=== PATIENT | female | born 1965 | race Caucasian/White ===

== ENCOUNTER 2016-09-20 21:28 | Emergency (ER) | payer BC ==
--- NOTE | 2016-09-20 22:19 | ED ---
General Adult HPI - General Chief complaint: Head Injury Stated complaint: Head Injury Time Seen by Provider: 09/20/16 21:50 Source: patient, family, RN notes reviewed Mode of arrival: wheelchair Limitations: no limitations - History of Present Illness Initial comments: 50-year-old female presents to the emergency department with a chief complaint of head injury. Patient without in the garden today and then she came in and has been states she was acting differently. He states when she came in she told him he fell but she was coming with the dog and she was carrying baskets we think much of it. Patient's and states she started kind of funny she started to say things just didn't seem real and she didn't seem to remember the event. He was concerned due to her behavior so they thought that they should be evaluated. Patient denies any recent fever, chills, shortness of breath, chest pain, back pain, abdominal pain, nausea vomiting, numbness or tingling, dysuria or hematuria, constipation or diarrhea, visual changes, or any other current symptoms. - Related Data Home Medications Medication Instructions Recorded Confirmed Fexofenadine HCl 180 mg PO DAILY 09/20/16 09/20/16 Fluticasone Nasal [place] [Flonase 1 spray EA NOSTRIL DAILY 09/20/16 09/20/16 Nasal [place]] Fluticasone Propionate [Flovent 2 puff INHALATION RT-DAILY 09/20/16 09/20/16 Hfa 110mcg] Allergies Allergy/AdvReac Type Severity Reaction Status Date / Time amoxicillin AdvReac Rash/Hives Verified 09/20/16 22:22 cefaclor [From Ceclor] AdvReac Rash/Hives Verified 09/20/16 22:22 Review of Systems ROS Statement: Those systems with pertinent positive or pertinent negative responses have been documented in the HPI. ROS Other: All systems not noted in ROS Statement are negative. Past Medical History Past Medical History: Asthma History of Any Multi-Drug Resistant Organisms: None Reported Past Surgical History: Orthopedic Surgery, Tonsillectomy Additional Past Surgical History / Comment(s): Right ankle Past Psychological History: No Psychological Hx Reported Smoking Status: Never smoker Past Alcohol Use History: Daily Past Drug Use History: None Reported General Exam Limitations: no limitations General appearance: alert Head exam: Present: atraumatic, normocephalic, normal inspection Eye exam: Present: normal appearance, PERRL, EOMI. Absent: scleral icterus, conjunctival injection, periorbital swelling ENT exam: Present: normal exam, mucous membranes moist Neck exam: Present: normal inspection. Absent: tenderness, meningismus, lymphadenopathy Respiratory exam: Present: normal lung sounds bilaterally. Absent: respiratory distress, wheezes, rales, rhonchi, stridor Cardiovascular Exam: Present: regular rate, normal rhythm, normal heart sounds. Absent: systolic murmur, diastolic murmur, rubs, gallop, clicks Extremities exam: Present: normal inspection, full ROM, normal capillary refill. Absent: tenderness, pedal edema, joint swelling, calf tenderness Neurological exam: Present: alert, oriented X3, CN II-XII intact, normal gait, reflexes normal. Absent: motor sensory deficit Psychiatric exam: Present: normal affect, normal mood Skin exam: Present: warm, dry, intact, normal color. Absent: rash Course Vital Signs 09/20/16 09/20/16 09/20/16 21:35 22:13 23:25 Temperature 97.3 F L 98.0 F Pulse Rate 91 78 Respiratory 18 16 Rate Blood Pressure 181/118 163/102 151/102 O2 Sat by Pulse 99 97 Oximetry Medical Decision Making - Medical Decision Making 50-year-old female presents emergency Department chief complaint of fall and head injury. Patient this time is neurologically intact however she does have some confusion. Patient went for computed tomography scan. At this time patient's computed tomography scan was reviewed and negative. At this time patient's confusion has improved. We discussed that we like to transfer her to the [facility] due to the fact we are concerned about the patient having a concussion with her confusion and head injury we like her to be watched overnight due to her symptoms. The patient states that she does not want to stay here she would like to go home. Family states that they will not be transferred. The like to go home he states that she is doing better in the local home. We did discuss that she could start to have a brain bleed we discussed this could lead to we did discuss other etiologies. The history is vague because she does not really remember what happened there is suspicion that she was likely to bilateral posterior causing an injury. Discussed it could be from her heart it could be seizure many other causes. This and he stated they would like to go home. At this time they will decide to make sure CAT scan was negative. They believe that she most likely just has a concussion. At this time the patient will be leaving AGAINST MEDICAL ADVICE. - Radiology Data Radiology results: report reviewed, image reviewed Disposition Clinical Impression: Fall Disposition: Left Against Medical Advice Instructions: Concussion (ED), Head Injury (ED) Referrals: Luan Mota MD [Primary Care Provider] - 1-2 days
[2016-09-20 23:29] VITALS: BP 151/102; PULSE 78; RESP 16; TEMP 98
--- NOTE | 2016-09-20 23:34 | CT ---
EXAM: CT Head Without Intravenous Contrast CLINICAL HISTORY: Reason: Pain TECHNIQUE: Axial computed tomography images of the head/brain without intravenous contrast. CTDI is 60.30 mGy and DLP is 1067.50 mGy-cm. This CT exam was performed using one or more of the following dose reduction techniques: automated exposure control, adjustment of the mA and/or kV according to patient size, and/or use of iterative reconstruction technique. COMPARISON: No relevant prior studies available. FINDINGS: Brain: Unremarkable. No hemorrhage. No significant white matter disease. No edema. Ventricles: Age appropriate atrophy. No ventriculomegaly or midline shift. Bones/joints: Unremarkable. No acute fracture. Soft tissues: Unremarkable. Sinuses: Unremarkable as visualized. No acute sinusitis. Mastoid air cells: Unremarkable as visualized. No mastoid effusion. IMPRESSION: No acute disease. No findings to explain pain. EXAM: CT Cervical Spine Without Intravenous Contrast CLINICAL HISTORY: Reason: Pain TECHNIQUE: Axial computed tomography images of the cervical spine without intravenous contrast. CTDI is 14.10 mGy and DLP is 295.70 mGy-cm. This CT exam was performed using one or more of the following dose reduction techniques: automated exposure control, adjustment of the mA and/or kV according to patient size, and/or use of iterative reconstruction technique. COMPARISON: No relevant prior studies available. FINDINGS: Vertebrae: Multilevel spine degenerative changes mostly mild to moderate at C5-6. No acute fracture. Discs/spinal canal/neural foramina: No acute findings. No spinal canal stenosis. Soft tissues: Unremarkable. Lung apices: Unremarkable as visualized. IMPRESSION: No acute or healing fracture or malalignment.
== END 2016-09-21 | disposition left against medical advice (07) ==
LOC: EC 21:28
DX: S09.90XA Unspecified injury of head, initial encounter (principal); R41.0 Disorientation, unspecified; J45.909 Unspecified asthma, uncomplicated; Z88.0 Allergy status to penicillin; Z88.1 Allergy status to other antibiotic agents; Z79.51 Long term (current) use of inhaled steroids; Z79.899 Other long term (current) drug therapy; Z53.29 Procedure and treatment not carried out because of patient's decision for other reasons; W19.XXXA Unspecified fall, initial encounter; Y93.89 Activity, other specified; Y92.096 Garden or yard of other non-institutional residence as the place of occurrence of the external cause
CPT/HCPCS: 70450; 72125; 99283

== ENCOUNTER → 2017-02-16 | Outpatient (CLI) | payer BC ==
--- NOTE | 2017-02-18 12:43 | MM ---
Reason for exam: screening (asymptomatic). Last mammogram was performed 1 year ago. History: Patient is nulliparous. Took hormonal contraceptives for 15 years. Physical Findings: A clinical breast exam by your physician is recommended on an annual basis and results should be correlated with mammographic findings. MG Screening Mammo w CAD Bilateral CC and MLO view(s) were taken. Prior study comparison: February 02, 2016, bilateral MG screening mammo w CAD. January 31, 2015, bilateral MG screening mammo w CAD. The breast tissue is extremely dense which could obscure a lesion on mammography. There are typically benign calcifications in both breasts. There is chronic nodularity in the left breast. No significant changes when compared with prior studies. ASSESSMENT: Benign, BI-RAD 2 RECOMMENDATION: Routine screening mammogram of both breasts in 1 year.
== END | disposition home or self-care (01) ==
LOC: RADMAMWWP 11:52
PROVIDERS: ATTEND Internal Medicine
DX: Z12.31 Encounter for screening mammogram for malignant neoplasm of breast (principal)
CPT/HCPCS: 77067

== ENCOUNTER 2018-01-17 08:16 | Day surgery (SDC) | payer BC ==
[2018-01-15 09:21] VITALS: BMI 29.9
[~2018-01-17 08:16] MED LIST: LACTATED RINGERS 1,000 ML IV SCH
[2018-01-17 08:41] VITALS: RESP 16; TEMP 97.6
[2018-01-17] MEDS ORDERED: LIDOCAINE 1% 20 ML VIAL (10MG/ML) FOR IV START INTRADERMA ONE (08:48)
[2018-01-17] MEDS ORDERED: PROPOFOL 10 MG/ML 20 ML VIAL IV ONE (09:02)
--- NOTE | 2018-01-17 09:09 | P.GSHP ---
History of Present Illness H&P Date: 01/17/18 Chief Complaint: Colonoscopy, screening This a 52-year-old female who presents today for screening colonoscopy. Patient denies a significant GI complaints. Past Medical History Past Medical History: Asthma History of Any Multi-Drug Resistant Organisms: None Reported Past Surgical History: Orthopedic Surgery, Tonsillectomy Additional Past Surgical History / Comment(s): Right ankle SX Past Anesthesia/Blood Transfusion Reactions: No Reported Reaction Smoking Status: Never smoker - Past Family History Mother Family Medical History: No Reported History Medications and Allergies Home Medications Medication Instructions Recorded Confirmed Type Fexofenadine HCl 180 mg PO DAILY 09/20/16 01/17/18 History Fluticasone Nasal [place] [Flonase 1 spray EA NOSTRIL DAILY 09/20/16 01/17/18 History Nasal [place]] Fluticasone Propionate [Flovent 2 puff INHALATION RT-DAILY 09/20/16 01/17/18 History Hfa 110mcg] Allergies Allergy/AdvReac Type Severity Reaction Status Date / Time amoxicillin AdvReac Rash/Hives Verified 01/15/18 09:18 cefaclor [From Ceclor] AdvReac Rash/Hives Verified 01/15/18 09:18 Surgical - Exam Vital Signs Temp Pulse Resp BP Pulse Ox 97.6 F 66 16 165/106 100 01/17/18 08:30 01/17/18 08:30 01/17/18 08:30 01/17/18 08:30 01/17/18 08:30 - General well developed, well nourished, no distress - Eyes PERRL - ENT normal pinna - Neck no masses - Respiratory normal expansion - Cardiovascular Rhythm: regular - Abdomen Abdomen: soft, non tender Assessment and Plan Assessment: We will perform screening colonoscopy
[2018-01-17 09:41] VITALS: BP 140/95; PULSE 62
--- NOTE | 2018-01-17 09:41 | P.OP ---
Date of Procedure: 01/17/18 Preoperative Diagnosis: Screening colonoscopy Postoperative Diagnosis: Diverticulosis Procedure(s) Performed: Colonoscopy Anesthesia: MAC Surgeon: Constantin Saleh Pathology: none sent Condition: stable Disposition: PACU Description of Procedure: The patient's placed on the endoscopy table in the lateral position. She received IV sedation. Digital rectal exam was performed which revealed no abnormalities. The possible colonoscope was then placed patient anus and passed throughout the entire colon. The ileocecal valve was visually is. The cecum, ascending and transverse colon appeared normal. In the descending and sigmoid colon there is mild diverticular changes. The scope was then brought back the rectum and this appeared normal. Scope was withdrawn for patient.
== END 2018-01-17 10:15 | disposition home or self-care (01) ==
LOC: ORWHC2ENDO 08:16
PROVIDERS: ATTEND Surgery
DX: Z12.11 Encounter for screening for malignant neoplasm of colon (principal); K57.30 Diverticulosis of large intestine without perforation or abscess without bleeding; J45.909 Unspecified asthma, uncomplicated; Z79.899 Other long term (current) drug therapy; Z88.1 Allergy status to other antibiotic agents; Z88.0 Allergy status to penicillin
CPT/HCPCS: 81025; J2704; G0121; 45378

== ENCOUNTER 2018-01-22 12:36 | Observation (INO) | payer BC ==
[2018-01-22] MEDS ORDERED: NITROGLYCERIN OINT 1 INCH/GM PACKET TOPICAL STA (12:52)
[2018-01-22] MEDS ORDERED: ASPIRIN 81 MG PO STA (12:52)
--- NOTE | 2018-01-22 12:57 | ED ---
General Adult HPI - General Stated complaint: chest pain Time Seen by Provider: 01/22/18 12:40 Source: patient, EMS, RN notes reviewed Mode of arrival: EMS Limitations: no limitations - History of Present Illness Initial comments: Patient is a pleasant 52-year-old female presenting to the emergency department chest discomfort. Onset was an hour ago while at work. Patient has been under increased stress recently. Patient had tightness in her chest with radiation to the left jaw. Discomfort has now resolved. No associated dyspnea, nausea, or diaphoresis. No history of similar symptoms previously. - Related Data Home Medications Medication Instructions Recorded Confirmed Fexofenadine HCl 180 mg PO DAILY 09/20/16 01/22/18 Fluticasone Propionate [Flovent 2 puff INHALATION RT-DAILY 01/22/18 01/22/18 Hfa 44 mcg] Allergies Allergy/AdvReac Type Severity Reaction Status Date / Time amoxicillin AdvReac Rash/Hives Verified 01/22/18 13:23 cefaclor [From Ceclor] AdvReac Rash/Hives Verified 01/22/18 13:23 Review of Systems ROS Statement: Those systems with pertinent positive or pertinent negative responses have been documented in the HPI. ROS Other: All systems not noted in ROS Statement are negative. Constitutional: Denies: fever Eyes: Denies: eye pain ENT: Denies: ear pain Respiratory: Denies: cough Cardiovascular: Reports: as per HPI, chest pain Endocrine: Denies: fatigue Gastrointestinal: Denies: abdominal pain Genitourinary: Denies: dysuria Musculoskeletal: Denies: back pain Skin: Denies: rash Neurological: Denies: weakness Past Medical History Past Medical History: Asthma History of Any Multi-Drug Resistant Organisms: None Reported Past Surgical History: Orthopedic Surgery, Tonsillectomy Additional Past Surgical History / Comment(s): Right ankle SX Past Anesthesia/Blood Transfusion Reactions: No Reported Reaction Smoking Status: Never smoker - Past Family History Mother Family Medical History: No Reported History General Exam Limitations: no limitations General appearance: alert, in no apparent distress Head exam: Present: atraumatic Eye exam: Present: normal appearance, PERRL ENT exam: Present: normal oropharynx Neck exam: Present: normal inspection Respiratory exam: Present: normal lung sounds bilaterally. Absent: chest wall tenderness Cardiovascular Exam: Present: regular rate, normal rhythm Expanded Peripheral pulses: 2+: Radial (R), Radial (L), Dorsalis Pedis (R), Dorsalis Pedis (L) GI/Abdominal exam: Present: soft. Absent: tenderness Extremities exam: Present: normal inspection. Absent: pedal edema, calf tenderness Neurological exam: Present: alert Psychiatric exam: Present: normal affect, normal mood Skin exam: Present: normal color Course Vital Signs 01/22/18 12:40 Temperature 97.9 F Pulse Rate 69 Respiratory 18 Rate Blood Pressure 158/10 O2 Sat by Pulse 99 Oximetry EKG Findings - EKG Comments: EKG Findings:: Normal sinus rhythm 73. MN 142. QRS 96. QT 426. QTc 469. Left axis. Normal QRS. No acute ST change. Medical Decision Making - Medical Decision Making Patient reevaluated and resting comfortably in bed. No chest discomfort. Patient updated on results and plan. Case was crusted detail with Dr. Mota, who will admit his patient. - Lab Data Result diagrams: 01/22/18 13:10 01/22/18 13:10 Lab Results 01/22/18 01/22/18 01/22/18 Range/Units 13:10 13:10 13:10 WBC 6.0 (3.8-10.6) k/uL RBC 5.05 (3.80-5.40) m/uL Hgb 15.7 (11.4-16.0) gm/dL Hct 46.9 H (34.0-46.0) % MCV 92.9 D (80.0-100.0) fL MCH 31.0 (25.0-35.0) pg MCHC 33.4 (31.0-37.0) g/dL RDW 12.7 (11.5-15.5) % Plt Count 254 (150-450) k/uL Neutrophils % 52 % Lymphocytes % 33 % Monocytes % 8 % Eosinophils % 2 % Basophils % 1 % Neutrophils # 3.1 (1.3-7.7) k/uL Lymphocytes # 2.0 (1.0-4.8) k/uL Monocytes # 0.5 (0-1.0) k/uL Eosinophils # 0.1 (0-0.7) k/uL Basophils # 0.0 (0-0.2) k/uL PT (9.0-12.0) sec INR (<1.2) APTT (22.0-30.0) sec Sodium 138 (137-145) mmol/L Potassium 4.1 (3.5-5.1) mmol/L Chloride 104 (98-107) mmol/L Carbon Dioxide 27 (22-30) mmol/L Anion Gap 7 mmol/L BUN 14 (7-17) mg/dL Creatinine 0.81 (0.52-1.04) mg/dL Est GFR (CKD-EPI)AfAm >90 (>60 ml/min/1.73 sqM) Est GFR (CKD-EPI)NonAf 84 (>60 ml/min/1.73 sqM) Glucose 100 H (74-99) mg/dL Calcium 9.6 (8.4-10.2) mg/dL Magnesium 1.8 (1.6-2.3) mg/dL Total Bilirubin 0.6 (0.2-1.3) mg/dL AST 27 (14-36) U/L ALT 28 (9-52) U/L Alkaline Phosphatase 85 (38-126) U/L Total Creatine Kinase 73 (30-135) U/L CK-MB (CK-2) 1.1 (0.0-2.4) ng/mL CK-MB (CK-2) Rel Index 1.5 Troponin I <0.012 (0.000-0.034) ng/mL Total Protein 7.5 (6.3-8.2) g/dL Albumin 4.2 (3.5-5.0) g/dL 01/22/18 Range/Units 13:10 WBC (3.8-10.6) k/uL RBC (3.80-5.40) m/uL Hgb (11.4-16.0) gm/dL Hct (34.0-46.0) % MCV (80.0-100.0) fL MCH (25.0-35.0) pg MCHC (31.0-37.0) g/dL RDW (11.5-15.5) % Plt Count (150-450) k/uL Neutrophils % % Lymphocytes % % Monocytes % % Eosinophils % % Basophils % % Neutrophils # (1.3-7.7) k/uL Lymphocytes # (1.0-4.8) k/uL Monocytes # (0-1.0) k/uL Eosinophils # (0-0.7) k/uL Basophils # (0-0.2) k/uL PT 10.0 (9.0-12.0) sec INR 0.9 (<1.2) APTT 24.4 (22.0-30.0) sec Sodium (137-145) mmol/L Potassium (3.5-5.1) mmol/L Chloride (98-107) mmol/L Carbon Dioxide (22-30) mmol/L Anion Gap mmol/L BUN (7-17) mg/dL Creatinine (0.52-1.04) mg/dL Est GFR (CKD-EPI)AfAm (>60 ml/min/1.73 sqM) Est GFR (CKD-EPI)NonAf (>60 ml/min/1.73 sqM) Glucose (74-99) mg/dL Calcium (8.4-10.2) mg/dL Magnesium (1.6-2.3) mg/dL Total Bilirubin (0.2-1.3) mg/dL AST (14-36) U/L ALT (9-52) U/L Alkaline Phosphatase (38-126) U/L Total Creatine Kinase (30-135) U/L CK-MB (CK-2) (0.0-2.4) ng/mL CK-MB (CK-2) Rel Index Troponin I (0.000-0.034) ng/mL Total Protein (6.3-8.2) g/dL Albumin (3.5-5.0) g/dL - Radiology Data Radiology results: image reviewed (Chest x-ray shows no acute process) Disposition Clinical Impression: Chest pain Disposition: ADMITTED IP TO THIS [facility] Is patient prescribed a controlled substance at d/c from ED?: No Referrals: Luan Mota MD [Primary Care Provider] - 1-2 days Decision Time: 15:11
[2018-01-22 13:44] LABS: Basophils % (A) 1 %; Eosinophils # (A) 0.1 k/uL (0-0.7); Eosinophils % (A) 2 %; HCT 46.9 % (34.0-46.0); HGB 15.7 gm/dL (11.4-16.0); Lymphocytes % (A) 33 %; MCHC 33.4 g/dL (31.0-37.0); Mean Platelet Volume 7.5; Monocytes # (A) 0.5 k/uL (0-1.0); Monocytes % (A) 8 %; Neutrophils # (A) 3.1 k/uL (1.3-7.7); Neutrophils % (A) 52 %; Platelet Count 254 k/uL (150-450); RBC 5.05 m/uL (3.80-5.40); RDW 12.7 % (11.5-15.5)
[2018-01-22 13:45] LABS: INR 0.9 (<1.2); Partial Thromboplastin Time 24.4 sec (22.0-30.0)
[2018-01-22 13:46] LABS: MCV 92.9 fL (80.0-100.0)
[2018-01-22 13:47] LABS: ALT 28 U/L (9-52); AST 27 U/L (14-36); Albumin 4.2 g/dL (3.5-5.0); Alkaline Phosphatase 85 U/L (38-126); Anion Gap 7 mmol/L; Blood Urea Nitrogen 14 mg/dL (7-17); Calcium 9.6 mg/dL (8.4-10.2); Carbon Dioxide 27 mmol/L (22-30); Chloride 104 mmol/L (98-107); Glucose 100 mg/dL (74-99); Magnesium 1.8 mg/dL (1.6-2.3); Potassium 4.1 mmol/L (3.5-5.1); Sodium 138 mmol/L (137-145); Total Bilirubin 0.6 mg/dL (0.2-1.3); Total Protein 7.5 g/dL (6.3-8.2)
--- NOTE | 2018-01-22 14:00 | XR ---
EXAMINATION TYPE: XR chest 2V DATE OF EXAM: 01/22/2018 COMPARISON: None INDICATION: Chest pain, asthma TECHNIQUE: Frontal and lateral views of the chest are obtained. FINDINGS: The heart size is normal. The pulmonary vasculature is normal. The lungs are clear. IMPRESSION: 1. No acute pulmonary process.
[2018-01-22 14:12] LABS: Creatine Kinase 73 U/L (30-135)
[2018-01-22 14:25] LABS: Creatine Kinase MB 1.1 ng/mL (0.0-2.4); Troponin I <0.012 ng/mL (0.000-0.034)
[2018-01-22] MEDS ORDERED: NITROGLYCERIN SL TABS 0.4 MG TAB SUBLINGUAL PRN (15:11)
--- NOTE | 2018-01-22 15:39 | P.HPIM ---
History of Present Illness H&P Date: 01/22/18 Chief Complaint: chest pain This is a 52-year-old female patient who presented to the emergency room with complaints of chest pain. Patient states she was at work when she started to experience chest tightness in her chest that radiated to her left jaw patient's discomfort lasted approximately 20 minutes and then improved. Patient denies any nausea vomiting or diaphoresis with chest pain episode. Patient does admit to being under increased stress with her parents. Patient does have a past medical history for asthma orthopedic surgery and drinks approximately 2-3 times a day. Patient denies any nicotine dependence. Patient denies any significant family cardiac history. X-ray completed showing no acute pulmonary process. EKG completed showing normal sinus rhythm. Normal EKG. Initial troponin negative. Cardiology services have been consulted. This time patient denies any chest pain or shortness breath. Patient denies nausea vomiting or diarrhea. Patient denies any urinary burning or frequency. Review of Systems please refer to HPI otherwise unremarkable Past Medical History Past Medical History: Asthma History of Any Multi-Drug Resistant Organisms: None Reported Past Surgical History: Orthopedic Surgery, Tonsillectomy Additional Past Surgical History / Comment(s): Right ankle SX Past Anesthesia/Blood Transfusion Reactions: No Reported Reaction Smoking Status: Never smoker - Past Family History Mother Family Medical History: No Reported History Medications and Allergies Home Medications Medication Instructions Recorded Confirmed Type Fexofenadine HCl 180 mg PO DAILY 09/20/16 01/22/18 History Fluticasone Propionate [Flovent 2 puff INHALATION RT-DAILY 01/22/18 01/22/18 History Hfa 44 mcg] Allergies Allergy/AdvReac Type Severity Reaction Status Date / Time amoxicillin AdvReac Rash/Hives Verified 01/22/18 13:23 cefaclor [From Ceclor] AdvReac Rash/Hives Verified 01/22/18 13:23 Physical Exam Vitals: Vital Signs Temp Pulse Resp BP Pulse Ox 01/22/18 12:40 97.9 F 69 18 158/10 99 Intake and Output 01/22/18 01/22/18 01/22/18 06:59 14:59 22:59 Other: Weight 81.647 kg Head normocephalic Neck supple Lungs clear to auscultation bilaterally no wheezing or crackles Heart regular rate and rhythm S1-S2, no rub or gallop Abdomen is soft nontender nondistended positive bowel sounds no hepatosplenomegaly Extremities no edema Neuro alert and orientated to 3 Results CBC & Chem 7: 01/22/18 13:10 01/22/18 13:10 Labs: Abnormal Lab Results - Last 24 Hours (Table) 01/22/18 01/22/18 Range/Units 13:10 13:10 Hct 46.9 H (34.0-46.0) % Glucose 100 H (74-99) mg/dL Assessment and Plan Assessment: 1. Chest pain. Chest x-ray completed showing no acute pulmonary process. EKG completed showing normal sinus rhythm. Normal EKG. Initial troponin negative. Cardiac panel has been ordered. Cardiology services consulted 2. History of asthma. No exacerbation at this time 3. History of tonsillectomy 4. History of right ankle surgery AM CBC and CMP ordered awaiting cardiology input Time with Patient: Greater than 30 (Greater than 60% of the total time spent in counseling and coordination of care. I performed an examination of the patient and discussed their management with the Nurse Practitioner. I have reviewed the Nurse Practitioner's notes and agree with the documented findings and plan of care)
[2018-01-22] MEDS: NITROGLYCERIN OINT 1 INCH/GM PACKET TOPICAL SCH ×2 (17:59→22:41)
[2018-01-22 20:40] LABS: Creatine Kinase 60 U/L (30-135)
[2018-01-22 20:54] LABS: Creatine Kinase MB 0.9 ng/mL (0.0-2.4); Troponin I <0.012 ng/mL (0.000-0.034)
[2018-01-23 02:22] LABS: Creatine Kinase 61 U/L (30-135)
[2018-01-23 02:35] LABS: Creatine Kinase MB 0.8 ng/mL (0.0-2.4); Troponin I <0.012 ng/mL (0.000-0.034)
[2018-01-23] MEDS: NITROGLYCERIN OINT 1 INCH/GM PACKET TOPICAL SCH (03:32)
[2018-01-23 06:32] LABS: Basophils % (A) 1 %; Eosinophils # (A) 0.2 k/uL (0-0.7); Eosinophils % (A) 3 %; HCT 44.8 % (34.0-46.0); HGB 14.8 gm/dL (11.4-16.0); Lymphocytes % (A) 33 %; MCH 31.2 pg (25.0-35.0); MCHC 33.1 g/dL (31.0-37.0); Mean Platelet Volume 7.7; Monocytes # (A) 0.5 k/uL (0-1.0); Monocytes % (A) 8 %; Neutrophils # (A) 3.3 k/uL (1.3-7.7); Neutrophils % (A) 54 %; Platelet Count 233 k/uL (150-450); RBC 4.76 m/uL (3.80-5.40); RDW 12.5 % (11.5-15.5); WBC 6.1 k/uL (3.8-10.6)
[2018-01-23 06:36] LABS: ALT 34 U/L (9-52); AST 23 U/L (14-36); Albumin 3.8 g/dL (3.5-5.0); Alkaline Phosphatase 70 U/L (38-126); Anion Gap 7 mmol/L; Blood Urea Nitrogen 13 mg/dL (7-17); Calcium 9.3 mg/dL (8.4-10.2); Carbon Dioxide 25 mmol/L (22-30); Chloride 107 mmol/L (98-107); Cholesterol 216 mg/dL (<200); Glucose 107 mg/dL (74-99); HDL Cholesterol 66 mg/dL (40-60); LDL Cholesterol,Calculated 131 mg/dL (0-99); Potassium 4.6 mmol/L (3.5-5.1); Sodium 139 mmol/L (137-145); Total Bilirubin 0.6 mg/dL (0.2-1.3); Total Protein 6.7 g/dL (6.3-8.2); Triglycerides 96 mg/dL (<150)
--- NOTE | 2018-01-23 07:36 | CONS ---
CONSULTATION Mrs. Leyva is a 52-year-old female with no cardiac history who presented with symptoms of chest discomfort radiating to the jaw. The discomfort started while she was at her desk working radiating up to the jaw. It was not associated with any other symptoms and lasted for about 20 minutes, came into the emergency room and subsequently admitted. At the time of my evaluation, she is pain free. She is relatively active, walks at work during her lunch break and has no associated dyspnea or chest discomfort. She denies any dizziness, palpitation, or syncope. No PND, orthopnea, or peripheral edema. She has no prior documented history of obstructive coronary artery disease. Her coronary risk factors are negative for smoking. She is nondiabetic. She has remote history of hypertension, but not at this time. Her lipid profile is not available. MEDICATIONS: Her medications include Flovent and fexofenadine. REVIEW OF SYSTEMS: RESPIRATORY SYSTEM: She has history of asthma, but has been stable. No significant dyspnea on exertion. GI SYSTEM: No recent GI bleed. No peptic ulcer disease. SYSTEM: No dysuria or hematuria. NERVOUS SYSTEM: No stroke or seizure. PHYSICAL EXAMINATION: She is a 52-year-old female, alert, oriented, in no apparent distress. Blood pressure 119/70 with the heart rate in the 60s. HEAD: Normocephalic. EYES: Sclerae anicteric. NECK: Good carotid upstroke. No bruit. No jugular venous distention. LUNGS: Clear to auscultation. HEART: Regular rate and rhythm. S1, S2. No S3. No S4. No murmur or rub. ABDOMEN: Soft, nontender. Positive bowel sounds. No organomegaly. EXTREMITIES: No edema. Intact distal pulses. LAB DATA: Lab data revealed troponin less than 0.012 for 3 samples. BUN creatinine 13 and 0.78. Hemoglobin of 14.8. Cholesterol 216, LDL of 131 with an HDL of 66. EKG revealed a sinus mechanism, borderline left axis deviation, poor R progression. Chest x-ray shows no infiltrate. IMPRESSION: 1. Chest discomfort has atypical features for ischemic heart disease probably noncardiac in etiology. 2. History of bronchial asthma, stable. 3. Hyperlipidemia. RECOMMENDATION: From the cardiac standpoint, her symptoms do not suggest to be ischemic in origin. I would proceed with stress echocardiogram and depending on those findings, further recommendation will be made. Thank you for this consult. We will follow with you. MMODL / IJN: [id number] /
[2018-01-23] MEDS: FLUTICASONE 110 MCG INHALER INHALATION SCH ×2 (07:54→20:25)
[2018-01-23] MEDS ORDERED: FLUTICASONE 44 MCG INHALER INHALATION SCH (08:00)
--- NOTE | 2018-01-23 09:19 | ECHOF ---
Referral Reason:cp MEASUREMENTS -------- HEIGHT: 165.1 cm WEIGHT: 81.6 kg BP: 128/90 RVIDd: 2.9 cm (< 3.3) IVSd: 1.1 cm (0.6 - 1.1) LVIDd: 3.8 cm (3.9 - 5.3) LVPWd: 1.0 cm (0.6 - 1.1) IVSs: 1.6 cm LVIDs: 2.9 cm LVPWs: 1.2 cm Ao Diam: 2.9 cm (2.0 - 3.7) AV Cusp: 1.9 cm (1.5 - 2.6) MV EXCURSION: 19.132 mm (> 18.000) MV EF SLOPE: 85 mm/s (70 - 150) EPSS: 0.6 cm MV E Nash: 0.63 m/s MV DecT: 320 ms MV A Nash: 0.86 m/s MV E/A Ratio: 0.73 RAP: 5.00 mmHg RVSP: 19.78 mmHg FINDINGS -------- Sinus rhythm. This was a technically good study. LV size, wall thickness and systolic function are normal, with an EF greater than 55%. The left farzana tricular size is normal. The right ventricle is normal in size. The left atrial size is normal. The right atrial size is normal. There is mild aortic valve sclerosis. There is no evidence of aortic regurgitation. The mitral valve is normal. Mild mitral regurgitation is present. Mild tricuspid regurgitation present. Right ventricular systolic pressure is normal at < 35 mmHg. The right ventricular systolic pressure, as measured by Doppler, is 19.78mmHg. Trace/mild (physiologic) pulmonic regurgitation. The aortic root size is normal. Ascending Aortic is dilated and measures 4.0cm. There is no pericardial effusion. CONCLUSIONS -------- 1. Sinus rhythm. 2. This was a technically good study. 3. LV size, wall thickness and systolic function are normal, with an EF greater than 55%. 4. The left ventricular size is normal. 5. The left atrial size is normal. 6. There is mild aortic valve sclerosis. 7. Mild mitral regurgitation is present. 8. Mild tricuspid regurgitation present. 9. Right ventricular systolic pressure is normal at < 35 mmHg. 10. Trace/mild (physiologic) pulmonic regurgitation. 11. The aortic root size is normal. 12. Ascending Aortic is dilated and measures 4.0cm. 13. There is no pericardial effusion. MECHANIC FIELD SERVICE: Aria Naranjo RDCS
[2018-01-23] MEDS: ASPIRIN 325 MG TAB PO SCH (11:52)
[2018-01-23] MEDS: LORATADINE 10 MG TAB PO SCH (11:52)
[2018-01-23] MEDS ORDERED: ATORVASTATIN 80 MG TAB PO STA (12:24)
[2018-01-23] MEDS ORDERED: ALPRAZolam 0.5 MG TAB PO PRN (12:24)
[2018-01-23] MEDS ORDERED: ASPIRIN 325 MG TAB PO STA (12:24)
[2018-01-23] MEDS ORDERED: ALPRAZolam 0.25 MG TAB PO PRN (12:24)
[2018-01-23] MEDS ORDERED: NITROGLYCERIN SL TABS 0.4 MG TAB SUBLINGUAL PRN (12:24)
[2018-01-23] MEDS ORDERED: SODIUM CHLORIDE 0.9% 1,000 ML in EMPTY BAG 1 BAG IV ONE (12:24)
--- NOTE | 2018-01-23 13:55 | P.PN ---
Subjective Progress Note Date: 01/23/18 This is a 52-year-old female patient who presented to the emergency room with complaints of chest pain. Patient states she was at work when she started to experience chest tightness in her chest that radiated to her left jaw patient's discomfort lasted approximately 20 minutes and then improved. Patient denies any nausea vomiting or diaphoresis with chest pain episode. Patient does admit to being under increased stress with her parents. Patient does have a past medical history for asthma orthopedic surgery and drinks approximately 2-3 times a day. Patient denies any nicotine dependence. Patient denies any significant family cardiac history. X-ray completed showing no acute pulmonary process. EKG completed showing normal sinus rhythm. Normal EKG. Initial troponin negative. Cardiology services have been consulted. This time patient denies any chest pain or shortness breath. Patient denies nausea vomiting or diarrhea. Patient denies any urinary burning or frequency. On 01/23/2018 patient had stress test completed. Patient is requiring a cardiac cath tomorrow per cardiology. At this time patient denies any chest pain or shortness breath. Patient denies nausea vomiting or diarrhea. Patient denies any urinary burning or frequency. Objective - Vital Signs Vital signs: Vital Signs Temp 97.5 F L 01/23/18 11:49 Pulse 88 01/23/18 11:49 Resp 18 01/23/18 11:49 BP 152/102 01/23/18 11:49 Pulse Ox 97 01/23/18 11:49 Intake & Output 01/22/18 01/23/18 01/23/18 18:59 06:59 18:59 Intake Total 236 240 Balance 236 240 Weight 81.7 kg Intake: Oral 236 240 Other: Voiding Method Toilet Toilet # Voids 1 - Exam Head normocephalic Neck supple Lungs clear to auscultation bilaterally no wheezing or crackles Heart regular rate and rhythm S1-S2, no rub or gallop Abdomen is soft nontender nondistended positive bowel sounds no hepatosplenomegaly Extremities no edema Neuro alert and orientated to 3 - Labs CBC & Chem 7: 01/23/18 05:45 01/23/18 05:45 Labs: Abnormal Lab Results - Last 24 Hours (Table) 01/23/18 Range/Units 05:45 Glucose 107 H (74-99) mg/dL Cholesterol 216 H (<200) mg/dL LDL Cholesterol, Calc 131 H (0-99) mg/dL HDL Cholesterol 66 H (40-60) mg/dL Assessment and Plan Assessment: 1. Chest pain. Chest x-ray completed showing no acute pulmonary process. EKG completed showing normal sinus rhythm. Normal EKG. troponins negative. 2-D echo completed showing EF greater than 55%. Patient did have stress test completed. Per cardiology services patient will undergo cardiac cath tomorrow for further evaluation. 2. History of asthma. No exacerbation at this time 3. History of tonsillectomy 4. History of right ankle surgery I performed an examination of the patient and discussed their management with the Nurse Practitioner. I have reviewed the Nurse Practitioner's notes and agree with the documented findings and plan of care
[2018-01-23] MEDS: amLODIPine 5 MG TAB PO SCH (22:30)
[2018-01-24] MEDS: ASPIRIN 325 MG TAB PO SCH (06:17)
--- NOTE | 2018-01-24 07:25 | ECHOS ---
STRESS ECHOCARDIOGRAM INDICATIONS: Chest pain. BASELINE HEART RATE: 69 BASELINE BLOOD PRESSURE: 125/91 MAXIMUM HEART RATE: 158 MAXIMUM BLOOD PRESSURE: 189/92 85% MPHR: 143 100% MPHR: 168 METS: 10.1 MAXIMUM STAGE REACHED: 3 TOTAL EXERCISE TIME: 8:45 CLINICAL INFORMATION: Baseline rhythm is sinus mechanism, rate is 69, normal axis and intervals, poor R-wave progression, nonspecific ST wave changes. baseline blood pressure 125/91 minute smoking patient status post protocol for 8 minutes 45 seconds reaching peak rate of 158 beats per minute which is equal to 94% maximum predicted heart rate. Peak blood pressure 189/92 mmHg. Test was done 60 there no chest pain electrocardiograph monitoring revealed a no evidence of diagnostic ischemic ST deviation. FINDINGS: Baseline echocardiogram revealed normal function at peak exercise, there was mild hyper questionable hypokinesis on the anterolateral wall, although not as the images were not were suboptimal. CONCLUSION: 1. Average exercise tolerance with normal cardiac response to exercise 2. Probably abnormal stress echocardiogram with a anterolateral wall hypokinesis at peak exercise there was suggestive of stress induced ischemia. Probably on the left circumflex or diagonal branch territory. MMODL / IJN: [id number] / MTDD
[2018-01-24 07:26] LABS: Basophils % (A) 1 %; Eosinophils # (A) 0.2 k/uL (0-0.7); Eosinophils % (A) 3 %; HCT 47.7 % (34.0-46.0); HGB 15.4 gm/dL (11.4-16.0); Lymphocytes % (A) 34 %; MCH 30.2 pg (25.0-35.0); MCHC 32.2 g/dL (31.0-37.0); Mean Platelet Volume 7.8; Monocytes # (A) 0.5 k/uL (0-1.0); Monocytes % (A) 8 %; Neutrophils # (A) 3.1 k/uL (1.3-7.7); Neutrophils % (A) 52 %; Platelet Count 272 k/uL (150-450); RBC 5.08 m/uL (3.80-5.40); RDW 12.7 % (11.5-15.5); WBC 5.9 k/uL (3.8-10.6)
[2018-01-24 07:28] LABS: Potassium 4.4 mmol/L (3.5-5.1)
[2018-01-24 07:29] LABS: ALT 22 U/L (9-52); AST 23 U/L (14-36); Albumin 4.1 g/dL (3.5-5.0); Alkaline Phosphatase 73 U/L (38-126); Anion Gap 7 mmol/L; Blood Urea Nitrogen 14 mg/dL (7-17); Calcium 9.5 mg/dL (8.4-10.2); Carbon Dioxide 25 mmol/L (22-30); Chloride 107 mmol/L (98-107); Glucose 100 mg/dL (74-99); Sodium 139 mmol/L (137-145); Total Bilirubin 0.8 mg/dL (0.2-1.3); Total Protein 7.1 g/dL (6.3-8.2)
[2018-01-24] MEDS: FLUTICASONE 110 MCG INHALER INHALATION SCH ×2 (07:35→19:55)
[2018-01-24] MEDS ORDERED: SODIUM CHLORIDE 0.9% 1,000 ML IV ONE (09:14)
[2018-01-24] MEDS ORDERED: LIDOCAINE 2% INJ 20 MG/ML SQ ONE (09:46)
[2018-01-24] MEDS ORDERED: fentaNYL (PF) 50 MCG/ML 2 ML AMP IVP ONE (09:46)
[2018-01-24] MEDS ORDERED: MIDAZOLAM 2 MG/2 ML VIAL IVP ONE (09:46)
[2018-01-24] MEDS ORDERED: VERAPAMIL SYRINGE (5 MG/10 ML) INTRAARTER ONE (09:47)
[2018-01-24] MEDS ORDERED: HEPARIN SODIUM 1,000 UN/ML (10ML VL) IV ONE (10:01)
[2018-01-24] MEDS ORDERED: IOPAMIDOL-370 125ML BTL INJ ONE (10:07)
[2018-01-24] MEDS ORDERED: RX INFO: IV CONTRAST WAS GIVEN 1 EACH MISC MISCELLANE PRN (10:29)
[2018-01-24] MEDS ORDERED: SODIUM CHLORIDE 0.9% 1,000 ML IV SCH (10:30)
[2018-01-24] MEDS: LORATADINE 10 MG TAB PO SCH (11:21)
[2018-01-24] MEDS: amLODIPine 5 MG TAB PO SCH (11:21)
[2018-01-24] MEDS: METOPROLOL TARTRATE 25 MG TAB PO SCH ×2 (11:24→20:15)
--- NOTE | 2018-01-24 11:28 | CC ---
CARDIAC CATHETERIZATION REPORT Mrs. Leyva is a 52-year-old female with no prior documented coronary artery disease who presented with symptoms of chest discomfort with no enzymatic changes. She underwent stress echocardiogram that revealed lateral wall ischemia. In view of that, recommendation regarding cardiac catheterization. The procedures, risks and complication were discussed with the patient who is in agreement. 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 Using Xylocaine anesthesia and Seldinger technique, a 6-[place] Islander sheath was introduced in the right radial artery. Selective right and left coronary angiography were performed using 5- [place] Islander 3.5 bend right and left Juan Alberto catheter, multiple views of the coronary artery including hemiaxial views obtained. Following that, a 5-[place] tight pigtail catheter was introduced in the left ventricle and a 30 degree CASTLE view of the left ventricle was obtained. Following that, catheter and sheaths were removed. Hemostasis was obtained with deployment of a TR band. There was no immediate complication. Patient is returned to her room in a stable condition. Of note, the patient received 5000 units of intravenous heparin as well as intra - arterial verapamil. FINDINGS: FLUOROSCOPY: There was severe calcification involving the LAD and the diagonal branch territory. LEFT MAIN: This is a short size vessel, bifurcating into left circumflex, left anterior descending artery. Left main coronary artery has no evidence of high- grade stenosis. LEFT ANTERIOR DESCENDING ARTERY: This is a large-sized vessel, reaching toward the apex with a wraparound apex segment, giving rise to a large diagonal branch, proximally the ostium of the diagonal branch is a heavily calcified 99% stenosis. The proximal LAD after takeoff of the diagonal branch has a 70% lesion. The rest of the vessel has no high-grade stenosis. LEFT CIRCUMFLEX: This is a nondominant vessel, large in caliber giving rise to 3 obtuse marginal branch. The left circumflex as well as branches have no evidence of obstructive coronary artery disease. RIGHT CORONARY ARTERY: This is a large dominant vessel, bifurcating into PDA and posterolateral segment branches. The posterolateral segment and branches of the right coronary artery and mid segment has 20% to 30% plaque. It is calcified and has no evidence of high-grade stenosis. LEFT VENTRICULOGRAM: Left ventriculogram is performed in 30 degree CASTLE view and revealed normal ventricular size and systolic function. HEMODYNAMICS: There was no gradient across the aortic valve. The left ventricle end-diastolic pressure is 8-12 mmHg. CONCLUSION: 1. Heavily calcified proximal left anterior descending artery and diagonal branch. 2. Critical stenosis involving the takeoff of the diagonal branch as well as the proximal left anterior descending artery. 3. Mild disease in the right coronary artery. 4. Normal left ventricular size and systolic function. RECOMMENDATION: At this time, I offered the patient both option of high risk complex angioplasty and stenting of the LAD, diagonal branch bifurcation versus coronary artery bypass grafting. The rationale behind both approach were discussed with the patient. Will obtain the surgical consultation and depending on her decision, further recommendation will be made. Duration of procedure 24 minutes. MMODL / IJN: [id number] / ESTHELA
--- NOTE | 2018-01-24 14:56 | P.DS ---
Providers Date of admission: 01/22/18 15:12 Expected date of discharge: 01/24/18 Attending physician: Luan Mota Consults: 01/22/18 15:11 Consult Physician Urgent Consulting Provider: Fernandez Moonye Consult Reason/Comments: cp Do you want consulting provider notified?: Yes 01/24/18 10:32 Consult Physician Routine Consulting Provider: Jose Beavers Consult Reason/Comments: cabg Do you want consulting provider notified?: Already Contacted Primary care physician: [facility] Hospital Course: Discharge diagnosis 1. Chest pain. Chest x-ray completed showing no acute pulmonary process. EKG completed showing normal sinus rhythm. Normal EKG. Initial troponin negative. Patient underwent cardiac catheterization with Dr. Lazcano. atient underwent cardiac catheterization and was found to have heavily calcified proximal left anterior descending artery and diagonal branch. Critical stenosis involving the takeoff of the diagonal branch as well as the proximal left anterior descending artery and diagonal branch. Critical stenosis involving the takeoff of the diagonal branch as well as proximal left anterior descending artery. Mild disease in the right coronary artery. Normal left ventricle size and systolic function.. Options of high risk complex angioplasty and stenting of the LAD, diagonal branch bifurcation versus coronary artery bypass grafting were presented per cardiology. Cardiothoracic surgery has been consulted awaiting input and plan 2. History of asthma. No exacerbation at this time 3. History of tonsillectomy 4. History of right ankle surgery Hospital course This is a 52-year-old female patient who presented to the emergency room with complaints of chest pain. Patient states she was at work when she started to experience chest tightness in her chest that radiated to her left jaw patient's discomfort lasted approximately 20 minutes and then improved. Patient denies any nausea vomiting or diaphoresis with chest pain episode. Patient does admit to being under increased stress with her parents. Patient does have a past medical history for asthma orthopedic surgery and drinks approximately 2-3 times a day. Patient denies any nicotine dependence. Patient denies any significant family cardiac history. X-ray completed showing no acute pulmonary process. EKG completed showing normal sinus rhythm. Normal EKG. Initial troponin negative. Cardiology services have been consulted. This time patient denies any chest pain or shortness breath. Patient denies nausea vomiting or diarrhea. Patient denies any urinary burning or frequency. On 01/24/2018 patient underwent cardiac catheterization and was found to have heavily calcified proximal left anterior descending artery and diagonal branch. Critical stenosis involving the takeoff of the diagonal branch as well as the proximal left anterior descending artery and diagonal branch. Critical stenosis involving the takeoff of the diagonal branch as well as proximal left anterior descending artery. Mild disease in the right coronary artery. Normal left ventricle size and systolic function. Awaiting cardiothoracic input prior to discharge to discuss options of high risk complex angioplasty and stenting of the LAD diagonal branch bifurcation versus coronary artery bypass grafting. This time patient is resting comfortably in bed. Patient denies chest pain or shortness of breath. Patient denies nausea vomiting or diarrhea. Patient denies any urinary burning or frequency. Patient to be to be seen and evaluated by cardiothoracic surgeon prior to discharge to discuss plan of care Patient Condition at Discharge: Stable Plan - Discharge Summary Discharge Rx Participant: Yes New Discharge Prescriptions: New amLODIPine [Norvasc] 5 mg PO DAILY 30 Days #30 tab Aspirin 81 mg PO DAILY #30 chew Atorvastatin [Lipitor] 40 mg PO DAILY 30 Days #30 tab Metoprolol Tartrate [Lopressor] 25 mg PO BID 30 Days #60 tab Continue Fexofenadine HCl 180 mg PO DAILY Fluticasone Propionate [Flovent Hfa 44 mcg] 2 puff INHALATION RT-DAILY Discharge Medication List Fexofenadine HCl 180 mg PO DAILY 09/20/16 [History] Fluticasone Propionate [Flovent Hfa 44 mcg] 2 puff INHALATION RT-DAILY 01/22/18 [History] Aspirin 81 mg PO DAILY #30 chew 01/24/18 [Rx] Atorvastatin [Lipitor] 40 mg PO DAILY 30 Days #30 tab 01/24/18 [Rx] Metoprolol Tartrate [Lopressor] 25 mg PO BID 30 Days #60 tab 01/24/18 [Rx] amLODIPine [Norvasc] 5 mg PO DAILY 30 Days #30 tab 01/24/18 [Rx] Follow up Appointment(s)/Referral(s): Gaetano Elizabeth MD [STAFF PHYSICIAN] - 1 Week (Office will call to schedule an appt) Luan Moat MD [Primary Care Provider] - 1-2 days
--- NOTE | 2018-01-24 16:57 | P.GSCN ---
History of Present Illness Consult date: 01/24/18 Reason for Consult: Coronary artery disease, surgical recommendations Requesting physician: Gaetano Elizabeth History of present illness: This is a 52-year-old active female patient who follows with Dr. Mota on an outpatient basis. She has a previous medical history of remote hypertension, asthma, hyperlipidemia, daily alcohol use of 2-3 drinks per day. She presented to [facility] emergency room 2 days ago with complaints of chest tightness with radiation to her left jaw while at work. She denied any shortness of breath, nausea, diaphoresis, and states she never had these symptoms prior. EKG was completed which demonstrated normal sinus rhythm. Troponins were drawn and were negative 3. She was admitted to observation status, cardiology was consulted, and stress echocardiogram was completed demonstrating possible anterolateral wall ischemia. She was recommended to undergo heart catheterization which was completed today and which demonstrated ostial diagonal stenosis 99%, proximal LAD stenosis after the diagonal of 70%, mid RCA stenosis 20-30%. LV gram completed demonstrated normal LV function. Dr. Beavers from cardiothoracic surgery was consulted regarding recommendations for surgical revascularization versus high risk stenting. Review of Systems Review of systems was completed and was negative except as noted. - Cardiovascular Reports as per HPI, Reports chest pain Past Medical History Past Medical History: Asthma, Hyperlipidemia, Hypertension, Osteoarthritis (OA) Additional Past Medical History / Comment(s): diverticvulosis, eczema, migraines , shingles x2 last time was 5-7 years ago. in past was on bp meds but dr took her off it. History of Any Multi-Drug Resistant Organisms: None Reported Past Surgical History: Hernia Repair, Orthopedic Surgery, Tonsillectomy Additional Past Surgical History / Comment(s): Right ankle SX-hardware, colonoscopy, "hernia repair as infant" Past Anesthesia/Blood Transfusion Reactions: No Reported Reaction Past Psychological History: No Psychological Hx Reported Smoking Status: Never smoker Past Alcohol Use History: Daily Past Drug Use History: None Reported - Past Family History Mother Family Medical History: CVA/TIA Additional Family Medical History / Comment(s): tia Father Additional Family Medical History / Comment(s): back sx Medications and Allergies Home Medications Medication Instructions Recorded Confirmed Type Fexofenadine HCl 180 mg PO DAILY 09/20/16 01/22/18 History Fluticasone Propionate [Flovent 2 puff INHALATION RT-DAILY 01/22/18 01/22/18 History Hfa 44 mcg] Aspirin 81 mg PO DAILY #30 chew 01/24/18 Rx Atorvastatin [Lipitor] 40 mg PO DAILY 30 Days #30 tab 01/24/18 Rx Metoprolol Tartrate [Lopressor] 25 mg PO BID 30 Days #60 tab 01/24/18 Rx amLODIPine [Norvasc] 5 mg PO DAILY 30 Days #30 tab 01/24/18 Rx Allergies Allergy/AdvReac Type Severity Reaction Status Date / Time amoxicillin AdvReac Rash/Hives Verified 01/22/18 13:23 cefaclor [From Ceclor] AdvReac Rash/Hives Verified 01/22/18 13:23 Surgical - Exam Vital Signs Temp Pulse Resp BP Pulse Ox 97.9 F 69 18 158/10 99 01/22/18 12:40 01/22/18 12:40 01/22/18 12:40 01/22/18 12:40 01/22/18 12:40 - General well developed, well nourished, no distress, no pain - Eyes PERRL, normal ocular movement - ENT no hearing loss - Neck no masses, no bruits, trachea midline - Respiratory Lungs sounds clear bilaterally. Respirations even, nonlabored. Currently on room air with oxygen saturation 96%. No chest wall deformities. - Cardiovascular S1, S2 present. Regular rate and rhythm, sinus rhythm on telemetry. Palpable peripheral pulses bilaterally. No edema present. No calf pain or tenderness noted. No varicosities noted. Negative Nomi's test to left radial artery. - Abdomen Abdomen: soft, non tender, bowel sounds - Genitourinary Deferred - Rectum Deferred - Integumentary Right radial artery heart catheterization site with T-band present, no drainage. no rash, no growths - Neurologic normal coordination, normal sensation - Musculoskeletal normal gait, normal posture - Psychiatric oriented to time, oriented to person, oriented to place, speech is normal, memory intact Results - Labs 01/24/18 06:35 01/24/18 06:35 Abnormal Lab Results - Last 24 Hours (Table) 01/24/18 01/24/18 Range/Units 06:35 06:35 Hct 47.7 H (34.0-46.0) % Glucose 100 H (74-99) mg/dL Diabetes panel 01/24/18 Range/Units 06:35 Sodium 139 (137-145) mmol/L Potassium 4.4 (3.5-5.1) mmol/L Chloride 107 (98-107) mmol/L Carbon Dioxide 25 (22-30) mmol/L BUN 14 (7-17) mg/dL Creatinine 0.81 (0.52-1.04) mg/dL Glucose 100 H (74-99) mg/dL Calcium 9.5 (8.4-10.2) mg/dL AST 23 (14-36) U/L ALT 22 (9-52) U/L Alkaline Phosphatase 73 (38-126) U/L Total Protein 7.1 (6.3-8.2) g/dL Albumin 4.1 (3.5-5.0) g/dL Calcium panel 01/24/18 Range/Units 06:35 Calcium 9.5 (8.4-10.2) mg/dL Albumin 4.1 (3.5-5.0) g/dL Pituitary panel 01/24/18 Range/Units 06:35 Sodium 139 (137-145) mmol/L Potassium 4.4 (3.5-5.1) mmol/L Chloride 107 (98-107) mmol/L Carbon Dioxide 25 (22-30) mmol/L BUN 14 (7-17) mg/dL Creatinine 0.81 (0.52-1.04) mg/dL Glucose 100 H (74-99) mg/dL Calcium 9.5 (8.4-10.2) mg/dL Adrenal panel 01/24/18 Range/Units 06:35 Sodium 139 (137-145) mmol/L Potassium 4.4 (3.5-5.1) mmol/L Chloride 107 (98-107) mmol/L Carbon Dioxide 25 (22-30) mmol/L BUN 14 (7-17) mg/dL Creatinine 0.81 (0.52-1.04) mg/dL Glucose 100 H (74-99) mg/dL Calcium 9.5 (8.4-10.2) mg/dL Total Bilirubin 0.8 (0.2-1.3) mg/dL AST 23 (14-36) U/L ALT 22 (9-52) U/L Alkaline Phosphatase 73 (38-126) U/L Total Protein 7.1 (6.3-8.2) g/dL Albumin 4.1 (3.5-5.0) g/dL - Imaging Additional studies: Heart catheterization films reviewed Assessment and Plan (1) Coronary artery disease Current Visit: Yes Status: Chronic Code(s): I25.10 - ATHSCL HEART DISEASE OF [place] CORONARY ARTERY W/O ANG PCTRS SNOMED Code(s): 59789745 (2) Hyperlipidemia Current Visit: Yes Status: Chronic Code(s): E78.5 - HYPERLIPIDEMIA, UNSPECIFIED SNOMED Code(s): 11485466 (3) Asthma Current Visit: Yes Status: Chronic Code(s): J45.909 - UNSPECIFIED ASTHMA, UNCOMPLICATED SNOMED Code(s): 904947449 (4) History of hypertension Current Visit: Yes Status: Chronic Code(s): Z86.79 - PERSONAL HISTORY OF OTHER DISEASES OF THE CIRCULATORY SYSTEM SNOMED Code(s): 617080200 (5) Chest pain Current Visit: Yes Status: Acute Code(s): R07.9 - CHEST PAIN, UNSPECIFIED SNOMED Code(s): 08259954 Plan: The patient was seen and examined with Dr. Beavers at the bedside in the observation unit. Chart/diagnostics were reviewed. Heart catheterization films were reviewed. The usual perioperative course of coronary artery bypass graft surgery was explained in detail to the patient and her family, risks and benefits were discussed, and all questions were answered. We recommend aspirin , statin, beta elias therapy. We offered the patient open heart surgery versus high risk stenting, our recommendation is for surgery. Patient is agreeable to surgery. Will obtain preoperative testing then patient may be discharged in the morning to return for coronary artery bypass grafting. This was discussed with Dr. Elizabeth. Thank you Dr. Elizabeth for this consult. We look forward to working with you the care of your patient. Time with Patient: Greater than 30
[2018-01-24 19:14] LABS: Appearance,Urine Clear (Clear); Bilirubin,Urine Negative (Negative); Blood,Urine Negative (Negative); Color,Urine Colorless; Glucose,Urine (UA) Negative (Negative); Ketones,Urine Negative (Negative); Leukocyte Esterase,Urine Negative (Negative); Nitrite,Urine Negative (Negative); Protein,Urine Negative (Negative); Specific Gravity,Urine 1.008 (1.001-1.035); Urobilinogen,Urine <2.0 mg/dL (<2.0)
--- NOTE | 2018-01-24 21:06 | US ---
EXAMINATION TYPE: US carotid duplex BILAT DATE OF EXAM: 01/24/2018 COMPARISON: NONE CLINICAL HISTORY: preop cabg. Pre coronary artery surgery evaluation. EXAM MEASUREMENTS: RIGHT: Peak Systolic Velocity (PSV) cm/sec ----- Right CCA: 75.4 ----- Right ICA: 64.2 ----- Right ECA: 53.7 ICA/CCA ratio: 0.9 RIGHT: End Diastole cm/sec ----- Right CCA: 24.8 ----- Right ICA: 31.9 ----- Right ECA: 11.9 LEFT: Peak Systolic Velocity (PSV) cm/sec ----- Left CCA: 72.9 ----- Left ICA: 69.5 ----- Left ECA: 61.4 ICA/CCA ratio: 1.0 LEFT: End Diastole cm/sec ----- Left CCA: 28.2 ----- Left ICA: 15.6 ----- Left ECA: 14.4 VERTEBRALS (direction of flow): Right Vertebral: Antegrade Left Vertebral: Antegrade Rhythm: Normal Very mild intimal wall thickening is noted at bilateral carotid bifurcation , and PSV is wnl bilatera lly. IMPRESSION: There is antegrade flow in the vertebral arteries. The images and measurements suggest l ess than 25% stenosis in both internal carotid arteries. Criteria for Assigning % of Stenosis / Diameter reduction (Estimation based on the indirect measurements of the internal carotid artery velocities (ICA PSV). 1. Normal (no stenosis)=ICA PSV < 125 cm/s: ratio < 2.0: ICA EDV<40 cm/s. 2. Less than 50% stenosis=ICA PSV < 125 cm/s: ratio < 2.0: ICA EDV<40 cm/s. 3. 50 to 69% stenosis=ICA PSV of 125 to 230 cm/s: ration 2.0 ? 4.0: ICA EDV 40-100 cm/s. 4. Greater than 70% stenosis to near occlusion= ICA PSV > 230 cm/s: ratio > 4.0: ICA EDV > 100 cm/s. 5. Near occlusion= ICA PSV velocities may be low or undetectable: variable ratio and ICA EDV. 6. Total occlusion=unable to detect flow.
[2018-01-24] MEDS: MUPIROCIN 2% OINT 22 GM TUBE NASAL SCH (22:08)
[2018-01-25 03:47] LABS: Hemoglobin A1C 5.8 % (4.0-6.0)
[2018-01-25 07:11] LABS: Basophils % (A) 1 %; Eosinophils # (A) 0.2 k/uL (0-0.7); Eosinophils % (A) 2 %; HCT 48.9 % (34.0-46.0); Lymphocytes # (A) 1.7 k/uL (1.0-4.8); Lymphocytes % (A) 27 %; MCH 30.9 pg (25.0-35.0); MCHC 32.7 g/dL (31.0-37.0); MCV 94.5 fL (80.0-100.0); Mean Platelet Volume 7.3; Monocytes # (A) 0.5 k/uL (0-1.0); Monocytes % (A) 7 %; Neutrophils # (A) 3.8 k/uL (1.3-7.7); Neutrophils % (A) 60 %; Platelet Count 249 k/uL (150-450); RBC 5.18 m/uL (3.80-5.40); RDW 12.7 % (11.5-15.5); WBC 6.3 k/uL (3.8-10.6)
[2018-01-25 07:19] LABS: INR 0.9 (<1.2); Partial Thromboplastin Time 24.9 sec (22.0-30.0); Prothrombin Time 10.1 sec (9.0-12.0)
[2018-01-25 07:22] LABS: ALT 25 U/L (9-52); AST 24 U/L (14-36); Albumin 4.2 g/dL (3.5-5.0); Alkaline Phosphatase 79 U/L (38-126); Anion Gap 8 mmol/L; Blood Urea Nitrogen 13 mg/dL (7-17); Calcium 9.7 mg/dL (8.4-10.2); Carbon Dioxide 27 mmol/L (22-30); Chloride 107 mmol/L (98-107); Glucose 98 mg/dL (74-99); Potassium 4.5 mmol/L (3.5-5.1); Sodium 142 mmol/L (137-145); Total Bilirubin 0.7 mg/dL (0.2-1.3); Total Protein 7.4 g/dL (6.3-8.2)
[2018-01-25 08:07] VITALS: BP 127/88; PULSE 70; RESP 16; TEMP 97.9
[2018-01-25] MEDS: MUPIROCIN 2% OINT 22 GM TUBE NASAL SCH (08:09)
[2018-01-25] MEDS: METOPROLOL TARTRATE 25 MG TAB PO SCH (08:09)
[2018-01-25] MEDS: amLODIPine 5 MG TAB PO SCH (08:09)
[2018-01-25] MEDS: LORATADINE 10 MG TAB PO SCH (08:10)
--- NOTE | 2018-01-25 08:20 | PN ---
PROGRESS NOTE Mrs. Leyva is a 52-year-old female with no prior documented history of coronary disease who presented with symptoms of chest discomfort, underwent a stress test that showed evidence of inducible ischemia, underwent cardiac catheterization that revealed severely calcified right diagonal branch and a calcified LAD with significant stenosis in the proximal segment. The patient was offered both options of coronary angioplasty and complex stenting versus coronary bypass grafting. She was seen by Dr. Beavers yesterday. The patient has elected to proceed with coronary artery bypass grafting with ARMSTRONG to the LAD and to the diagonal branch. She is doing well this morning. She denies any chest pain. Her breathing has been stable. She denies any dizziness or palpitation. She continues to be on aspirin once a day, amlodipine 5 mg daily, Lipitor 4 mg daily, metoprolol tartrate 25 mg twice a day. PHYSICAL EXAMINATION: Blood pressure 115/70 with a heart rate in the 60s. LUNGS: Clear. HEART: Regular rate and rhythm, S1, S2. No S3. No rub. ABDOMEN: Soft nontender. EXTREMITIES: No edema. Right radial pulse intact. Carotid duplex scan revealed no evidence of high-grade stenosis. LAB DATA: BUN and creatinine of 13 and 0.75. Hemoglobin of 16. IMPRESSION: 1. Symptoms of unstable angina with significant obstructive disease involving heavily calcified ostial diagonal branch and LAD proximally. 2. Hypertension. 3. Hyperlipidemia. RECOMMENDATION: Patient will be discharged home today and will be readmitted to undergo surgery next week. The options were discussed with the patient in detail and she has full understanding and agreement. MMODL / DIOMEDESN: [id number] /
[2018-01-25] MEDS ORDERED: ATORVASTATIN 40 MG TAB PO SCH (09:00)
[2018-01-25] MEDS ORDERED: ASPIRIN 81 MG PO SCH (09:00)
[2018-01-25] MEDS: FLUTICASONE 110 MCG INHALER INHALATION SCH ×2 (09:38→09:40)
--- NOTE | 2018-01-25 10:40 | P.PN ---
Subjective Progress Note Date: 01/25/18 This is a 52-year-old female patient who presented to the emergency room with complaints of chest pain. Patient states she was at work when she started to experience chest tightness in her chest that radiated to her left jaw patient's discomfort lasted approximately 20 minutes and then improved. Patient denies any nausea vomiting or diaphoresis with chest pain episode. Patient does admit to being under increased stress with her parents. Patient does have a past medical history for asthma orthopedic surgery and drinks approximately 2-3 times a day. Patient denies any nicotine dependence. Patient denies any significant family cardiac history. X-ray completed showing no acute pulmonary process. EKG completed showing normal sinus rhythm. Normal EKG. Initial troponin negative. Cardiology services have been consulted. This time patient denies any chest pain or shortness breath. Patient denies nausea vomiting or diarrhea. Patient denies any urinary burning or frequency. On 01/25/2018 patient was seen and examined she was evaluated by cardiovascular surgery and plan is to discharge patient to home proceed with venous and arterial mapping as outpatient, and readmission on for coronary artery bypass graft surgery. Patient is clinically stable at this time without any chest pain or shortness of breath, and understand condition and treatment plan. Objective - Vital Signs Vital signs: Vital Signs Temp 97.9 F 01/25/18 08:00 Pulse 70 01/25/18 08:00 Resp 16 01/25/18 08:00 BP 127/88 01/25/18 08:00 Pulse Ox 98 01/25/18 08:00 Intake & Output 01/24/18 01/25/18 01/25/18 18:59 06:59 18:59 Intake Total 936 Balance 936 Weight 81.7 kg Intake: IV 100 Oral 836 Other: Voiding Method Toilet Toilet Toilet # Voids 1 - Labs CBC & Chem 7: 01/25/18 06:31 01/25/18 06:31 Labs: Abnormal Lab Results - Last 24 Hours (Table) 01/25/18 01/25/18 Range/Units 06:31 06:31 Hct 48.9 H (34.0-46.0) % Crossmatch See Detail Microbiology - Last 24 Hours (Table) 01/24/18 18:06 Nasal Screen MRSA/MSSA - Preliminary Nasal Swab 01/24/18 18:02 Urine Culture - Preliminary Urine,Voided Assessment and Plan Plan: patient underwent cardiac catheterization and was found to have heavily calcified proximal left anterior descending artery and diagonal branch. Critical stenosis involving the takeoff of the diagonal branch as well as the proximal left anterior descending artery and diagonal branch. Critical stenosis involving the takeoff of the diagonal branch as well as proximal left anterior descending artery. Mild disease in the right coronary artery. Normal left ventricle size and systolic function. Awaiting cardiothoracic input prior to discharge to discuss options of high risk complex angioplasty and stenting of the LAD diagonal branch bifurcation versus coronary artery bypass grafting. This time patient is resting comfortably in bed. Patient denies chest pain or shortness of breath. Patient denies nausea vomiting or diarrhea. Patient denies any urinary burning or frequency. Patient was seen by cardiothoracic surgery and plan is for discharge today and readmission on for coronary artery bypass graft surgery.
--- NOTE | 2018-01-25 13:25 | P.PN ---
Subjective Progress Note Date: 01/25/18 Principal diagnosis: Coronary artery disease. Previous medical history of remote hypertension, asthma, hyperlipidemia, daily alcohol use of 2-3 drinks per day. Patient sitting up in bed in no acute distress. Denied any pain or shortness of breath. Anxious to go home. Preoperative testing completed yesterday. Objective - Vital Signs Vital signs: Vital Signs Temp 97.9 F 01/25/18 08:00 Pulse 70 01/25/18 08:00 Resp 16 01/25/18 08:00 BP 127/88 01/25/18 08:00 Pulse Ox 98 01/25/18 08:00 Intake & Output 01/24/18 01/25/18 01/25/18 18:59 06:59 18:59 Intake Total 936 Balance 936 Weight 81.7 kg Intake: IV 100 Oral 836 Other: Voiding Method Toilet Toilet Toilet # Voids 1 - Constitutional General appearance: Present: cooperative, no acute distress - Respiratory Details: Lungs sounds clear bilaterally. Respirations even, nonlabored. Was on room air with oxygen saturation 99%. - Cardiovascular Details: S1, S2 present. Regular rate and rhythm, sinus rhythm on telemetry. Palpable peripheral pulses bilaterally. No edema present. No calf pain or tenderness noted. - Gastrointestinal Gastrointestinal Comment(s): Abdomen soft, nontender, nondistended. Active bowel sounds 4 quadrants. Tolerating diet. - Genitourinary Genitourinary Comment(s): Voiding clear, yellow urine. - Integumentary Integumentary Comment(s): Skin is warm and dry with evidence of good perfusion. - Neurologic Neurologic: Present: CNII-XII intact - Musculoskeletal Musculoskeletal: Present: gait normal, strength equal bilaterally - Psychiatric Psychiatric: Present: A&O x's 3, appropriate affect, intact judgment & insight - Allied health notes Allied health notes reviewed: nursing - Labs CBC & Chem 7: 01/25/18 06:31 01/25/18 06:31 Labs: Abnormal Lab Results - Last 24 Hours (Table) 01/25/18 01/25/18 Range/Units 06:31 06:31 Hct 48.9 H (34.0-46.0) % Crossmatch See Detail Microbiology - Last 24 Hours (Table) 01/24/18 18:06 Nasal Screen MRSA/MSSA - Preliminary Nasal Swab 01/24/18 18:02 Urine Culture - Preliminary Urine,Voided - Imaging and Cardiology Chest x-ray: report reviewed, image reviewed Assessment and Plan (1) Coronary artery disease Status: Chronic Code(s): I25.10 - ATHSCL HEART DISEASE OF [place] CORONARY ARTERY W/O ANG PCTRS SNOMED Code(s): 76854371 (2) Hyperlipidemia Status: Chronic Code(s): E78.5 - HYPERLIPIDEMIA, UNSPECIFIED SNOMED Code(s) : 99340907 (3) Asthma Status: Chronic Code(s): J45.909 - UNSPECIFIED ASTHMA, UNCOMPLICATED SNOMED Code(s): 730518482 (4) History of hypertension Status: Chronic Code(s): Z86.79 - PERSONAL HISTORY OF OTHER DISEASES OF THE CIRCULATORY SYSTEM SNOMED Code(s): 982138689 (5) Chest pain Status: Acute Code(s): R07.9 - CHEST PAIN, UNSPECIFIED SNOMED Code(s): 12915617 Plan: 1. Continue aspirin, statin, beta elias therapy. 2. Encourage incentive spirometry 10 times every hour while awake. 3. Preoperative teaching continues. 4. At this time plan is for off pump coronary artery bypass graft surgery on January [address] Beavers. This was discussed with the patient and Dr. Elizabeth and all are in agreement. 5. Patient may be discharged home from our standpoint to return to the hospital on January 30 for surgery. Time with Patient: Greater than 30
[2018-01-25 18:03] LABS: Hepatitis A Antibody IgM Non-Reactive (Non-Reactive); Hepatitis B Core IgM Non-Reactive (Non-Reactive)
--- NOTE | 2018-01-29 09:19 | P.VSCSTY ---
Greater Saphenous Vein Mapping This is bilateral lower extremity greater saphenous vein mapping. Date of service 01/24/2018 Vein quality and ultrasound appearance there is some intimal thickening seen in both greater saphenous veins. Vein size groin right 4.8 x 4.2 groin left 5.8 x 5.1 High thigh right 3.1 x 3.1 high thigh left 3.1 x 3.0 Mid thigh right 2.3 x 2.5 mid thigh left 3.1 x 2.9 Above-knee right 3.0 x 2.0 above-knee left 2.8 x 2.8 Below knee right 2.1 x 1.5 below-knee left 2.4 x 2.0 Mid calf right to small to visualize mid calf left 2.5 x 2.4 Ankle right 2 small to visualize ankle left 2.0 x 1.7 Impression there is wall thickening in both greater saphenous veins. The vein on the right below the knee is small and probably not usable. Clinical correlation strongly recommended to assess usability of this vein..
--- NOTE | 2018-01-29 09:23 | P.ARTDOP ---
Arterial Doppler Bilateral radial artery studies: Date of study: 03/27/2017 Reason for study: Preop CABG. This is a limited study as a catheterization was performed on the right radial today. The patient also had coldness and blanching in fingers of both hands. Doppler assessment and physiologic plethysmography readings were not done. Right radial measures between 2.7 x 2.8 and 3.8 x 3.8 mm Left radial measures between 2.2 x 1.8 and 2.1 x 2.0 mm Both radial arteries are the size that could be used as conduit. However, no physiologic measurement to assess adequate collateralization was performed. Would consider repeating the study with plethysmography and radial artery compression to assess adequate collateralization for radial artery harvest.
== END 2018-01-25 11:06 | disposition home or self-care (01) ==
LOC: EC 12:36 → 1SOBS 15:12
PROVIDERS: ADMIT Internal Medicine; ATTEND Internal Medicine
DX: I25.10 Atherosclerotic heart disease of native coronary artery without angina pectoris (principal); I25.84 Coronary atherosclerosis due to calcified coronary lesion; J45.909 Unspecified asthma, uncomplicated; E78.5 Hyperlipidemia, unspecified; M19.90 Unspecified osteoarthritis, unspecified site; Z86.79 Personal history of other diseases of the circulatory system; Z88.1 Allergy status to other antibiotic agents; Z88.0 Allergy status to penicillin; Z82.3 Family history of stroke; Z79.51 Long term (current) use of inhaled steroids; Z79.899 Other long term (current) drug therapy; Z79.82 Long term (current) use of aspirin
CPT/HCPCS: 99285; 36415; 94640 ×3; 94760; 94150; 93005; 93306; 93351; 93458; 80061; 80053 ×4; 80074; 84443; 82550 ×2; 82553 ×2; 83735 ×2; 84484 ×2; 85025 ×4; 85610 ×2; 85730 ×2; 81003; 87070; 87086; 83036; 71046; 93930; 93970; 93880; G0378 ×4; C1894 ×2; C1769; J2001; J2250; J3010; J1644; Q9967; 86850; 86900; 86901; 86920

== ENCOUNTER 2018-01-30 06:52 | Inpatient (IN) | payer BC ==
[~2018-01-30 06:52] MED LIST changes: +ALBUMIN HUMAN 25% 50 ML IV ONE; +ASPIRIN 325 MG TAB PO ONE; +ATORVASTATIN 10 MG TAB PO ONE; +CALCIUM CHLORIDE 100 MG/ML 10 ML SYRINGE IV ONE; +CARDIOPLEGIC SOLN (K+ 16 MEQ/L 1,000 ML with SODIUM BICARB (1 MEQ/ML) 20 ML, LIDOCAINE ... PERFUSION ONE; +CHLORHEXIDINE GLUCONATE 15 ML CUP MUCOUS MEM ONE; +CLEVIDIPINE BUTYRATE 25 MG in EMPTY BAG 1 BAG IV ONE; +DILTIAZEM 50 MG in SODIUM CHLORIDE 0.9% 40 ML IV ONE; +HEPARIN SODIUM 1,000 UN/ML (10ML VL) IV ONE; +HEPARIN SODIUM,PORCINE 5,000 UNIT in SODIUM CHLORIDE 0.9% 500 ML 500 ML IV ONE; +INSULIN REGULAR 100 UNIT in SODIUM CHLORIDE 0.9% 100 ML IV ONE; +LACTATED RINGERS 1,000 ML IV ONE; +MAGNESIUM SULFATE MG 500 MG/ML IV ONE; +MANNITOL 25% 12.5 GM/50 ML VIAL IV ONE; +METOPROLOL TARTRATE 12.5 MG TAB PO ONE; +MIDAZOLAM (PF) 2 MG/2 ML VIAL IV PRN; +NITROGLYCERIN-D5W PMX 25 MG/250 ML BTL IV ONE; +NITROGLYCERIN-D5W PMX 50 MG in DEXTROSE/WATER 1 250ML.BAG IV ONE; +NOREPINEPHRINE 4 MG in SODIUM CHLORIDE 0.9% 250 ML IV ONE; +PAPAVERINE 360 MG in SODIUM CHLORIDE 0.9% 90 ML IV ONE; +PHENYLEPHRINE 40 MG in SODIUM CHLORIDE 0.9% 250 ML IV ONE; +PHENYLEPHRINE-0.9% NACL SYG 1 MG/10 ML SYRINGE IV ONE; +PROPOFOL 1,000 MG/100 ML VIAL IV ONE; +PROTAMINE SULFATE 10 MG/ML 25 ML VIAL IV ONE; +PROTAMINE SULFATE 250 MG in EMPTY BAG 1 BAG IV ONE; +SODIUM BICARB 8.4% 50 ML SYR (1 MEQ/ML) IV ONE; +SODIUM CHLORIDE 0.9% 1,000 ML IV ONE; +TRANEXAMIC ACID 2,000 MG in SODIUM CHLORIDE 0.9% 180 ML IV ONE; +ceFAZolin 1,000 MG in SODIUM CHLORIDE 0.9% IRRIGATIO 1,000 ML IRRIGATION ONE; +ceFAZolin 2,000 MG in SODIUM CHLORIDE 0.9% 30 ML IVPB ONE; +ceFAZolin IN SWFI 2 GM/20 ML SYRINGE IVP ONE; +fentaNYL (PF) 50 MCG/ML 2 ML AMP IVP PRN
[2018-01-30] MEDS ORDERED: PROPOFOL 10 MG/ML 20 ML VIAL IV ONE (09:21)
[2018-01-30] MEDS ORDERED: fentaNYL (PF) 50 MCG/ML 2 ML AMP ONE (09:21)
[2018-01-30] MEDS ORDERED: MAGNESIUM SULFATE 4 MEQ/ML 10ML VIAL ONE (09:21)
[2018-01-30] MEDS ORDERED: VECURONIUM 10 MG VIAL IV ONE (09:21)
[2018-01-30] MEDS ORDERED: PROTAMINE SULFATE 10 MG/ML 5 ML VIAL IV ONE (09:21)
[2018-01-30] MEDS ORDERED: MIDAZOLAM 2 MG/2 ML VIAL ONE (09:21)
[2018-01-30] MEDS ORDERED: POTASSIUM CHLORIDE 2 MEQ/ML 20 ML VIAL ONE (09:21)
[2018-01-30] MEDS ORDERED: LACTATED RINGERS 1,000 ML BAG IV ONE (09:21)
[2018-01-30] MEDS ORDERED: HEPARIN SODIUM,PORCINE 10,000 UNIT/ML 1 ML VIAL ONE (09:21)
[2018-01-30] MEDS ORDERED: ceFAZolin 1,000 MG VIAL ONE (09:21)
[2018-01-30] MEDS ORDERED: SODIUM BICARB 8.4% 50 ML SYR (1 MEQ/ML) ONE (09:21)
[2018-01-30 10:05] LABS: ABG HCO3 24 mmol/L (21-25); ABG PCO2 34 mmHg (35-45); ABG PH 7.45 (7.35-7.45); ABG Potassium Whole Blood 3.8 mmol/L (3.4-4.5); ABG Sodium Whole Blood 139 mmol/L (135-146); ABG TCO2 25 mmol/L (19-24)
[2018-01-30 11:14] LABS: ABG Base Excess -0.1 mmol/L; ABG HCO3 24 mmol/L (21-25); ABG Oxygen Saturation 99.8 % (94-97); ABG PCO2 35 mmHg (35-45); ABG PH 7.44 (7.35-7.45); ABG PO2 268 mmHg (83-108); ABG Potassium Whole Blood 4.5 mmol/L (3.4-4.5); ABG Sodium Whole Blood 137 mmol/L (135-146); ABG TCO2 25 mmol/L (19-24)
[2018-01-30 11:58] LABS: ABG HCO3 23 mmol/L (21-25); ABG Oxygen Saturation 99.8 % (94-97); ABG PCO2 35 mmHg (35-45); ABG PH 7.42 (7.35-7.45); ABG PO2 304 mmHg (83-108); ABG Potassium Whole Blood 4.3 mmol/L (3.4-4.5); ABG Sodium Whole Blood 138 mmol/L (135-146); ABG TCO2 24 mmol/L (19-24)
[2018-01-30] MEDS ORDERED: POTASSIUM CHLORIDE 20 MEQ in WATER FOR INJECTION 1 100ML.BAG IVPB STA (12:13)
[2018-01-30] MEDS ORDERED: ALBUMIN HUMAN 5% 250 ML in EMPTY BAG 1 BAG IVPB STA (12:14)
[2018-01-30 12:21] LABS: ABG Base Excess -2.3 mmol/L; ABG HCO3 22 mmol/L (21-25); ABG Oxygen Saturation 99.8 % (94-97); ABG PCO2 37 mmHg (35-45); ABG PH 7.39 (7.35-7.45); ABG PO2 246 mmHg (83-108); ABG Potassium Whole Blood 4.1 mmol/L (3.4-4.5); ABG Sodium Whole Blood 139 mmol/L (135-146); ABG TCO2 24 mmol/L (19-24)
[2018-01-30 12:26] LABS: ABG PO2 >420 mmHg (83-108)
[2018-01-30] MEDS ORDERED: ALBUMIN HUMAN 5% 500 ML IVPB ONE ×3 (12:30)
[2018-01-30] MEDS ORDERED: DEXTROSE 5% IN WATER 100 ML with AMIODARONE 150 MG IV PRN (12:58)
[2018-01-30] MEDS ORDERED: Potassium Replacement Protocol 1 EACH MISC MISCELLANE PRN (12:58)
[2018-01-30] MEDS ORDERED: CALCIUM CHLORIDE 1,000 MG in SODIUM CHLORIDE 0.9% 100 ML IV PRN (12:58)
[2018-01-30] MEDS ORDERED: AMIODARONE 450 MG in DEXTROSE 5% IN WATER 250 ML IV PRN ×2 (12:58)
[2018-01-30] MEDS ORDERED: PROPOFOL 1,000 MG in EMPTY BAG 1 BAG IV SCH (12:58)
[2018-01-30] MEDS ORDERED: IPRATROPIUM-ALBUTEROL 3 ML NEB INHALATION PRN (12:58)
[2018-01-30] MEDS ORDERED: ALBUMIN HUMAN 5% 250 ML in EMPTY BAG 1 BAG IVPB PRN (12:58)
[2018-01-30] MEDS ORDERED: Magnesium Replacement Protocol 1 EACH MISC MISCELLANE PRN (12:58)
[2018-01-30] MEDS ORDERED: NITROGLYCERIN-D5W PMX 50 MG in DEXTROSE/WATER 1 250ML.BAG IV SCH (12:58)
[2018-01-30] MEDS ORDERED: ONDANSETRON 4 MG/2 ML VIAL IVP PRN (12:58)
[2018-01-30] MEDS ORDERED: METOCLOPRAMIDE 5 MG/ML 2 ML VIAL IVP PRN (12:58)
[2018-01-30] MEDS ORDERED: BENZOCAINE/MENTHOL LOZENG 1 EACH LOZENGE MUCOUS MEM PRN (12:58)
[2018-01-30] MEDS ORDERED: Phosphorus Replacement Protoco 1 EACH MISC MISCELLANE PRN (12:58)
[2018-01-30] MEDS ORDERED: INSULIN REGULAR 100 UNIT in SODIUM CHLORIDE 0.9% 100 ML IV SCH (13:00)
--- NOTE | 2018-01-30 13:08 | P.OP ---
Date of Procedure: 01/30/18 Preoperative Diagnosis: Symptomatic coronary artery disease Postoperative Diagnosis: Same Procedure(s) Performed: Off-pump CABG 2 with left internal mammary artery graft to LAD and jump Y left internal mammary artery graft to first diagonal Anesthesia: JEFF Surgeon: Jose Beavers Finance Advisor #1: Dante Douglas Finance Advisor #2: Luigi Gr Estimated Blood Loss (ml): 500 IV fluids (ml): 2,000 Urine output (ml): 800 Pathology: none sent Condition: stable Disposition: ICU Indications for Procedure: 52-year-old female presents with anginal symptomatology stress test was positive for anterolateral ischemia Showed tight blockage first diagonal and left anterior descending coronary arteries coronary bypass grafting was requested Operative Findings: MCKAYLA demonstrated normal ventricular function with normal valvular function. There was a good left internal mammary artery however was somewhat small distally. For this reason it was decided to use more proximal portion for the LAD and use the distal portion as a jump graft to the first diagonal branch. The LAD was a good vessel with a 2 mm lumen [id number] side wall plaque. This appeared intramyocardially for much of the mid anterior wall and then resurfaced near the apex. It was grafted fairly proximally just as it dove into the myocardium. The diagonal was a 1.5 mm good vessel. Description of Procedure: The patient was brought to the operating room, placed supine on the operating table, anesthetized and intubated. [place] catheter had been placed via the right internal jugular approach. Simpson and nasogastric tube were placed. MCKAYLA probe was placed. The anterior torso or lower extremities were sterilely prepped and draped in standard fashion. Midline sternotomy was performed. Left hemisternum was retracted upwards and the left internal mammary artery harvested on a vascularized pedicle, left intact on its origin clavian and divided distally. Left pleural space was drained with 32-[place] chest tube. Midline pericardiotomy was performed in standard sternal retractor was placed. The heart was exposed pericardial sutures. LAD and diagonal were noted with findings as noted above. The ARMSTRONG was prepared and cut to appropriate length to reach the LAD after dissecting out the LAD and identifying the area for the anastomosis. Patient was systemically heparinized a CTs were maintained greater than 250 during grafting. The distal portion of the ARMSTRONG was prepared and anastomosed to the side of the left internal mammary artery about 2 cm proximal to the end of the ARMSTRONG. Flow was good in both limbs of the resulting Y graft. The LAD was opened and blood flow control with a 2 mm flow through. The end of the [place] ARMSTRONG was anastomosed in end-to-side fashion with running 8 -0 Prolene suture. On completion anastomosis flow through was removed effectively probing the proximal distal portion of the anastomosis. Suture was tied with good result and hemostasis. Inflow was opened to the anastomosis and it was noted to fill well and lay well. The ABHINAV pedicle was tacked surrounding epicardium with 6-0 silk sutures. Next the right branch graft was prepared distally and preparations were made for the anastomosis to the diagonal. The diagonal was stabilized and opened it was a 5 mm vessel. Blood flow was controlled with a 1.5 mm flow through the anastomosis constructed with running 8 -0 Prolene suture. On completion the anastomosis the flow through was removed effectively probing the proximal portion anastomosis. Suture was tied with good result and hemostasis and the inflow open. Graft was noted to lay well, lengths were good in the myrick of the diagonal filled well. Was now reversed with protamine and good hemostasis maintained throughout. The stent was drained with 36-[place] chest tube. Mediastinum was irrigated with antibiotic solution the sternum closed with 8 sternal wires. Fascia was closed with 0 Ethibond. Subcutaneous and subcuticular layers were closed with layers of Vicryl suture. Dry sterile dressings were applied the patient was transferred to ICU in stable condition.
[2018-01-30] MEDS: LACTATED RINGERS 1,000 ML IV SCH (13:15)
[2018-01-30 13:33] LABS: Basophils % (A) 0 %; Eosinophils # (A) 0.1 k/uL (0-0.7); Eosinophils % (A) 2 %; HCT 31.7 % (34.0-46.0); Lymphocytes # (A) 1.3 k/uL (1.0-4.8); Lymphocytes % (A) 21 %; MCH 30.7 pg (25.0-35.0); MCHC 33.6 g/dL (31.0-37.0); MCV 91.3 fL (80.0-100.0); Mean Platelet Volume 7.8; Monocytes # (A) 0.3 k/uL (0-1.0); Monocytes % (A) 4 %; Neutrophils # (A) 4.6 k/uL (1.3-7.7); Neutrophils % (A) 72 %; Platelet Count 158 k/uL (150-450); RBC 3.47 m/uL (3.80-5.40); RDW 12.3 % (11.5-15.5); WBC 6.4 k/uL (3.8-10.6)
[2018-01-30 13:39] LABS: HGB 10.7 gm/dL (11.4-16.0); Ionized Calcium 4.6 mg/dL (4.5-5.3)
[2018-01-30 13:41] LABS: INR 1.2 (<1.2); Partial Thromboplastin Time 32.4 sec (22.0-30.0); Prothrombin Time 12.6 sec (9.0-12.0)
[2018-01-30 13:47] LABS: ABG Base Excess -0.3 mmol/L; ABG HCO3 24 mmol/L (21-25); ABG PCO2 37 mmHg (35-45); ABG PH 7.42 (7.35-7.45); ABG PO2 369 mmHg (83-108); ABG TCO2 25 mmol/L (19-24)
[2018-01-30 13:49] LABS: Glucose,Whole Blood 87 mg/dL (75-99)
[2018-01-30 13:55] LABS: ALT 26 U/L (9-52); AST 15 U/L (14-36); Albumin 3.1 g/dL (3.5-5.0); Alkaline Phosphatase 40 U/L (38-126); Anion Gap 6 mmol/L; Blood Urea Nitrogen 12 mg/dL (7-17); Carbon Dioxide 22 mmol/L (22-30); Chloride 110 mmol/L (98-107); Glucose 93 mg/dL (74-99); Potassium 4.3 mmol/L (3.5-5.1); Sodium 138 mmol/L (137-145); Total Bilirubin 0.5 mg/dL (0.2-1.3); Total Protein 5.1 g/dL (6.3-8.2)
--- NOTE | 2018-01-30 14:09 | P.CONS ---
History of Present Illness - Reason for Consult Consult date: 01/30/18 Medical management Requesting physician: Jose Beavers - Chief Complaint Status post CABG 2 vessels - History of Present Illness This is a 52-year-old female with a known past medical history of symptomatic coronary disease, hypertension, asthma, hyperlipidemia, osteoarthritis and daily alcohol use of 2-3 drinks per day. Patient was hospitalized January 24 for chest pain and at that time she was found to have a positive stress test underwent heart catheterization which demonstrated ostial diagonal stenosis of 99%, proximal LAD stenosis after the diagonal of 70% and mid RCA stenosis of 20- 30%. she was evaluated by the cardiothoracic surgeon and decided to proceed with coronary artery bypass grafting. Patient is postop day #0 status post off- pump CABG 2. Patient currently in the ICU intubated and sedated. She is starting to wake up. She has 2 chest tubes. No evidence of distress. Vitals are stable. We have been consulted for medical management. Review of Systems Unable to obtain. Patient currently intubated and sedated Past Medical History Past Medical History: Asthma, Hyperlipidemia, Hypertension, Osteoarthritis (OA) , Skin Disorder Additional Past Medical History / Comment(s): diverticulosis, eczema, migraines , shingles x2 last time was 5-7 years ago. in past was on bp meds but took her off it several years ago History of Any Multi-Drug Resistant Organisms: None Reported Past Surgical History: Heart Catheterization, Hernia Repair, Orthopedic Surgery , Tonsillectomy Additional Past Surgical History / Comment(s): ORIF Right ankle, colonoscopy, "hernia repair as infant" Past Anesthesia/Blood Transfusion Reactions: No Reported Reaction Smoking Status: Never smoker - Past Family History Mother Family Medical History: CVA/TIA Additional Family Medical History / Comment(s): tia Father Additional Family Medical History / Comment(s): back sx Medications and Allergies Home Medications Medication Instructions Recorded Confirmed Type Fexofenadine HCl 180 mg PO DAILY 09/20/16 01/30/18 History Fluticasone Propionate [Flovent 2 puff INHALATION RT-DAILY 01/22/18 01/28/18 History Hfa 44 mcg] Aspirin 81 mg PO DAILY #30 chew 01/24/18 01/28/18 Rx Atorvastatin [Lipitor] 40 mg PO DAILY 30 Days #30 tab 12/14/18 12/20/18 Rx Metoprolol Tartrate [Lopressor] 25 mg PO BID 30 Days #60 tab 01/24/18 01/28/18 Rx amLODIPine [Norvasc] 5 mg PO DAILY 30 Days #30 tab 01/24/18 01/28/18 Rx Mupirocin 2% Oint [Bactroban 2% 1 applic NASAL BID 01/28/18 01/30/18 History Oint] Allergies Allergy/AdvReac Type Severity Reaction Status Date / Time amoxicillin AdvReac Rash/Hives Verified 01/29/18 08:58 cefaclor [From Ceclor] AdvReac Rash/Hives Verified 01/29/18 08:58 Physical Exam Vitals: Vital Signs Temp Pulse Resp BP BP Pulse Ox 01/30/18 07:33 97.9 F 70 16 130/88 135/93 100 Intake and Output 01/29/18 01/30/18 01/30/18 22:59 06:59 14:59 Intake Total 2 Output Total 700 Balance -698 Intake: IV 2 ACETAMINOPHEN IV (For NPO 0 ) 1,000 mg In Empty Bag 1 bag @ 400 mls/hr IVPB Q6HR [facility] Rx#:[id number] CO/CI 0 LR 0 Nitroglycerin-D5w Pmx 50 0 mg In Dextrose/Water 1 250ml.bag @ 5 MCG/MIN 1.5 mls/hr IV .Q24H [facility] Rx#: [id number] Pressure Bag 0 Output: Urine 300 Estimated Blood Loss 400 Other: Weight 78.5 kg Head normocephalic Neck supple Lungs clear to auscultation bilaterally no wheezing or crackles. [address] Heart regular rate and rhythm S1-S2, no rub or gallop Abdomen is soft nontender nondistended positive bowel sounds no hepatosplenomegaly Extremities no edema left leg Yahir wrap Neuro alert and orientated to 3 Results CBC & Chem 7: 01/30/18 13:17 Labs: Abnormal Lab Results - Last 24 Hours (Table) 01/30/18 01/30/18 01/30/18 Range/Units 10:03 11:13 11:57 RBC (3.80-5.40) m/uL Hgb (11.4-16.0) gm/dL Hct (34.0-46.0) % PT (9.0-12.0) sec INR (<1.2) APTT (22.0-30.0) sec ABG pCO2 34 L (35-45) mmHg ABG pO2 >420 H 268 H 304 H (83-108) mmHg ABG Total CO2 25 H 25 H (19-24) mmol/L ABG O2 Saturation 100.0 H 99.8 H 99.8 H (94-97) % ABG Ionized Calcium 4.4 L (4.5-5.3) mg/dL ABG Glucose 112 H 107 H (75-99) mg/dL Hemoglobin (11.4-16.0) gm/dL Arterial Blood Glucose 112 H 107 H (75-99) mg/dL 01/30/18 01/30/18 01/30/18 Range/Units 12:19 13:17 13:17 RBC 3.47 L (3.80-5.40) m/uL Hgb 10.7 L D (11.4-16.0) gm/dL Hct 31.7 L (34.0-46.0) % PT 12.6 H (9.0-12.0) sec INR 1.2 H (<1.2) APTT 32.4 H (22.0-30.0) sec ABG pCO2 (35-45) mmHg ABG pO2 246 H (83-108) mmHg ABG Total CO2 (19-24) mmol/L ABG O2 Saturation 99.8 H (94-97) % ABG Ionized Calcium 4.3 L (4.5-5.3) mg/dL ABG Glucose 103 H (75-99) mg/dL Hemoglobin 11.2 L (11.4-16.0) gm/dL Arterial Blood Glucose 103 H (75-99) mg/dL 01/30/18 Range/Units 13:44 RBC (3.80-5.40) m/uL Hgb (11.4-16.0) gm/dL Hct (34.0-46.0) % PT (9.0-12.0) sec INR (<1.2) APTT (22.0-30.0) sec ABG pCO2 (35-45) mmHg ABG pO2 369 H (83-108) mmHg ABG Total CO2 25 H (19-24) mmol/L ABG O2 Saturation 100.0 H (94-97) % ABG Ionized Calcium (4.5-5.3) mg/dL ABG Glucose (75-99) mg/dL Hemoglobin (11.4-16.0) gm/dL Arterial Blood Glucose (75-99) mg/dL Assessment and Plan Assessment: 1. Symptomatic coronary artery disease status post off-pump CABG 2 2. Essential hypertension 3. History of asthma 4. History of hyperlipidemia continue statin GI prophylaxis protonic and DVT prophylaxis subcu heparin Thank you for this consultation. We will continue to follow along during patient's hospitalization Time with Patient: Greater than 30 (Greater than 50% of the total time spent in counseling and coordination of care.I performed an examination of the patient and discussed their management with the physician Appraiser Auditor. I have reviewed the Physician Appraiser Auditor's notes and agree with the documented findings and plan of care)
--- NOTE | 2018-01-30 14:15 | XR ---
EXAMINATION TYPE: XR chest 1V portable DATE OF EXAM: 01/30/2018 HISTORY: Post Op CABG COMPARISON: 01/22/2018 TECHNIQUE: Single view of the chest is submitted. FINDINGS: Endotracheal tube, NG tube, SG catheter, mediastinal drains and chest tubes are appropriately placed. Post operative changes of CABG. Tiny biapical pneumothoraces. Scattered Pleural-parenchymal opacities may reflect atelectasis. The heart is not enlarged. IMPRESSION: 1. Post operative changes of CABG. Small biapical pneumothoraces.
[2018-01-30] MEDS: CLEVIDIPINE BUTYRATE 25 MG in EMPTY BAG 1 BAG IV SCH ×2 (14:20→23:08)
[2018-01-30 14:26] LABS: Glucose,Whole Blood 80 mg/dL (75-99)
[2018-01-30] MEDS: ceFAZolin IN SWFI 2 GM/20 ML SYRINGE IVP SCH ×2 (15:07→23:09)
[2018-01-30 15:28] LABS: Glucose,Whole Blood 135 mg/dL (75-99)
[2018-01-30] MEDS ORDERED: fentaNYL (PF) 50 MCG/ML 2 ML AMP IVP ONE (15:45)
[2018-01-30 16:13] LABS: ABG Base Excess -1.1 mmol/L; ABG HCO3 25 mmol/L (21-25); ABG Oxygen Saturation 97.6 % (94-97); ABG PCO2 46 mmHg (35-45); ABG PH 7.34 (7.35-7.45); ABG PO2 94 mmHg (83-108); ABG TCO2 26 mmol/L (19-24)
[2018-01-30 16:32] LABS: Glucose,Whole Blood 175 mg/dL (75-99)
[2018-01-30 16:41] LABS: Glucose,Whole Blood 156 mg/dL (75-99)
[2018-01-30] MEDS: IPRATROPIUM-ALBUTEROL 3 ML NEB INHALATION SCH ×4 (17:01→20:44)
[2018-01-30 17:12] LABS: Glucose,Whole Blood 161 mg/dL (75-99)
[2018-01-30] MEDS: ACETAMINOPHEN IV (For NPO) 1,000 MG in EMPTY BAG 1 BAG IVPB SCH ×2 (17:13→23:24)
[2018-01-30] MEDS: KETOROLAC 30 MG/ML 1 ML VIAL IVP SCH ×2 (17:14→23:08)
--- NOTE | 2018-01-30 17:16 | CONS ---
CONSULTATION DATE OF SERVICE: 01/30/2018 This is a pulmonary critical care consultation dated 01/30/2018. This is a 52-year-old female who sees Dr. Mota as a primary. She has a previous history of hypertension, chronic bronchial asthma, hyperlipidemia, daily alcohol use of 2-3 drinks per day. The patient apparently presented to the emergency room with chest pain and tightness. She had pain that radiated to the left jaw. She denied any shortness of breath, nausea, diaphoresis. Never had these symptoms before. EKG showed normal sinus rhythm. Troponins were drawn, were negative x3. She was admitted for observation and Cardiology was consulted. She had a stress echocardiogram that showed possible anterolateral wall ischemia. She had a heart catheterization, which demonstrated ostial diagonal stenosis of 99%, proximal LAD stenosis of 70% and mid RCA stenosis of 20-30 percent. The patient underwent a 2 vessel bypass today by Dr. Elizabeth. Postop day #0. I am asked to see the patient for a routine postop ventilator management/ICU management. PAST MEDICAL HISTORY: Noted as above. She has a history of hypertension, asthma, hyperlipidemia, and daily alcohol use. She also apparently has a history of osteoarthritis. Other history includes diverticulosis, eczema, migraine cephalgia and shingles. SURGICAL HISTORY: Includes hernia repair, some orthopedic procedures including right ankle surgery, tonsillectomy, and colonoscopy. SOCIAL HISTORY: Negative for tobacco use. Alcohol use as noted as above. No illicit drug use. FAMILY HISTORY: Positive for CVA. HOME MEDICATIONS: Include fexofenadine, which is Kay, Flovent inhaler, aspirin, atorvastatin, metoprolol, amlodipine. ALLERGIES: INCLUDE AMOXICILLIN AND CEFACLOR. REVIEW OF SYSTEMS: Could not be obtained. The patient is just out of surgery. He is currently sedated. Current vital signs are reviewed. They include temperature 97.9, heart rate 70, respiratory 16, blood pressure 130/88, room air saturation 100%, and saturations of 100% on the ventilator. In fact her gases are rather good. Appears no acute distress. Currently sedated. There is an orally placed endotracheal tube and NG tube. HEENT: Examination is grossly unremarkable. NECK: Supple. Cardiovascular examination was regular rhythm and rate. Heart rate about 85 beats per minute. No murmur. S1, S2 normal. LUNGS: A few scattered rhonchi. No wheezes. Breath sounds equal. Abdomen is soft. Extremities are intact. No cyanosis, clubbing, or edema. Skin without rash. Neurologic examination could not be properly assessed. LAB DATA: Reviewed. White count 6.4, hemoglobin 10.7, hematocrit 31.7, platelet count 158,000. PT 12.6, INR 1.2, PTT 32.4. Initial gases show PO2 369, pCO2 37, Ph 7.42. FiO2 was dropped all the way down to 40%. The rest of the vent settings are appropriate. She is currently on SIMV with 5 of PEEP and 5 of pressor support. Sodium and potassium normal. Chloride 110, CO2 22, anion gap is normal. BUN and creatinine were normal. The rest of the labs look okay. The patient's chest x-rays reviewed. The chest x-ray looks good. Endotracheal tube is in good position. PA catheter is in good position. Lung lacey are clear. The rest of the lines and tubes are fine. ASSESSMENT: 1. Postoperative day #0, status post 2 vessel bypass grafting. 2. Recently discovered CAD. 3. History of hypertension. 4. History of hyperlipidemia. 5. History of asthma. 6. History of chronic alcohol use. 7. Lifelong nonsmoker. PLAN: We will continue to follow. Hopeful a early extubation on this patient. The patient's chest x-ray looks excellent. First set gases show excellent oxygenation. Once the patient is more awake, we will go ahead and get a full set of weaning parameters and determine if the patient is a good candidate for spontaneous breathing trial. If so, and if they past a cuff leak test, the patient will be extubated. We will continue to follow. Once extubated, we will recommend deep breathing coughing and clearing secretions and hourly use of the incentive spirometer. MMODL / IJN: [id number] /
[2018-01-30 18:11] LABS: Glucose,Whole Blood 137 mg/dL (75-99)
[2018-01-30 19:01] LABS: Glucose,Whole Blood 117 mg/dL (75-99)
[2018-01-30 20:09] LABS: Glucose,Whole Blood 101 mg/dL (75-99)
[2018-01-30] MEDS ORDERED: MUPIROCIN 2% OINT 22 GM TUBE NASAL ONE (20:45)
[2018-01-30 20:52] LABS: HCT 38.4 % (34.0-46.0); HGB 12.3 gm/dL (11.4-16.0); MCH 29.6 pg (25.0-35.0); MCHC 32.2 g/dL (31.0-37.0); MCV 91.9 fL (80.0-100.0); Mean Platelet Volume 7.7; Platelet Count 206 k/uL (150-450); RBC 4.18 m/uL (3.80-5.40); RDW 12.2 % (11.5-15.5); WBC 10.9 k/uL (3.8-10.6)
[2018-01-30] MEDS: HEPARIN SODIUM,PORCINE 5,000 UNIT/ML 1 ML VIAL SQ SCH (21:00)
[2018-01-30] MEDS ORDERED: MUPIROCIN 2% OINT 22 GM TUBE NASAL SCH (21:00)
[2018-01-30 21:15] LABS: Glucose,Whole Blood 118 mg/dL (75-99)
[2018-01-30 22:07] LABS: Glucose,Whole Blood 144 mg/dL (75-99)
[2018-01-30 23:37] LABS: Glucose,Whole Blood 144 mg/dL (75-99)
[2018-01-31 00:22] LABS: Glucose,Whole Blood 118 mg/dL (75-99)
[2018-01-31 00:22] LABS: Glucose,Whole Blood 116 mg/dL (75-99)
[2018-01-31 01:03] LABS: Glucose,Whole Blood 120 mg/dL (75-99)
[2018-01-31 01:14] LABS: Glucose,Whole Blood 132 mg/dL (75-99)
[2018-01-31 02:43] LABS: Glucose,Whole Blood 118 mg/dL (75-99)
[2018-01-31 03:09] LABS: Glucose,Whole Blood 132 mg/dL (75-99)
[2018-01-31 04:19] LABS: Glucose,Whole Blood 109 mg/dL (75-99)
[2018-01-31] MEDS: KETOROLAC 30 MG/ML 1 ML VIAL IVP SCH ×3 (05:06→19:29)
[2018-01-31] MEDS: HEPARIN SODIUM,PORCINE 5,000 UNIT/ML 1 ML VIAL SQ SCH ×3 (05:07→20:58)
[2018-01-31] MEDS: ACETAMINOPHEN IV (For NPO) 1,000 MG in EMPTY BAG 1 BAG IVPB SCH ×3 (05:24→19:35)
[2018-01-31 06:14] LABS: Glucose,Whole Blood 125 mg/dL (75-99)
[2018-01-31 06:14] LABS: Glucose,Whole Blood 95 mg/dL (75-99)
[2018-01-31 06:14] LABS: Glucose,Whole Blood 92 mg/dL (75-99)
[2018-01-31 06:49] LABS: Basophils % (A) 0 %; Eosinophils # (A) 0.1 k/uL (0-0.7); Eosinophils % (A) 1 %; HCT 37.9 % (34.0-46.0); HGB 12.6 gm/dL (11.4-16.0); Lymphocytes # (A) 1.6 k/uL (1.0-4.8); Lymphocytes % (A) 16 %; MCH 30.3 pg (25.0-35.0); MCHC 33.3 g/dL (31.0-37.0); MCV 91.1 fL (80.0-100.0); Mean Platelet Volume 7.9; Monocytes # (A) 0.6 k/uL (0-1.0); Monocytes % (A) 7 %; Neutrophils # (A) 7.4 k/uL (1.3-7.7); Neutrophils % (A) 76 %; Platelet Count 209 k/uL (150-450); RBC 4.16 m/uL (3.80-5.40); RDW 12.3 % (11.5-15.5); WBC 9.7 k/uL (3.8-10.6)
[2018-01-31 06:50] LABS: ALT 26 U/L (9-52); AST 40 U/L (14-36); Albumin 3.8 g/dL (3.5-5.0); Alkaline Phosphatase 67 U/L (38-126); Anion Gap 9 mmol/L; Blood Urea Nitrogen 7 mg/dL (7-17); Carbon Dioxide 27 mmol/L (22-30); Chloride 101 mmol/L (98-107); Glucose 95 mg/dL (74-99); Magnesium 1.9 mg/dL (1.6-2.3); Potassium 3.9 mmol/L (3.5-5.1); Sodium 137 mmol/L (137-145); Total Protein 6.3 g/dL (6.3-8.2)
[2018-01-31 06:52] LABS: Partial Thromboplastin Time 26.1 sec (22.0-30.0); Prothrombin Time 10.9 sec (9.0-12.0)
[2018-01-31] MEDS ORDERED: MAGNESIUM SULFATE-D5W PMX 1 GM in DEXTROSE/WATER 1 100ML.BAG IVPB ONE (07:08)
[2018-01-31] MEDS ORDERED: POTASSIUM CHLORIDE ER 20 MEQ TAB.ER PO STA (07:08)
[2018-01-31] MEDS: IPRATROPIUM-ALBUTEROL 3 ML NEB INHALATION SCH ×4 (07:24→21:17)
--- NOTE | 2018-01-31 08:05 | XR ---
EXAMINATION TYPE: XR chest 1V portable DATE OF EXAM: 01/31/2018 COMPARISON: 01/30/2018 HISTORY: Status post cardiac surgery. Follow-up exam. TECHNIQUE: Single frontal view of the chest is obtained. FINDINGS: Left-sided thoracostomy tube is in similar position with no residual pneumothorax. [place] catheter and mediastinal drain are unchanged as well as post CABG changes of the chest. Endotrache al and enteric tubes have been removed. Minimal left lower lung subsegmental atelectasis is present. Cardia mediastinal silhouette is stable. Osseous structures are grossly intact. IMPRESSION: Interval extubation and removal of the enteric tube with minimal residual left basilar a telectasis. Other lines and tubes are stable.
[2018-01-31 08:06] LABS: Glucose,Whole Blood 206 mg/dL (75-99)
[2018-01-31] MEDS: ASPIRIN 325 MG TAB PO SCH (08:23)
[2018-01-31] MEDS: LACTATED RINGERS 1,000 ML IV SCH (08:23)
[2018-01-31] MEDS: ATORVASTATIN 40 MG TAB PO SCH (08:23)
[2018-01-31] MEDS: CLOPIDOGREL 75 MG TAB PO SCH (08:23)
[2018-01-31] MEDS: ceFAZolin IN SWFI 2 GM/20 ML SYRINGE IVP SCH (08:27)
--- NOTE | 2018-01-31 08:41 | CONS ---
CONSULTATION Mrs. Ophelia Leyva was recently admitted to the hospital with what seems to be classic symptoms of angina without any enzymatic elevation. She underwent a stress echo which revealed lateral wall ischemia and subsequent cardiac cath by Dr. Elizabeth revealed that she had heavily calcified LAD and diagonal, both of which are critical stenosis and the diagonal branch had a tight stenosis at the takeoff and LAD was also highly diseased. She was given both options and wished to proceed with aortocoronary bypass surgery. Surgery was performed by Dr. Jose Beavers yesterday with a single ARMSTRONG to LAD and he had a jump graft to the diagonal. Postprocedure, she is doing very well. She has been extubated. She is off all pressors looks good. She was resting comfortably through the night and she is now sitting up in a chair. Complains of some incisional pain. PAST MEDICAL HISTORY: Past medical history is remarkable for hypertension and also bronchial asthma, both of which were fairly stable. PHYSICAL EXAMINATION: On examination, blood pressure is 112/70, pulse rate is 80 per minute sinus. There is S1, S2 heard normally. Lungs reveal fair air entry. Abdomen is soft. The rest of physical examination is fair. Patient is neurologically intact. IMPRESSION: 1. Status post aortocoronary bypass surgery with ARMSTRONG to LAD and jump graft to the diagonal. 2. Bronchial asthma. 3. Hypertension. RECOMMENDATION: I am recommending that we continue current medications, incentive spirometry, pulmonary toilet. Patient is progressing well. We will continue to follow. MMODL / IJN: [id number] /
[2018-01-31] MEDS ORDERED: METOPROLOL TARTRATE 12.5 MG TAB PO SCH (09:00)
[2018-01-31] MEDS ORDERED: PANTOPRAZOLE 40 MG/10 ML VIAL IVP SCH (09:00)
[2018-01-31 10:23] LABS: Glucose,Whole Blood 124 mg/dL (75-99)
[2018-01-31] MEDS ORDERED: METOPROLOL TARTRATE 12.5 MG TAB PO STA (10:38)
--- NOTE | 2018-01-31 11:02 | P.PN ---
Subjective Progress Note Date: 01/31/18 Principal diagnosis: Coronary artery disease status post coronary artery bypass grafting This a very pleasant 52-year-old female patient who follows with Dr. Svetlana garcia as her primary care physician. She has a history of hypertension, chronic bronchial asthma, hyperlipidemia, daily alcohol use of 2-3 drinks per day. She presented here to the emergency room on 01/30/2018 with complaints of chest tightness radiation radiating into her left jaw. She had subsequently undergone cardiac catheterization which revealed ostial diagonal stenosis of 99% , proximal LAD stenosis of 70%, mid RCA stenosis of 20-30%. She had subsequently undergone 2 vessel coronary artery bypass grafting yesterday. She is seen today in follow-up in the intensive care unit. She is currently sitting up in a chair at the bedside. She is awake and alert in no acute distress. Her pain is fairly well controlled. She is working well with the incentive spirometer. Chest x-ray shows atelectasis of the left lung base. Left pleural/mediastinal chest tube in place. She is maintaining good O2 saturations in the 90s on 3 L/m per nasal cannula. She has an IV of lactated Ringer's at 50 MLS per hour and currently on a insulin drip at 1 unit per hour. Cardiac output 6.2. Cardiac index is 3.5. PA pressure of 14/7 with a mean of 9 and right IJ [place] catheter in place. Heart hugger in place. White count 9.7. Hemoglobin 12.6. Platelets 209,000. Creatinine 0.57. Objective - Vital Signs Vital signs: Vital Signs Temp 98.6 F 01/31/18 04:00 Pulse 80 01/31/18 10:00 Resp 11 L 01/31/18 10:00 BP 116/81 01/31/18 10:00 Pulse Ox 98 01/31/18 10:00 Intake & Output 01/30/18 01/31/18 01/31/18 18:59 06:59 18:59 Intake Total 489.540 989.186 402.004 Output Total 2600 2330 495 Balance -2110.460 -1340.814 -92.996 Weight 78.5 kg 84.9 kg Intake: IV 484.5 891.0 344 ACETAMINOPHEN IV (For NPO 100 100 ) 1,000 mg In Empty Bag 1 bag @ 400 mls/hr IVPB Q6HR ARSENIO Rx#:[id number] CO/CI 80 80 20 LR 250 600 200 Magnesium Sulfate-D5w Pmx 100 1 gm In Dextrose/Water 1 100ml.bag @ 100 mls/hr IVPB ONCE ONE Rx#: [id number] Nitroglycerin-D5w Pmx 50 7.5 3.0 mg In Dextrose/Water 1 250ml.bag @ 5 MCG/MIN 1.5 mls/hr IV .Q24H A[facility]ENIO Rx#: [id number] Pressure Bag 45 108 24 Intake, IV Titration 5.040 98.186 58.004 Amount Clevidipine Butyrate 25 17.6 19.4 mg In Empty Bag 1 bag @ 1 MG/HR 2 mls/hr IV .Q24H A[facility]ENIO Rx#:[id number] Insulin Regular 100 unit 5.040 4.103 10.104 In Sodium Chloride 0.9% 100 ml @ Per Protocol IV .Q0M [facility]IO Rx#:[id number] Nitroglycerin-D5w Pmx 50 28.5 mg In Dextrose/Water 1 250ml.bag @ 5 MCG/MIN 1.5 mls/hr IV .Q24H [facility]IO Rx#: [id number] Propofol 1,000 mg In 76.483 Empty Bag 1 bag @ Titrate IV .Q0M A[facility]ENIO Rx#: [id number] Output: Chest Tube Drainage 230 230 70 Left Pleural/Mediastinal 230 230 70 Urine 1970 2100 425 Estimated Blood Loss 400 Other: Voiding Method Indwelling Catheter Indwelling Catheter ABP, PAP, CO, CI - Last Documented Arterial Blood Pressure 114/77 Pulmonary Artery Pressure 14/7 Cardiac Output 6.2 Cardiac Index 3.5 - Constitutional General appearance: Present: average body habitus, no acute distress - EENT Eyes: Present: EOMI, PERRLA ENT: Present: hearing grossly normal Ears: bilateral: normal - Neck Details: Right IJ in place Neck: Present: normal ROM Carotids: bilateral: upstroke normal Thyroid: bilateral: normal size - Respiratory Details: Chest tube in place Respiratory: bilateral: rales, rhonchi - Cardiovascular Rhythm: regular Heart sounds: normal: S1, S2 - Gastrointestinal General gastrointestinal: Present: decreased bowel sounds - Integumentary Integumentary: Present: normal turgor - Neurologic Neurologic: Present: CNII-XII intact - Musculoskeletal Musculoskeletal: Present: generalized weakness - Psychiatric Psychiatric: Present: A&O x's 3, appropriate affect, intact judgment & insight - Labs CBC & Chem 7: 01/31/18 05:30 01/31/18 05:30 Labs: Abnormal Lab Results - Last 24 Hours (Table) 01/25/18 01/30/18 01/30/18 Range/Units 06:31 10:03 11:13 WBC (3.8-10.6) k/uL RBC (3.80-5.40) m/uL Hgb (11.4-16.0) gm/dL Hct (34.0-46.0) % PT (9.0-12.0) sec INR (<1.2) APTT (22.0-30.0) sec ABG pH (7.35-7.45) ABG pCO2 34 L (35-45) mmHg ABG pO2 >420 H 268 H (83-108) mmHg ABG Total CO2 25 H 25 H (19-24) mmol/L ABG O2 Saturation 100.0 H 99.8 H (94-97) % ABG Ionized Calcium (4.5-5.3) mg/dL ABG Glucose 112 H (75-99) mg/dL Hemoglobin (11.4-16.0) gm/dL Chloride (98-107) mmol/L POC Glucose (mg/dL) (75-99) mg/dL Calcium (8.4-10.2) mg/dL AST (14-36) U/L Total Protein (6.3-8.2) g/dL Albumin (3.5-5.0) g/dL Arterial Blood Glucose 112 H (75-99) mg/dL Crossmatch See Detail 01/30/18 01/30/18 01/30/18 Range/Units 11:57 12:19 13:17 WBC (3.8-10.6) k/uL RBC 3.47 L (3.80-5.40) m/uL Hgb 10.7 L D (11.4-16.0) gm/dL Hct 31.7 L (34.0-46.0) % PT (9.0-12.0) sec INR (<1.2) APTT (22.0-30.0) sec ABG pH (7.35-7.45) ABG pCO2 (35-45) mmHg ABG pO2 304 H 246 H (83-108) mmHg ABG Total CO2 (19-24) mmol/L ABG O2 Saturation 99.8 H 99.8 H (94-97) % ABG Ionized Calcium 4.4 L 4.3 L (4.5-5.3) mg/dL ABG Glucose 107 H 103 H (75-99) mg/dL Hemoglobin 11.2 L (11.4-16.0) gm/dL Chloride (98-107) mmol/L POC Glucose (mg/dL) (75-99) mg/dL Calcium (8.4-10.2) mg/dL AST (14-36) U/L Total Protein (6.3-8.2) g/dL Albumin (3.5-5.0) g/dL Arterial Blood Glucose 107 H 103 H (75-99) mg/dL Crossmatch 01/30/18 01/30/18 01/30/18 Range/Units 13:17 13:17 13:44 WBC (3.8-10.6) k/uL RBC (3.80-5.40) m/uL Hgb (11.4-16.0) gm/dL Hct (34.0-46.0) % PT 12.6 H (9.0-12.0) sec INR 1.2 H (<1.2) APTT 32.4 H (22.0-30.0) sec ABG pH (7.35-7.45) ABG pCO2 (35-45) mmHg ABG pO2 369 H (83-108) mmHg ABG Total CO2 25 H (19-24) mmol/L ABG O2 Saturation 100.0 H (94-97) % ABG Ionized Calcium (4.5-5.3) mg/dL ABG Glucose (75-99) mg/dL Hemoglobin (11.4-16.0) gm/dL Chloride 110 H (98-107) mmol/L POC Glucose (mg/dL) (75-99) mg/dL Calcium 8.0 L (8.4-10.2) mg/dL AST (14-36) U/L Total Protein 5.1 L (6.3-8.2) g/dL Albumin 3.1 L (3.5-5.0) g/dL Arterial Blood Glucose (75-99) mg/dL Crossmatch 01/30/18 01/30/18 01/30/18 Range/Units 15:16 16:10 16:11 WBC (3.8-10.6) k/uL RBC (3.80-5.40) m/uL Hgb (11.4-16.0) gm/dL Hct (34.0-46.0) % PT (9.0-12.0) sec INR (<1.2) APTT (22.0-30.0) sec ABG pH 7.34 L (7.35-7.45) ABG pCO2 46 H (35-45) mmHg ABG pO2 (83-108) mmHg ABG Total CO2 26 H (19-24) mmol/L ABG O2 Saturation 97.6 H (94-97) % ABG Ionized Calcium (4.5-5.3) mg/dL ABG Glucose (75-99) mg/dL Hemoglobin (11.4-16.0) gm/dL Chloride (98-107) mmol/L POC Glucose (mg/dL) 135 H 175 H (75-99) mg/dL Calcium (8.4-10.2) mg/dL AST (14-36) U/L Total Protein (6.3-8.2) g/dL Albumin (3.5-5.0) g/dL Arterial Blood Glucose (75-99) mg/dL Crossmatch 01/30/18 01/30/18 01/30/18 Range/Units 16:40 17:09 18:08 WBC (3.8-10.6) k/uL RBC (3.80-5.40) m/uL Hgb (11.4-16.0) gm/dL Hct (34.0-46.0) % PT (9.0-12.0) sec INR (<1.2) APTT (22.0-30.0) sec ABG pH (7.35-7.45) ABG pCO2 (35-45) mmHg ABG pO2 (83-108) mmHg ABG Total CO2 (19-24) mmol/L ABG O2 Saturation (94-97) % ABG Ionized Calcium (4.5-5.3) mg/dL ABG Glucose (75-99) mg/dL Hemoglobin (11.4-16.0) gm/dL Chloride (98-107) mmol/L POC Glucose (mg/dL) 156 H 161 H 137 H (75-99) mg/dL Calcium (8.4-10.2) mg/dL AST (14-36) U/L Total Protein (6.3-8.2) g/dL Albumin (3.5-5.0) g/dL Arterial Blood Glucose (75-99) mg/dL Crossmatch 01/30/18 01/30/18 01/30/18 Range/Units 18:59 20:06 20:29 WBC 10.9 H (3.8-10.6) k/uL RBC (3.80-5.40) m/uL Hgb (11.4-16.0) gm/dL Hct (34.0-46.0) % PT (9.0-12.0) sec INR (<1.2) APTT (22.0-30.0) sec ABG pH (7.35-7.45) ABG pCO2 (35-45) mmHg ABG pO2 (83-108) mmHg ABG Total CO2 (19-24) mmol/L ABG O2 Saturation (94-97) % ABG Ionized Calcium (4.5-5.3) mg/dL ABG Glucose (75-99) mg/dL Hemoglobin (11.4-16.0) gm/dL Chloride (98-107) mmol/L POC Glucose (mg/dL) 117 H 101 H (75-99) mg/dL Calcium (8.4-10.2) mg/dL AST (14-36) U/L Total Protein (6.3-8.2) g/dL Albumin (3.5-5.0) g/dL Arterial Blood Glucose (75-99) mg/dL Crossmatch 01/30/18 01/30/18 01/30/18 Range/Units 21:02 22:06 23:12 WBC (3.8-10.6) k/uL RBC (3.80-5.40) m/uL Hgb (11.4-16.0) gm/dL Hct (34.0-46.0) % PT (9.0-12.0) sec INR (<1.2) APTT (22.0-30.0) sec ABG pH (7.35-7.45) ABG pCO2 (35-45) mmHg ABG pO2 (83-108) mmHg ABG Total CO2 (19-24) mmol/L ABG O2 Saturation (94-97) % ABG Ionized Calcium (4.5-5.3) mg/dL ABG Glucose (75-99) mg/dL Hemoglobin (11.4-16.0) gm/dL Chloride (98-107) mmol/L POC Glucose (mg/dL) 118 H 144 H 144 H (75-99) mg/dL Calcium (8.4-10.2) mg/dL AST (14-36) U/L Total Protein (6.3-8.2) g/dL Albumin (3.5-5.0) g/dL Arterial Blood Glucose (75-99) mg/dL Crossmatch 01/31/18 01/31/18 01/31/18 Range/Units 00:14 00:20 01:01 WBC (3.8-10.6) k/uL RBC (3.80-5.40) m/uL Hgb (11.4-16.0) gm/dL Hct (34.0-46.0) % PT (9.0-12.0) sec INR (<1.2) APTT (22.0-30.0) sec ABG pH (7.35-7.45) ABG pCO2 (35-45) mmHg ABG pO2 (83-108) mmHg ABG Total CO2 (19-24) mmol/L ABG O2 Saturation (94-97) % ABG Ionized Calcium (4.5-5.3) mg/dL ABG Glucose (75-99) mg/dL Hemoglobin (11.4-16.0) gm/dL Chloride (98-107) mmol/L POC Glucose (mg/dL) 116 H 118 H 120 H (75-99) mg/dL Calcium (8.4-10.2) mg/dL AST (14-36) U/L Total Protein (6.3-8.2) g/dL Albumin (3.5-5.0) g/dL Arterial Blood Glucose (75-99) mg/dL Crossmatch 01/31/18 01/31/18 01/31/18 Range/Units 01:11 02:18 03:06 WBC (3.8-10.6) k/uL RBC (3.80-5.40) m/uL Hgb (11.4-16.0) gm/dL Hct (34.0-46.0) % PT (9.0-12.0) sec INR (<1.2) APTT (22.0-30.0) sec ABG pH (7.35-7.45) ABG pCO2 (35-45) mmHg ABG pO2 (83-108) mmHg ABG Total CO2 (19-24) mmol/L ABG O2 Saturation (94-97) % ABG Ionized Calcium (4.5-5.3) mg/dL ABG Glucose (75-99) mg/dL Hemoglobin (11.4-16.0) gm/dL Chloride (98-107) mmol/L POC Glucose (mg/dL) 132 H 118 H 132 H (75-99) mg/dL Calcium (8.4-10.2) mg/dL AST (14-36) U/L Total Protein (6.3-8.2) g/dL Albumin (3.5-5.0) g/dL Arterial Blood Glucose (75-99) mg/dL Crossmatch 01/31/18 01/31/18 01/31/18 Range/Units 04:16 05:30 06:11 WBC (3.8-10.6) k/uL RBC (3.80-5.40) m/uL Hgb (11.4-16.0) gm/dL Hct (34.0-46.0) % PT (9.0-12.0) sec INR (<1.2) APTT (22.0-30.0) sec ABG pH (7.35-7.45) ABG pCO2 (35-45) mmHg ABG pO2 (83-108) mmHg ABG Total CO2 (19-24) mmol/L ABG O2 Saturation (94-97) % ABG Ionized Calcium (4.5-5.3) mg/dL ABG Glucose (75-99) mg/dL Hemoglobin (11.4-16.0) gm/dL Chloride (98-107) mmol/L POC Glucose (mg/dL) 109 H 125 H (75-99) mg/dL Calcium (8.4-10.2) mg/dL AST 40 H (14-36) U/L Total Protein (6.3-8.2) g/dL Albumin (3.5-5.0) g/dL Arterial Blood Glucose (75-99) mg/dL Crossmatch 01/31/18 01/31/18 Range/Units 08:02 09:46 WBC (3.8-10.6) k/uL RBC (3.80-5.40) m/uL Hgb (11.4-16.0) gm/dL Hct (34.0-46.0) % PT (9.0-12.0) sec INR (<1.2) APTT (22.0-30.0) sec ABG pH (7.35-7.45) ABG pCO2 (35-45) mmHg ABG pO2 (83-108) mmHg ABG Total CO2 (19-24) mmol/L ABG O2 Saturation (94-97) % ABG Ionized Calcium (4.5-5.3) mg/dL ABG Glucose (75-99) mg/dL Hemoglobin (11.4-16.0) gm/dL Chloride (98-107) mmol/L POC Glucose (mg/dL) 206 H 124 H (75-99) mg/dL Calcium (8.4-10.2) mg/dL AST (14-36) U/L Total Protein (6.3-8.2) g/dL Albumin (3.5-5.0) g/dL Arterial Blood Glucose (75-99) mg/dL Crossmatch Assessment and Plan Assessment: Impression: #1 Coronary artery disease status post coronary artery bypass grafting 2. Postoperative day #1. #2 History of hypertension. #3 Hyperlipidemia. #4 History of asthma. #5 Daily alcohol use. Plan: The patient was seen and evaluated by Dr. Gonzaels. Chest x-ray and labs were reviewed. She is again encouraged regarding the increased use the incentive spirometer and cough and deep breathing exercises. Continue updraft treatments. Increase her activity as tolerated. Heparin for DVT prophylaxis. We will continue to follow and make further recommendations based on her clinical status. I, the cosigning physician, performed a history & physical examination of the patient. Lungs sounds with crackles in the bilateral posterior bases. Maintaining good O2 saturations in the 90s on 3 L/m per nasal cannula. I discussed the assessment and plan of care with my nurse practitioner, Litzy Canas. I attest to the above note as dictated by her. Time with Patient: Greater than 30
--- NOTE | 2018-01-31 11:56 | P.PN ---
Subjective Progress Note Date: 01/31/18 This is a 52-year-old female with a known past medical history of symptomatic coronary disease, hypertension, asthma, hyperlipidemia, osteoarthritis and daily alcohol use of 2-3 drinks per day. Patient was hospitalized January 24 for chest pain and at that time she was found to have a positive stress test underwent heart catheterization which demonstrated ostial diagonal stenosis of 99%, proximal LAD stenosis after the diagonal of 70% and mid RCA stenosis of 20- 30%. she was evaluated by the cardiothoracic surgeon and decided to proceed with coronary artery bypass grafting. Patient is postop day #0 status post off- pump CABG 2. Patient currently in the ICU intubated and sedated. She is starting to wake up. She has 2 chest tubes. No evidence of distress. Vitals are stable. We have been consulted for medical management. 01/31/2018 patient was extubated yesterday evening. She may have chest tube removed today. She's been up and sitting at bedside chair. They're working on pain management. Pain is better controlled at this time. Patient also had some nausea now resolved with Zofran. Patient is belching. She is not passing gas this time bowel movement yet. Denies any shortness of breath Objective - Vital Signs Vital signs: Vital Signs Temp 98.6 F 01/31/18 04:00 Pulse 98 01/31/18 11:24 Resp 16 01/31/18 11:11 BP 116/81 01/31/18 10:00 Pulse Ox 98 01/31/18 10:00 Intake & Output 01/30/18 01/31/18 01/31/18 18:59 06:59 18:59 Intake Total 489.540 989.186 402.004 Output Total 2600 2330 495 Balance -2110.460 -1340.814 -92.996 Weight 78.5 kg 84.9 kg Intake: IV 484.5 891.0 344 ACETAMINOPHEN IV (For NPO 100 100 ) 1,000 mg In Empty Bag 1 bag @ 400 mls/hr IVPB Q6HR [facility] Rx#:[id number] CO/CI 80 80 20 LR 250 600 200 Magnesium Sulfate-D5w Pmx 100 1 gm In Dextrose/Water 1 100ml.bag @ 100 mls/hr IVPB ONCE ONE Rx#: [id number] Nitroglycerin-D5w Pmx 50 7.5 3.0 mg In Dextrose/Water 1 250ml.bag @ 5 MCG/MIN 1.5 mls/hr IV .Q24H [facility] Rx#: [id number] Pressure Bag 45 108 24 Intake, IV Titration 5.040 98.186 58.004 Amount Clevidipine Butyrate 25 17.6 19.4 mg In Empty Bag 1 bag @ 1 MG/HR 2 mls/hr IV .Q24H [facility] Rx#:[id number] Insulin Regular 100 unit 5.040 4.103 10.104 In Sodium Chloride 0.9% 100 ml @ Per Protocol IV .Q0M [facility] Rx#:[id number] Nitroglycerin-D5w Pmx 50 28.5 mg In Dextrose/Water 1 250ml.bag @ 5 MCG/MIN 1.5 mls/hr IV .Q24H [facility] Rx#: [id number] Propofol 1,000 mg In 76.483 Empty Bag 1 bag @ Titrate IV .Q0M [facility] Rx#: [id number] Output: Chest Tube Drainage 230 230 70 Left Pleural/Mediastinal 230 230 70 Urine 1970 2100 425 Estimated Blood Loss 400 Other: Voiding Method Indwelling Catheter Indwelling Catheter ABP, PAP, CO, CI - Last Documented Arterial Blood Pressure 114/77 Pulmonary Artery Pressure 14/7 Cardiac Output 6.2 Cardiac Index 3.5 - Exam Head normocephalic Neck supple Lungs clear to auscultation bilaterally no wheezing or crackles Heart regular rate and rhythm S1-S2, no rub or gallop Abdomen is soft nontender nondistended positive bowel sounds no hepatosplenomegaly Extremities no edema Neuro alert and orientated to 3 - Labs CBC & Chem 7: 01/31/18 05:30 01/31/18 05:30 Labs: Abnormal Lab Results - Last 24 Hours (Table) 01/25/18 01/30/18 01/30/18 Range/Units 06:31 10:03 11:13 WBC (3.8-10.6) k/uL RBC (3.80-5.40) m/uL Hgb (11.4-16.0) gm/dL Hct (34.0-46.0) % PT (9.0-12.0) sec INR (<1.2) APTT (22.0-30.0) sec ABG pH (7.35-7.45) ABG pCO2 34 L (35-45) mmHg ABG pO2 >420 H 268 H (83-108) mmHg ABG Total CO2 25 H 25 H (19-24) mmol/L ABG O2 Saturation 100.0 H 99.8 H (94-97) % ABG Ionized Calcium (4.5-5.3) mg/dL ABG Glucose 112 H (75-99) mg/dL Hemoglobin (11.4-16.0) gm/dL Chloride (98-107) mmol/L POC Glucose (mg/dL) (75-99) mg/dL Calcium (8.4-10.2) mg/dL AST (14-36) U/L Total Protein (6.3-8.2) g/dL Albumin (3.5-5.0) g/dL Arterial Blood Glucose 112 H (75-99) mg/dL Crossmatch See Detail 01/30/18 01/30/18 01/30/18 Range/Units 11:57 12:19 13:17 WBC (3.8-10.6) k/uL RBC 3.47 L (3.80-5.40) m/uL Hgb 10.7 L D (11.4-16.0) gm/dL Hct 31.7 L (34.0-46.0) % PT (9.0-12.0) sec INR (<1.2) APTT (22.0-30.0) sec ABG pH (7.35-7.45) ABG pCO2 (35-45) mmHg ABG pO2 304 H 246 H (83-108) mmHg ABG Total CO2 (19-24) mmol/L ABG O2 Saturation 99.8 H 99.8 H (94-97) % ABG Ionized Calcium 4.4 L 4.3 L (4.5-5.3) mg/dL ABG Glucose 107 H 103 H (75-99) mg/dL Hemoglobin 11.2 L (11.4-16.0) gm/dL Chloride (98-107) mmol/L POC Glucose (mg/dL) (75-99) mg/dL Calcium (8.4-10.2) mg/dL AST (14-36) U/L Total Protein (6.3-8.2) g/dL Albumin (3.5-5.0) g/dL Arterial Blood Glucose 107 H 103 H (75-99) mg/dL Crossmatch 01/30/18 01/30/18 01/30/18 Range/Units 13:17 13:17 13:44 WBC (3.8-10.6) k/uL RBC (3.80-5.40) m/uL Hgb (11.4-16.0) gm/dL Hct (34.0-46.0) % PT 12.6 H (9.0-12.0) sec INR 1.2 H (<1.2) APTT 32.4 H (22.0-30.0) sec ABG pH (7.35-7.45) ABG pCO2 (35-45) mmHg ABG pO2 369 H (83-108) mmHg ABG Total CO2 25 H (19-24) mmol/L ABG O2 Saturation 100.0 H (94-97) % ABG Ionized Calcium (4.5-5.3) mg/dL ABG Glucose (75-99) mg/dL Hemoglobin (11.4-16.0) gm/dL Chloride 110 H (98-107) mmol/L POC Glucose (mg/dL) (75-99) mg/dL Calcium 8.0 L (8.4-10.2) mg/dL AST (14-36) U/L Total Protein 5.1 L (6.3-8.2) g/dL Albumin 3.1 L (3.5-5.0) g/dL Arterial Blood Glucose (75-99) mg/dL Crossmatch 01/30/18 01/30/18 01/30/18 Range/Units 15:16 16:10 16:11 WBC (3.8-10.6) k/uL RBC (3.80-5.40) m/uL Hgb (11.4-16.0) gm/dL Hct (34.0-46.0) % PT (9.0-12.0) sec INR (<1.2) APTT (22.0-30.0) sec ABG pH 7.34 L (7.35-7.45) ABG pCO2 46 H (35-45) mmHg ABG pO2 (83-108) mmHg ABG Total CO2 26 H (19-24) mmol/L ABG O2 Saturation 97.6 H (94-97) % ABG Ionized Calcium (4.5-5.3) mg/dL ABG Glucose (75-99) mg/dL Hemoglobin (11.4-16.0) gm/dL Chloride (98-107) mmol/L POC Glucose (mg/dL) 135 H 175 H (75-99) mg/dL Calcium (8.4-10.2) mg/dL AST (14-36) U/L Total Protein (6.3-8.2) g/dL Albumin (3.5-5.0) g/dL Arterial Blood Glucose (75-99) mg/dL Crossmatch 01/30/18 01/30/18 01/30/18 Range/Units 16:40 17:09 18:08 WBC (3.8-10.6) k/uL RBC (3.80-5.40) m/uL Hgb (11.4-16.0) gm/dL Hct (34.0-46.0) % PT (9.0-12.0) sec INR (<1.2) APTT (22.0-30.0) sec ABG pH (7.35-7.45) ABG pCO2 (35-45) mmHg ABG pO2 (83-108) mmHg ABG Total CO2 (19-24) mmol/L ABG O2 Saturation (94-97) % ABG Ionized Calcium (4.5-5.3) mg/dL ABG Glucose (75-99) mg/dL Hemoglobin (11.4-16.0) gm/dL Chloride (98-107) mmol/L POC Glucose (mg/dL) 156 H 161 H 137 H (75-99) mg/dL Calcium (8.4-10.2) mg/dL AST (14-36) U/L Total Protein (6.3-8.2) g/dL Albumin (3.5-5.0) g/dL Arterial Blood Glucose (75-99) mg/dL Crossmatch 01/30/18 01/30/18 01/30/18 Range/Units 18:59 20:06 20:29 WBC 10.9 H (3.8-10.6) k/uL RBC (3.80-5.40) m/uL Hgb (11.4-16.0) gm/dL Hct (34.0-46.0) % PT (9.0-12.0) sec INR (<1.2) APTT (22.0-30.0) sec ABG pH (7.35-7.45) ABG pCO2 (35-45) mmHg ABG pO2 (83-108) mmHg ABG Total CO2 (19-24) mmol/L ABG O2 Saturation (94-97) % ABG Ionized Calcium (4.5-5.3) mg/dL ABG Glucose (75-99) mg/dL Hemoglobin (11.4-16.0) gm/dL Chloride (98-107) mmol/L POC Glucose (mg/dL) 117 H 101 H (75-99) mg/dL Calcium (8.4-10.2) mg/dL AST (14-36) U/L Total Protein (6.3-8.2) g/dL Albumin (3.5-5.0) g/dL Arterial Blood Glucose (75-99) mg/dL Crossmatch 01/30/18 01/30/18 01/30/18 Range/Units 21:02 22:06 23:12 WBC (3.8-10.6) k/uL RBC (3.80-5.40) m/uL Hgb (11.4-16.0) gm/dL Hct (34.0-46.0) % PT (9.0-12.0) sec INR (<1.2) APTT (22.0-30.0) sec ABG pH (7.35-7.45) ABG pCO2 (35-45) mmHg ABG pO2 (83-108) mmHg ABG Total CO2 (19-24) mmol/L ABG O2 Saturation (94-97) % ABG Ionized Calcium (4.5-5.3) mg/dL ABG Glucose (75-99) mg/dL Hemoglobin (11.4-16.0) gm/dL Chloride (98-107) mmol/L POC Glucose (mg/dL) 118 H 144 H 144 H (75-99) mg/dL Calcium (8.4-10.2) mg/dL AST (14-36) U/L Total Protein (6.3-8.2) g/dL Albumin (3.5-5.0) g/dL Arterial Blood Glucose (75-99) mg/dL Crossmatch 01/31/18 01/31/18 01/31/18 Range/Units 00:14 00:20 01:01 WBC (3.8-10.6) k/uL RBC (3.80-5.40) m/uL Hgb (11.4-16.0) gm/dL Hct (34.0-46.0) % PT (9.0-12.0) sec INR (<1.2) APTT (22.0-30.0) sec ABG pH (7.35-7.45) ABG pCO2 (35-45) mmHg ABG pO2 (83-108) mmHg ABG Total CO2 (19-24) mmol/L ABG O2 Saturation (94-97) % ABG Ionized Calcium (4.5-5.3) mg/dL ABG Glucose (75-99) mg/dL Hemoglobin (11.4-16.0) gm/dL Chloride (98-107) mmol/L POC Glucose (mg/dL) 116 H 118 H 120 H (75-99) mg/dL Calcium (8.4-10.2) mg/dL AST (14-36) U/L Total Protein (6.3-8.2) g/dL Albumin (3.5-5.0) g/dL Arterial Blood Glucose (75-99) mg/dL Crossmatch 01/31/18 01/31/18 01/31/18 Range/Units 01:11 02:18 03:06 WBC (3.8-10.6) k/uL RBC (3.80-5.40) m/uL Hgb (11.4-16.0) gm/dL Hct (34.0-46.0) % PT (9.0-12.0) sec INR (<1.2) APTT (22.0-30.0) sec ABG pH (7.35-7.45) ABG pCO2 (35-45) mmHg ABG pO2 (83-108) mmHg ABG Total CO2 (19-24) mmol/L ABG O2 Saturation (94-97) % ABG Ionized Calcium (4.5-5.3) mg/dL ABG Glucose (75-99) mg/dL Hemoglobin (11.4-16.0) gm/dL Chloride (98-107) mmol/L POC Glucose (mg/dL) 132 H 118 H 132 H (75-99) mg/dL Calcium (8.4-10.2) mg/dL AST (14-36) U/L Total Protein (6.3-8.2) g/dL Albumin (3.5-5.0) g/dL Arterial Blood Glucose (75-99) mg/dL Crossmatch 01/31/18 01/31/18 01/31/18 Range/Units 04:16 05:30 06:11 WBC (3.8-10.6) k/uL RBC (3.80-5.40) m/uL Hgb (11.4-16.0) gm/dL Hct (34.0-46.0) % PT (9.0-12.0) sec INR (<1.2) APTT (22.0-30.0) sec ABG pH (7.35-7.45) ABG pCO2 (35-45) mmHg ABG pO2 (83-108) mmHg ABG Total CO2 (19-24) mmol/L ABG O2 Saturation (94-97) % ABG Ionized Calcium (4.5-5.3) mg/dL ABG Glucose (75-99) mg/dL Hemoglobin (11.4-16.0) gm/dL Chloride (98-107) mmol/L POC Glucose (mg/dL) 109 H 125 H (75-99) mg/dL Calcium (8.4-10.2) mg/dL AST 40 H (14-36) U/L Total Protein (6.3-8.2) g/dL Albumin (3.5-5.0) g/dL Arterial Blood Glucose (75-99) mg/dL Crossmatch 01/31/18 01/31/18 Range/Units 08:02 09:46 WBC (3.8-10.6) k/uL RBC (3.80-5.40) m/uL Hgb (11.4-16.0) gm/dL Hct (34.0-46.0) % PT (9.0-12.0) sec INR (<1.2) APTT (22.0-30.0) sec ABG pH (7.35-7.45) ABG pCO2 (35-45) mmHg ABG pO2 (83-108) mmHg ABG Total CO2 (19-24) mmol/L ABG O2 Saturation (94-97) % ABG Ionized Calcium (4.5-5.3) mg/dL ABG Glucose (75-99) mg/dL Hemoglobin (11.4-16.0) gm/dL Chloride (98-107) mmol/L POC Glucose (mg/dL) 206 H 124 H (75-99) mg/dL Calcium (8.4-10.2) mg/dL AST (14-36) U/L Total Protein (6.3-8.2) g/dL Albumin (3.5-5.0) g/dL Arterial Blood Glucose (75-99) mg/dL Crossmatch Assessment and Plan Assessment: 1. Symptomatic coronary artery disease status CABG 2 vessels. Postop day #1 2. Essential hypertension 3. History of asthma 4. History of hyperlipidemia continue statin 5. Daily alcohol use of 2-3 drinks daily. GI prophylaxis protonix and DVT prophylaxis subcu heparin I performed an examination of the patient and discussed their management with the physician Integrated Specialist. I have reviewed the Physician Integrated Specialist's notes and agree with the documented findings and plan of care
[2018-01-31 12:17] LABS: Glucose,Whole Blood 112 mg/dL (75-99)
[2018-01-31] MEDS ORDERED: LORazepam 2 MG/ML INJ IV PRN ×3 (12:33)
--- NOTE | 2018-01-31 12:46 | P.PN ---
Subjective Progress Note Date: 01/31/18 Principal diagnosis: Symptomatic coronary artery disease. Previous medical history of remote hypertension, asthma, hyperlipidemia, daily alcohol use of 2-3 drinks per day. POD #1 off-pump coronary artery bypass graft 2, left internal mammary artery graft to the left anterior descending coronary artery and jump Y left internal mammary artery graft to the first diagonal branch. Intraoperative transesophageal echocardiogram performed by anesthesia. The patient is currently sitting up in a recliner in no acute distress. Does have significant pain issues, denies shortness of breath. She was successfully extubated yesterday at 16:25. She remains hemodynamically stable on no inotropes or pressors. Objective - Vital Signs Vital signs: Vital Signs Temp 98.6 F 01/31/18 04:00 Pulse 98 01/31/18 11:24 Resp 16 01/31/18 11:11 BP 116/81 01/31/18 10:00 Pulse Ox 98 01/31/18 10:00 Intake & Output 01/30/18 01/31/18 01/31/18 18:59 06:59 18:59 Intake Total 489.540 989.186 402.004 Output Total 2600 2330 495 Balance -2110.460 -1340.814 -92.996 Weight 78.5 kg 84.9 kg 84.9 kg Intake: IV 484.5 891.0 344 ACETAMINOPHEN IV (For NPO 100 100 ) 1,000 mg In Empty Bag 1 bag @ 400 mls/hr IVPB Q6HR [facility] Rx#:[id number] CO/CI 80 80 20 LR 250 600 200 Magnesium Sulfate-D5w Pmx 100 1 gm In Dextrose/Water 1 100ml.bag @ 100 mls/hr IVPB ONCE ONE Rx#: [id number] Nitroglycerin-D5w Pmx 50 7.5 3.0 mg In Dextrose/Water 1 250ml.bag @ 5 MCG/MIN 1.5 mls/hr IV .Q24H [facility] Rx#: [id number] Pressure Bag 45 108 24 Intake, IV Titration 5.040 98.186 58.004 Amount Clevidipine Butyrate 25 17.6 19.4 mg In Empty Bag 1 bag @ 1 MG/HR 2 mls/hr IV .Q24H [facility] Rx#:[id number] Insulin Regular 100 unit 5.040 4.103 10.104 In Sodium Chloride 0.9% 100 ml @ Per Protocol IV .Q0M [facility] Rx#:[id number] Nitroglycerin-D5w Pmx 50 28.5 mg In Dextrose/Water 1 250ml.bag @ 5 MCG/MIN 1.5 mls/hr IV .Q24H [facility] Rx#: [id number] Propofol 1,000 mg In 76.483 Empty Bag 1 bag @ Titrate IV .Q0M [facility] Rx#: [id number] Output: Chest Tube Drainage 230 230 70 Left Pleural/Mediastinal 230 230 70 Urine 1970 2100 425 Estimated Blood Loss 400 Other: Voiding Method Indwelling Catheter Indwelling Catheter ABP, PAP, CO, CI - Last Documented Arterial Blood Pressure 114/77 Pulmonary Artery Pressure 14/7 Cardiac Output 6.2 Cardiac Index 3.5 - Constitutional General appearance: Present: cooperative, no acute distress - Respiratory Details: Lungs sounds diminished bilaterally. Respirations even, nonlabored. Currently on 3 L nasal cannula with oxygen saturation 98%. Able to achieve 1000 mL on her incentive spirometry. Mediastinal/left pleural chest tube to continuous wall suction, 140 mL serosanguineous drainage overnight, 500 mL since surgery, no air leaks present. - Cardiovascular Details: S1, S2 present. Regular rate and rhythm, sinus rhythm on telemetry. Chest sternum stable. Palpable peripheral pulses bilaterally. No edema present. No calf pain or tenderness noted. Right internal jugular [place]/Cordis, right radial arterial line present. Last CO/CI 6.5/3.6 on no inotropes or pressors. Heart hugger in place with patient demonstrating appropriate use. Antiembolism stockings, SCDs present. - Gastrointestinal Gastrointestinal Comment(s): Abdomen soft, nontender, nondistended. Hypoactive bowel sounds present 4 quadrants. Tolerating clear liquids. Positive belching, negative flatus. - Genitourinary Genitourinary Comment(s): Simpson present draining clear, yellow urine. Output 100-250 mL per hour overnight. - Integumentary Integumentary Comment(s): Skin is warm and dry with evidence of good perfusion. Anterior chest incision well approximated and covered with dry intact dressing. - Neurologic Neurologic: Present: CNII-XII intact - Musculoskeletal Musculoskeletal: Present: gait normal, strength equal bilaterally - Psychiatric Psychiatric: Present: A&O x's 3, appropriate affect, intact judgment & insight - Allied health notes Allied health notes reviewed: nursing - Labs CBC & Chem 7: 01/31/18 05:30 01/31/18 05:30 Labs: Abnormal Lab Results - Last 24 Hours (Table) 01/25/18 01/30/18 01/30/18 Range/Units 06:31 13:17 13:17 WBC (3.8-10.6) k/uL RBC 3.47 L (3.80-5.40) m/uL Hgb 10.7 L D (11.4-16.0) gm/dL Hct 31.7 L (34.0-46.0) % PT (9.0-12.0) sec INR (<1.2) APTT (22.0-30.0) sec ABG pH (7.35-7.45) ABG pCO2 (35-45) mmHg ABG pO2 (83-108) mmHg ABG Total CO2 (19-24) mmol/L ABG O2 Saturation (94-97) % Chloride 110 H (98-107) mmol/L POC Glucose (mg/dL) (75-99) mg/dL Calcium 8.0 L (8.4-10.2) mg/dL AST (14-36) U/L Total Protein 5.1 L (6.3-8.2) g/dL Albumin 3.1 L (3.5-5.0) g/dL Crossmatch See Detail 01/30/18 01/30/18 01/30/18 Range/Units 13:17 13:44 15:16 WBC (3.8-10.6) k/uL RBC (3.80-5.40) m/uL Hgb (11.4-16.0) gm/dL Hct (34.0-46.0) % PT 12.6 H (9.0-12.0) sec INR 1.2 H (<1.2) APTT 32.4 H (22.0-30.0) sec ABG pH (7.35-7.45) ABG pCO2 (35-45) mmHg ABG pO2 369 H (83-108) mmHg ABG Total CO2 25 H (19-24) mmol/L ABG O2 Saturation 100.0 H (94-97) % Chloride (98-107) mmol/L POC Glucose (mg/dL) 135 H (75-99) mg/dL Calcium (8.4-10.2) mg/dL AST (14-36) U/L Total Protein (6.3-8.2) g/dL Albumin (3.5-5.0) g/dL Crossmatch 01/30/18 01/30/18 01/30/18 Range/Units 16:10 16:11 16:40 WBC (3.8-10.6) k/uL RBC (3.80-5.40) m/uL Hgb (11.4-16.0) gm/dL Hct (34.0-46.0) % PT (9.0-12.0) sec INR (<1.2) APTT (22.0-30.0) sec ABG pH 7.34 L (7.35-7.45) ABG pCO2 46 H (35-45) mmHg ABG pO2 (83-108) mmHg ABG Total CO2 26 H (19-24) mmol/L ABG O2 Saturation 97.6 H (94-97) % Chloride (98-107) mmol/L POC Glucose (mg/dL) 175 H 156 H (75-99) mg/dL Calcium (8.4-10.2) mg/dL AST (14-36) U/L Total Protein (6.3-8.2) g/dL Albumin (3.5-5.0) g/dL Crossmatch 01/30/18 01/30/18 01/30/18 Range/Units 17:09 18:08 18:59 WBC (3.8-10.6) k/uL RBC (3.80-5.40) m/uL Hgb (11.4-16.0) gm/dL Hct (34.0-46.0) % PT (9.0-12.0) sec INR (<1.2) APTT (22.0-30.0) sec ABG pH (7.35-7.45) ABG pCO2 (35-45) mmHg ABG pO2 (83-108) mmHg ABG Total CO2 (19-24) mmol/L ABG O2 Saturation (94-97) % Chloride (98-107) mmol/L POC Glucose (mg/dL) 161 H 137 H 117 H (75-99) mg/dL Calcium (8.4-10.2) mg/dL AST (14-36) U/L Total Protein (6.3-8.2) g/dL Albumin (3.5-5.0) g/dL Crossmatch 01/30/18 01/30/18 01/30/18 Range/Units 20:06 20:29 21:02 WBC 10.9 H (3.8-10.6) k/uL RBC (3.80-5.40) m/uL Hgb (11.4-16.0) gm/dL Hct (34.0-46.0) % PT (9.0-12.0) sec INR (<1.2) APTT (22.0-30.0) sec ABG pH (7.35-7.45) ABG pCO2 (35-45) mmHg ABG pO2 (83-108) mmHg ABG Total CO2 (19-24) mmol/L ABG O2 Saturation (94-97) % Chloride (98-107) mmol/L POC Glucose (mg/dL) 101 H 118 H (75-99) mg/dL Calcium (8.4-10.2) mg/dL AST (14-36) U/L Total Protein (6.3-8.2) g/dL Albumin (3.5-5.0) g/dL Crossmatch 01/30/18 01/30/18 01/31/18 Range/Units 22:06 23:12 00:14 WBC (3.8-10.6) k/uL RBC (3.80-5.40) m/uL Hgb (11.4-16.0) gm/dL Hct (34.0-46.0) % PT (9.0-12.0) sec INR (<1.2) APTT (22.0-30.0) sec ABG pH (7.35-7.45) ABG pCO2 (35-45) mmHg ABG pO2 (83-108) mmHg ABG Total CO2 (19-24) mmol/L ABG O2 Saturation (94-97) % Chloride (98-107) mmol/L POC Glucose (mg/dL) 144 H 144 H 116 H (75-99) mg/dL Calcium (8.4-10.2) mg/dL AST (14-36) U/L Total Protein (6.3-8.2) g/dL Albumin (3.5-5.0) g/dL Crossmatch 01/31/18 01/31/18 01/31/18 Range/Units 00:20 01:01 01:11 WBC (3.8-10.6) k/uL RBC (3.80-5.40) m/uL Hgb (11.4-16.0) gm/dL Hct (34.0-46.0) % PT (9.0-12.0) sec INR (<1.2) APTT (22.0-30.0) sec ABG pH (7.35-7.45) ABG pCO2 (35-45) mmHg ABG pO2 (83-108) mmHg ABG Total CO2 (19-24) mmol/L ABG O2 Saturation (94-97) % Chloride (98-107) mmol/L POC Glucose (mg/dL) 118 H 120 H 132 H (75-99) mg/dL Calcium (8.4-10.2) mg/dL AST (14-36) U/L Total Protein (6.3-8.2) g/dL Albumin (3.5-5.0) g/dL Crossmatch 01/31/18 01/31/18 01/31/18 Range/Units 02:18 03:06 04:16 WBC (3.8-10.6) k/uL RBC (3.80-5.40) m/uL Hgb (11.4-16.0) gm/dL Hct (34.0-46.0) % PT (9.0-12.0) sec INR (<1.2) APTT (22.0-30.0) sec ABG pH (7.35-7.45) ABG pCO2 (35-45) mmHg ABG pO2 (83-108) mmHg ABG Total CO2 (19-24) mmol/L ABG O2 Saturation (94-97) % Chloride (98-107) mmol/L POC Glucose (mg/dL) 118 H 132 H 109 H (75-99) mg/dL Calcium (8.4-10.2) mg/dL AST (14-36) U/L Total Protein (6.3-8.2) g/dL Albumin (3.5-5.0) g/dL Crossmatch 01/31/18 01/31/18 01/31/18 Range/Units 05:30 06:11 08:02 WBC (3.8-10.6) k/uL RBC (3.80-5.40) m/uL Hgb (11.4-16.0) gm/dL Hct (34.0-46.0) % PT (9.0-12.0) sec INR (<1.2) APTT (22.0-30.0) sec ABG pH (7.35-7.45) ABG pCO2 (35-45) mmHg ABG pO2 (83-108) mmHg ABG Total CO2 (19-24) mmol/L ABG O2 Saturation (94-97) % Chloride (98-107) mmol/L POC Glucose (mg/dL) 125 H 206 H (75-99) mg/dL Calcium (8.4-10.2) mg/dL AST 40 H (14-36) U/L Total Protein (6.3-8.2) g/dL Albumin (3.5-5.0) g/dL Crossmatch 01/31/18 01/31/18 Range/Units 09:46 12:15 WBC (3.8-10.6) k/uL RBC (3.80-5.40) m/uL Hgb (11.4-16.0) gm/dL Hct (34.0-46.0) % PT (9.0-12.0) sec INR (<1.2) APTT (22.0-30.0) sec ABG pH (7.35-7.45) ABG pCO2 (35-45) mmHg ABG pO2 (83-108) mmHg ABG Total CO2 (19-24) mmol/L ABG O2 Saturation (94-97) % Chloride (98-107) mmol/L POC Glucose (mg/dL) 124 H 112 H (75-99) mg/dL Calcium (8.4-10.2) mg/dL AST (14-36) U/L Total Protein (6.3-8.2) g/dL Albumin (3.5-5.0) g/dL Crossmatch - Imaging and Cardiology Chest x-ray: report reviewed, image reviewed Assessment and Plan (1) Alcohol dependence, daily use Current Visit: Yes Status: Chronic Code(s): F10.20 - ALCOHOL DEPENDENCE, UNCOMPLICATED SNOMED Code(s): 107157583 (2) Asthma Current Visit: Yes Status: Chronic Code(s): J45.909 - UNSPECIFIED ASTHMA, UNCOMPLICATED SNOMED Code(s): 891380908 (3) Coronary artery disease Current Visit: Yes Status: Chronic Code(s): I25.10 - ATHSCL HEART DISEASE OF [place] CORONARY ARTERY W/O ANG PCTRS SNOMED Code(s): 18994108 (4) History of hypertension Current Visit: Yes Status: Chronic Code(s): Z86.79 - PERSONAL HISTORY OF OTHER DISEASES OF THE CIRCULATORY SYSTEM SNOMED Code(s): 285921697 (5) Hyperlipidemia Current Visit: Yes Status: Chronic Code(s): E78.5 - HYPERLIPIDEMIA, UNSPECIFIED SNOMED Code(s): 81529395 Plan: 1. Continue aspirin, statin, Plavix, beta elias therapy. Will increase beta elias therapy as tolerated. Increase to 25 mg twice daily today. 2. Wean Cleviprex as tolerated. 3. Wean O2 as tolerated. Encourage incentive spirometry 10 times every hour while awake. 4. Will monitor daily labs and chest x-rays. Electrolyte replacement per protocol. 5. Pain controlled current medication regimen. Will add Toradol. 6. Insulin per primary care service. 7. GI prophylaxis with Protonix. DVT prophylaxis with subcu heparin, SCDs. 8. Mediastinal chest tube discontinued without incident. Left pleural chest tube will be discontinued later today versus tomorrow dependent on amount of drainage. 9. Discontinue [place]. Connected [place] to continuous CVP monitoring. 10. Increase activity, ambulate in hallway. PT/OT/cardiac rehab following. 11. More recommendations to follow. Time with Patient: Greater than 30
[2018-01-31] MEDS ORDERED: BISACODYL 10 MG SUPP RECTAL PRN (12:48)
[2018-01-31] MEDS ORDERED: MAGNESIUM HYDROXIDE 2,400 MG/10 ML CUP PO PRN (12:48)
[2018-01-31] MEDS: INSULIN ASPART 100 UNIT/ML 1 ML 10 ML VIAL SQ SCH ×3 (15:34→20:58)
[2018-01-31 17:16] LABS: Glucose,Whole Blood 128 mg/dL (75-99)
[2018-01-31] MEDS: HYDROcodone/APAP 5-325MG 1 EACH TAB PO PRN (19:29)
[2018-01-31] MEDS: THIAMINE 100 MG TAB PO SCH (20:57)
[2018-01-31] MEDS: SENNOSIDES-DOCUSATE SODIUM 1 EACH TAB PO SCH (20:58)
[2018-01-31] MEDS: METOPROLOL TARTRATE 25 MG TAB PO SCH (20:58)
[2018-01-31 21:16] LABS: Glucose,Whole Blood 125 mg/dL (75-99)
[2018-02-01] MEDS: HYDROcodone/APAP 5-325MG 1 EACH TAB PO PRN ×2 (00:45→16:23)
[2018-02-01] MEDS: KETOROLAC 30 MG/ML 1 ML VIAL IVP SCH ×5 (00:46→22:59)
[2018-02-01 04:57] LABS: Basophils % (A) 0 %; Eosinophils # (A) 0.1 k/uL (0-0.7); Eosinophils % (A) 2 %; HCT 33.9 % (34.0-46.0); HGB 11.2 gm/dL (11.4-16.0); Lymphocytes # (A) 1.2 k/uL (1.0-4.8); Lymphocytes % (A) 15 %; MCHC 33.1 g/dL (31.0-37.0); MCV 93.8 fL (80.0-100.0); Mean Platelet Volume 7.8; Monocytes # (A) 0.6 k/uL (0-1.0); Monocytes % (A) 7 %; Neutrophils # (A) 6.3 k/uL (1.3-7.7); Neutrophils % (A) 75 %; Platelet Count 164 k/uL (150-450); RBC 3.61 m/uL (3.80-5.40); RDW 12.4 % (11.5-15.5); WBC 8.3 k/uL (3.8-10.6)
[2018-02-01 05:46] LABS: Albumin 3.3 g/dL (3.5-5.0); Anion Gap 7 mmol/L; Calcium 8.8 mg/dL (8.4-10.2); Carbon Dioxide 27 mmol/L (22-30); Chloride 106 mmol/L (98-107); Glucose 106 mg/dL (74-99); Sodium 140 mmol/L (137-145); Total Bilirubin 0.8 mg/dL (0.2-1.3); Total Protein 5.9 g/dL (6.3-8.2)
[2018-02-01 05:52] LABS: ALT 24 U/L (9-52); AST 24 U/L (14-36); Blood Urea Nitrogen 11 mg/dL (7-17); Magnesium 2.1 mg/dL (1.6-2.3); Phosphorus 3.5 mg/dL (2.5-4.5); Potassium 4.6 mmol/L (3.5-5.1)
[2018-02-01 05:53] LABS: Alkaline Phosphatase 40 U/L (38-126)
[2018-02-01 07:01] LABS: Glucose,Whole Blood 93 mg/dL (75-99)
[2018-02-01] MEDS: PANTOPRAZOLE 40 MG TABLET PO SCH (07:27)
[2018-02-01] MEDS: INSULIN ASPART 100 UNIT/ML 1 ML 10 ML VIAL SQ SCH ×4 (07:27→20:36)
[2018-02-01] MEDS: HEPARIN SODIUM,PORCINE 5,000 UNIT/ML 1 ML VIAL SQ SCH ×3 (07:27→20:31)
[2018-02-01] MEDS: IPRATROPIUM-ALBUTEROL 3 ML NEB INHALATION SCH ×4 (08:20→20:24)
--- NOTE | 2018-02-01 08:28 | XR ---
EXAMINATION TYPE: XR chest 1V portable DATE OF EXAM: 02/01/2018 Comparison: 01/31/2018 Clinical History: 52-year-old female Post op CABG Findings: Right IJ sheath remains in place with removal of the [place]-Sergio catheter. Median sternotomy wires with postoperative clips in the mediastinum. Heart remains borderline enlarged with patchy left basilar o pacity likely trace left effusion. Left-sided chest tube remains in place without appreciable pneumot horax. Mediastinal drains have been removed. Impression: Left-sided chest tube without appreciable pneumothorax. Similar trace left effusion with some left ba silar atelectasis. Right IJ sheath remains.
[2018-02-01] MEDS: METOPROLOL TARTRATE 25 MG TAB PO SCH (08:44)
[2018-02-01] MEDS: ATORVASTATIN 40 MG TAB PO SCH (08:44)
[2018-02-01] MEDS: CLOPIDOGREL 75 MG TAB PO SCH (08:44)
[2018-02-01] MEDS: ASPIRIN 325 MG TAB PO SCH (08:44)
--- NOTE | 2018-02-01 09:10 | P.PN ---
Subjective Progress Note Date: 02/01/18 This is a 52-year-old female who is status post I to coronary bypass surgery with the ARMSTRONG graft to LAD and junk graft to the diagonal. Patient is sitting up in the chair and seems to be free of any significant chest pain. She was able to ablate last night. She is maintaining sinus rhythm. No arrhythmias are noted. Chest x-ray showed small left-sided pleural effusion. Left chest tube is still in place. Lungs show some diminished breath sounds at bases. Heart is regular. Overall patient seemed to be doing well. Lab work showed normal BUN/creatinine Objective - Vital Signs Vital signs: Vital Signs Temp 98.0 F 01/31/18 20:00 Pulse 94 02/01/18 08:31 Resp 13 02/01/18 04:00 BP 112/81 02/01/18 04:00 Pulse Ox 98 02/01/18 04:00 Intake & Output 01/31/18 02/01/18 02/01/18 18:59 06:59 18:59 Intake Total 1065.004 422 26 Output Total 1181 1166 101 Balance -115.996 -744 -75 Weight 84.9 kg 86 kg Intake: IV 767 422 26 ACETAMINOPHEN IV (For NPO 100 ) 1,000 mg In Empty Bag 1 bag @ 400 mls/hr IVPB Q6HR [facility] Rx#:[id number] CO/CI 40 LR 440 350 20 Magnesium Sulfate-D5w Pmx 100 1 gm In Dextrose/Water 1 100ml.bag @ 100 mls/hr IVPB ONCE ONE Rx#: [id number] Pressure Bag 87 72 6 Intake, IV Titration 58.004 Amount Clevidipine Butyrate 25 19.4 mg In Empty Bag 1 bag @ 1 MG/HR 2 mls/hr IV .Q24H [facility] Rx#:[id number] Insulin Regular 100 unit 10.104 In Sodium Chloride 0.9% 100 ml @ Per Protocol IV .Q0M [facility] Rx#:[id number] Nitroglycerin-D5w Pmx 50 28.5 mg In Dextrose/Water 1 250ml.bag @ 5 MCG/MIN 1.5 mls/hr IV .Q24H [facility] Rx#: [id number] Oral 240 Output: Chest Tube Drainage 76 16 80 Left Lateral Chest 6 16 80 Left Pleural/Mediastinal 70 Urine 1105 1150 21 Other: Voiding Method Indwelling Catheter Indwelling Catheter Indwelling Catheter ABP, PAP, CO, CI - Last Documented Arterial Blood Pressure 119/67 Pulmonary Artery Pressure 25/13 Cardiac Output 6.2 Cardiac Index 3.5 - Exam GENERAL EXAM: Patient is alert and oriented and doesn't appear to be in any acute distress HEENT: Normocephalic. Normal reaction of pupils, equal size, normal range of extraocular motion. No erythema or exudates in the throat. NECK: No masses, no nuchal rigidity. CHEST: No chest wall deformity. LUNGS: Equal air entry with no crackles or wheeze. HEART: S1 and S2 normal ABDOMEN: No hepatosplenomegaly, normal bowel sounds, no guarding or rigidity. SKIN: No rashes CENTRAL NERVOUS SYSTEM: No focal deficits. EXTREMITIES: No cyanosis, clubbing or edema. - Labs CBC & Chem 7: 02/01/18 04:40 02/01/18 05:20 Labs: Abnormal Lab Results - Last 24 Hours (Table) 01/31/18 01/31/18 01/31/18 Range/Units 09:46 12:15 17:13 RBC (3.80-5.40) m/uL Hgb (11.4-16.0) gm/dL Hct (34.0-46.0) % Glucose (74-99) mg/dL POC Glucose (mg/dL) 124 H 112 H 128 H (75-99) mg/dL Total Protein (6.3-8.2) g/dL Albumin (3.5-5.0) g/dL 01/31/18 02/01/18 02/01/18 Range/Units 21:13 04:40 05:20 RBC 3.61 L (3.80-5.40) m/uL Hgb 11.2 L (11.4-16.0) gm/dL Hct 33.9 L (34.0-46.0) % Glucose 106 H (74-99) mg/dL POC Glucose (mg/dL) 125 H (75-99) mg/dL Total Protein 5.9 L (6.3-8.2) g/dL Albumin 3.3 L (3.5-5.0) g/dL Assessment and Plan (1) S/P CABG (coronary artery bypass graft) Current Visit: Yes Status: Acute Code(s): Z95.1 - PRESENCE OF AORTOCORONARY BYPASS GRAFT SNOMED Code(s): 330526612 (2) Coronary artery disease Current Visit: Yes Status: Chronic Code(s): I25.10 - ATHSCL HEART DISEASE OF [place] CORONARY ARTERY W/O ANG PCTRS SNOMED Code(s): 03061954 (3) History of hypertension Current Visit: Yes Status: Chronic Code(s): Z86.79 - PERSONAL HISTORY OF OTHER DISEASES OF THE CIRCULATORY SYSTEM SNOMED Code(s): 592333905 (4) Hyperlipidemia Current Visit: Yes Status: Chronic Code(s): E78.5 - HYPERLIPIDEMIA, UNSPECIFIED SNOMED Code(s): 82488838 Plan: Patient is progressing well. No arrhythmias. Chest x-ray shows slight effusion. Increase activity. Incentive spirometry
[2018-02-01] MEDS ORDERED: METOPROLOL TARTRATE 25 MG TAB PO STA (09:41)
[2018-02-01] MEDS ORDERED: FUROSEMIDE 10 MG/ML 2 ML VIAL IV ONE (09:42)
--- NOTE | 2018-02-01 10:31 | P.PN ---
Subjective Progress Note Date: 02/01/18 This is a 52-year-old female with a known past medical history of symptomatic coronary disease, hypertension, asthma, hyperlipidemia, osteoarthritis and daily alcohol use of 2-3 drinks per day. Patient was hospitalized January 24 for chest pain and at that time she was found to have a positive stress test underwent heart catheterization which demonstrated ostial diagonal stenosis of 99%, proximal LAD stenosis after the diagonal of 70% and mid RCA stenosis of 20- 30%. she was evaluated by the cardiothoracic surgeon and decided to proceed with coronary artery bypass grafting. Patient is postop day #0 status post off- pump CABG 2. Patient currently in the ICU intubated and sedated. She is starting to wake up. She has 2 chest tubes. No evidence of distress. Vitals are stable. We have been consulted for medical management. 01/31/2018 patient was extubated yesterday evening. She may have chest tube removed today. She's been up and sitting at bedside chair. They're working on pain management. Pain is better controlled at this time. Patient also had some nausea now resolved with Zofran. Patient is belching. She is not passing gas this time bowel movement yet. Denies any shortness of breath On 02/01/2018 patient is currently resting in bed. Patient is alert and oriented 3. Patient has some complaints of mild pain. Per cardiothoracic team will remove chest tube. patient has been using incetive spirometer and ambulating. Patient denies shortness of breath cough. Patient denies nausea vomiting or diarrhea. Patient denies any urinary burning Objective - Vital Signs Vital signs: Vital Signs Temp 98.0 F 01/31/18 20:00 Pulse 94 02/01/18 08:31 Resp 13 02/01/18 04:00 BP 112/81 02/01/18 04:00 Pulse Ox 98 02/01/18 04:00 Intake & Output 01/31/18 02/01/18 02/01/18 18:59 06:59 18:59 Intake Total 1065.004 422 26 Output Total 1181 1166 101 Balance -115.996 -744 -75 Weight 84.9 kg 86 kg Intake: IV 767 422 26 ACETAMINOPHEN IV (For NPO 100 ) 1,000 mg In Empty Bag 1 bag @ 400 mls/hr IVPB Q6HR [facility] Rx#:[id number] CO/CI 40 LR 440 350 20 Magnesium Sulfate-D5w Pmx 100 1 gm In Dextrose/Water 1 100ml.bag @ 100 mls/hr IVPB ONCE ONE Rx#: [id number] Pressure Bag 87 72 6 Intake, IV Titration 58.004 Amount Clevidipine Butyrate 25 19.4 mg In Empty Bag 1 bag @ 1 MG/HR 2 mls/hr IV .Q24H [facility] Rx#:[id number] Insulin Regular 100 unit 10.104 In Sodium Chloride 0.9% 100 ml @ Per Protocol IV .Q0M [facility] Rx#:[id number] Nitroglycerin-D5w Pmx 50 28.5 mg In Dextrose/Water 1 250ml.bag @ 5 MCG/MIN 1.5 mls/hr IV .Q24H [facility] Rx#: [id number] Oral 240 Output: Chest Tube Drainage 76 16 80 Left Lateral Chest 6 16 80 Left Pleural/Mediastinal 70 Urine 1105 1150 21 Other: Voiding Method Indwelling Catheter Indwelling Catheter Indwelling Catheter ABP, PAP, CO, CI - Last Documented Arterial Blood Pressure 119/67 Pulmonary Artery Pressure 25/13 Cardiac Output 6.2 Cardiac Index 3.5 - Exam Head normocephalic Neck supple Lungs clear to auscultation bilaterally no wheezing or crackles Heart regular rate and rhythm S1-S2, no rub or gallop Abdomen is soft nontender nondistended positive bowel sounds no hepatosplenomegaly Extremities no edema Neuro alert and orientated to 3 - Labs CBC & Chem 7: 02/01/18 04:40 02/01/18 05:20 Labs: Abnormal Lab Results - Last 24 Hours (Table) 01/31/18 01/31/18 01/31/18 Range/Units 12:15 17:13 21:13 RBC (3.80-5.40) m/uL Hgb (11.4-16.0) gm/dL Hct (34.0-46.0) % Glucose (74-99) mg/dL POC Glucose (mg/dL) 112 H 128 H 125 H (75-99) mg/dL Total Protein (6.3-8.2) g/dL Albumin (3.5-5.0) g/dL 02/01/18 02/01/18 Range/Units 04:40 05:20 RBC 3.61 L (3.80-5.40) m/uL Hgb 11.2 L (11.4-16.0) gm/dL Hct 33.9 L (34.0-46.0) % Glucose 106 H (74-99) mg/dL POC Glucose (mg/dL) (75-99) mg/dL Total Protein 5.9 L (6.3-8.2) g/dL Albumin 3.3 L (3.5-5.0) g/dL Assessment and Plan Assessment: 1. Symptomatic coronary artery disease status CABG 2 vessels. Postop day #3 patient will be transferred out of the intensive care unit today 2. Essential hypertension 3. History of asthma 4. History of hyperlipidemia continue statin 5. Daily alcohol use of 2-3 drinks daily. GI prophylaxis protonix and DVT prophylaxis subcu heparin I performed an examination of the patient and discussed their management with the Nurse Practitioner. I have reviewed the Nurse Practitioner's notes and agree with the documented findings and plan of care
--- NOTE | 2018-02-01 10:58 | P.PN ---
Subjective Progress Note Date: 02/01/18 Principal diagnosis: Coronary artery disease status post coronary artery bypass grafting This a very pleasant 52-year-old female patient who follows with Dr. Svetlana garcia as her primary care physician. She has a history of hypertension, chronic bronchial asthma, hyperlipidemia, daily alcohol use of 2-3 drinks per day. She presented here to the emergency room on 01/30/2018 with complaints of chest tightness radiation radiating into her left jaw. She had subsequently undergone cardiac catheterization which revealed ostial diagonal stenosis of 99% , proximal LAD stenosis of 70%, mid RCA stenosis of 20-30%. She had subsequently undergone 2 vessel coronary artery bypass grafting yesterday. She is seen today in follow-up in the intensive care unit. She is currently sitting up in a chair at the bedside. She is awake and alert in no acute distress. Her pain is fairly well controlled. She is working well with the incentive spirometer. Chest x-ray shows atelectasis of the left lung base. Left pleural/mediastinal chest tube in place. She is maintaining good O2 saturations in the 90s on 3 L/m per nasal cannula. She has an IV of lactated Ringer's at 50 MLS per hour and currently on a insulin drip at 1 unit per hour. Cardiac output 6.2. Cardiac index is 3.5. PA pressure of 14/7 with a mean of 9 and right IJ [place]-Sergio catheter in place. Heart hugger in place. White count 9.7. Hemoglobin 12.6. Platelets 209,000. Creatinine 0.57. The patient seen again today 02/01/2018 in follow-up in the intensive care unit. She is currently resting quite comfortably in bed. She is awake and alert in no acute distress. She is maintaining good O2 saturations in the upper 90s on room air. Chest x-ray shows left-sided chest tube without appreciable pneumothorax. There is a trace left effusion and some left basilar atelectasis. Right IJ in place. She is currently afebrile. White count 8.3. Hemoglobin 11.2. Creatinine 0.64. Objective - Vital Signs Vital signs: Vital Signs Temp 98.0 F 01/31/18 20:00 Pulse 94 02/01/18 08:31 Resp 13 02/01/18 04:00 BP 112/81 02/01/18 04:00 Pulse Ox 98 02/01/18 04:00 Intake & Output 01/31/18 02/01/18 02/01/18 18:59 06:59 18:59 Intake Total 1065.004 422 26 Output Total 1181 1166 101 Balance -115.996 -744 -75 Weight 84.9 kg 86 kg Intake: IV 767 422 26 ACETAMINOPHEN IV (For NPO 100 ) 1,000 mg In Empty Bag 1 bag @ 400 mls/hr IVPB Q6HR [facility] Rx#:[id number] CO/CI 40 LR 440 350 20 Magnesium Sulfate-D5w Pmx 100 1 gm In Dextrose/Water 1 100ml.bag @ 100 mls/hr IVPB ONCE ONE Rx#: [id number] Pressure Bag 87 72 6 Intake, IV Titration 58.004 Amount Clevidipine Butyrate 25 19.4 mg In Empty Bag 1 bag @ 1 MG/HR 2 mls/hr IV .Q24H [facility] Rx#:[id number] Insulin Regular 100 unit 10.104 In Sodium Chloride 0.9% 100 ml @ Per Protocol IV .Q0M [facility] Rx#:[id number] Nitroglycerin-D5w Pmx 50 28.5 mg In Dextrose/Water 1 250ml.bag @ 5 MCG/MIN 1.5 mls/hr IV .Q24H [facility] Rx#: [id number] Oral 240 Output: Chest Tube Drainage 76 16 80 Left Lateral Chest 6 16 80 Left Pleural/Mediastinal 70 Urine 1105 1150 21 Other: Voiding Method Indwelling Catheter Indwelling Catheter Indwelling Catheter ABP, PAP, CO, CI - Last Documented Arterial Blood Pressure 119/67 Pulmonary Artery Pressure 25/13 Cardiac Output 6.2 Cardiac Index 3.5 - Exam - Constitutional General appearance: Present: average body habitus, no acute distress, on room air. - EENT Eyes: Present: EOMI, PERRLA ENT: Present: hearing grossly normal Ears: bilateral: normal - Neck Details: Right IJ in place Neck: Present: normal ROM Carotids: bilateral: upstroke normal Thyroid: bilateral: normal size - Respiratory Details: Chest tube in place Respiratory: bilateral: rales, rhonchi - Cardiovascular Rhythm: regular Heart sounds: normal: S1, S2 - Gastrointestinal General gastrointestinal: Present: decreased bowel sounds - Integumentary Integumentary: Present: normal turgor - Neurologic Neurologic: Present: CNII-XII intact - Musculoskeletal Musculoskeletal: Present: generalized weakness - Psychiatric Psychiatric: Present: A&O x's 3, appropriate affect, intact judgment & insight - Labs CBC & Chem 7: 02/01/18 04:40 02/01/18 05:20 Labs: Abnormal Lab Results - Last 24 Hours (Table) 01/31/18 01/31/18 01/31/18 Range/Units 12:15 17:13 21:13 RBC (3.80-5.40) m/uL Hgb (11.4-16.0) gm/dL Hct (34.0-46.0) % Glucose (74-99) mg/dL POC Glucose (mg/dL) 112 H 128 H 125 H (75-99) mg/dL Total Protein (6.3-8.2) g/dL Albumin (3.5-5.0) g/dL 02/01/18 02/01/18 Range/Units 04:40 05:20 RBC 3.61 L (3.80-5.40) m/uL Hgb 11.2 L (11.4-16.0) gm/dL Hct 33.9 L (34.0-46.0) % Glucose 106 H (74-99) mg/dL POC Glucose (mg/dL) (75-99) mg/dL Total Protein 5.9 L (6.3-8.2) g/dL Albumin 3.3 L (3.5-5.0) g/dL Assessment and Plan Assessment: Impression: #1 Coronary artery disease status post coronary artery bypass grafting 2. Postoperative day #2. #2 History of hypertension. #3 Hyperlipidemia. #4 History of asthma. #5 Daily alcohol use. Plan: The patient was seen and evaluated by Dr. Gonzales. She is currently stable from the pulmonary and critical care standpoint. Chest x-ray and labs were reviewed. Continue updraft treatments. Increase her activity as tolerated. Heparin for DVT prophylaxis. We will continue to follow and make further recommendations based on her clinical status. I, the cosigning physician, performed a history & physical examination of the patient. Lungs sounds with crackles in the bilateral posterior bases. Maintaining good O2 saturations in the 90s on room air. I discussed the assessment and plan of care with my nurse practitioner, Litzy Floresita. I attest to the above note as dictated by her.
--- NOTE | 2018-02-01 11:14 | P.PN ---
Subjective Progress Note Date: 02/01/18 Principal diagnosis: Symptomatic multivessel coronary artery disease, hypertension, hyperlipidemia, history of asthma, osteoarthritis and daily alcohol use, drinking 2-3 alcoholic beverages per day. POD #2 off-pump coronary artery bypass graft 2, left internal mammary artery to the left anterior descending coronary artery and jump Y left internal mammary artery graft to the first obtuse marginal coronary artery branch. Intraoperative transesophageal echocardiogram performed by anesthesia. Patient is currently sitting up to the bedside chair. She is in no acute distress. Currently rates her pain 4 out of 10 on the pain scale to her left pleural chest tube insertion site. She denies any complaints of shortness of breath. She remains hemodynamically stable. She reports she ambulated in the intensive care unit in all ways 2 times yesterday. Objective - Vital Signs Vital signs: Vital Signs Temp 98.0 F 01/31/18 20:00 Pulse 94 02/01/18 08:31 Resp 13 02/01/18 04:00 BP 112/81 02/01/18 04:00 Pulse Ox 98 02/01/18 04:00 Intake & Output 01/31/18 02/01/18 02/01/18 18:59 06:59 18:59 Intake Total 1065.004 422 26 Output Total 1181 1166 101 Balance -115.996 -744 -75 Weight 84.9 kg 86 kg Intake: IV 767 422 26 ACETAMINOPHEN IV (For NPO 100 ) 1,000 mg In Empty Bag 1 bag @ 400 mls/hr IVPB Q6HR [facility] Rx#:[id number] CO/CI 40 LR 440 350 20 Magnesium Sulfate-D5w Pmx 100 1 gm In Dextrose/Water 1 100ml.bag @ 100 mls/hr IVPB ONCE ONE Rx#: [id number] Pressure Bag 87 72 6 Intake, IV Titration 58.004 Amount Clevidipine Butyrate 25 19.4 mg In Empty Bag 1 bag @ 1 MG/HR 2 mls/hr IV .Q24H [facility] Rx#:[id number] Insulin Regular 100 unit 10.104 In Sodium Chloride 0.9% 100 ml @ Per Protocol IV .Q0M [facility] Rx#:[id number] Nitroglycerin-D5w Pmx 50 28.5 mg In Dextrose/Water 1 250ml.bag @ 5 MCG/MIN 1.5 mls/hr IV .Q24H [facility] Rx#: [id number] Oral 240 Output: Chest Tube Drainage 76 16 80 Left Lateral Chest 6 16 80 Left Pleural/Mediastinal 70 Urine 1105 1150 21 Other: Voiding Method Indwelling Catheter Indwelling Catheter Indwelling Catheter ABP, PAP, CO, CI - Last Documented Arterial Blood Pressure 119/67 Pulmonary Artery Pressure 25/13 Cardiac Output 6.2 Cardiac Index 3.5 - Constitutional General appearance: Present: cooperative, no acute distress, obese - Respiratory Details: Lungs sounds essentially clear to her bilateral upper lobes, diminished bilateral bases. Respirations are symmetrical and nonlabored. Oxygen saturation are 95% on room air. She is achieving 1500 mL on her incentive spirometry. Left pleural chest tube in place to low continuous wall suction. No air leak present. Draining thin serosanguineous drainage. 80 mL output in the last 8 hours, 100 mL output in the last 24 hours. - Cardiovascular Details: Regular rhythm and tachycardic rate. S1 and S2 present, negative for S3, gallop or murmur. Sternum is stable. Bedside telemetry showing sinus tachycardia heart rate 105. No edema present. Heart hugger is in place and she is demonstrating appropriate use. Knee-high ELENITA hose and sequential compression devices in place to her bilateral lower extremities. Right IJ Cordis in place with continuous CVP monitoring, current CVP pressure 8 mmHg. - Gastrointestinal Gastrointestinal Comment(s): Abdomen is soft, nontender and nondistended. Active bowel sounds to all 4 abdominal quadrants. Tolerating oral intake. Passing flatus. - Genitourinary Genitourinary Comment(s): Simpson catheter for accurate I&O. Draining clear yellow urine. 510 mL of output in the last 8 hours. - Integumentary Integumentary Comment(s): Skin is warm and dry. No clubbing or cyanosis present. Midline sternal incision is clean, dry and well approximated. No drainage or redness present. Dressing is clean, dry and intact. - Neurologic Neurologic: Present: CNII-XII intact - Musculoskeletal Musculoskeletal: Present: gait normal, strength equal bilaterally - Psychiatric Psychiatric: Present: A&O x's 3, appropriate affect, intact judgment & insight - Allied health notes Allied health notes reviewed: nursing - Labs CBC & Chem 7: 02/01/18 04:40 02/01/18 05:20 Labs: Abnormal Lab Results - Last 24 Hours (Table) 01/31/18 01/31/18 01/31/18 Range/Units 09:46 12:15 17:13 RBC (3.80-5.40) m/uL Hgb (11.4-16.0) gm/dL Hct (34.0-46.0) % Glucose (74-99) mg/dL POC Glucose (mg/dL) 124 H 112 H 128 H (75-99) mg/dL Total Protein (6.3-8.2) g/dL Albumin (3.5-5.0) g/dL 01/31/18 02/01/18 02/01/18 Range/Units 21:13 04:40 05:20 RBC 3.61 L (3.80-5.40) m/uL Hgb 11.2 L (11.4-16.0) gm/dL Hct 33.9 L (34.0-46.0) % Glucose 106 H (74-99) mg/dL POC Glucose (mg/dL) 125 H (75-99) mg/dL Total Protein 5.9 L (6.3-8.2) g/dL Albumin 3.3 L (3.5-5.0) g/dL - Imaging and Cardiology Chest x-ray: report reviewed, image reviewed Assessment and Plan (1) Osteoarthritis Current Visit: Yes Status: Acute Code(s): M19.90 - UNSPECIFIED OSTEOARTHRITIS, UNSPECIFIED SITE SNOMED Code(s): 279943897 (2) S/P CABG (coronary artery bypass graft) Current Visit: Yes Status: Acute Code(s): Z95.1 - PRESENCE OF AORTOCORONARY BYPASS GRAFT SNOMED Code(s): 067402004 (3) Alcohol dependence, daily use Current Visit: Yes Status: Chronic Code(s): F10.20 - ALCOHOL DEPENDENCE, UNCOMPLICATED SNOMED Code(s): 216729838 (4) Asthma Current Visit: Yes Status: Chronic Code(s): J45.909 - UNSPECIFIED ASTHMA, UNCOMPLICATED SNOMED Code(s): 149657436 (5) Coronary artery disease Current Visit: Yes Status: Chronic Code(s): I25.10 - ATHSCL HEART DISEASE OF [place] CORONARY ARTERY W/O ANG PCTRS SNOMED Code(s): 18537697 (6) History of hypertension Current Visit: Yes Status: Chronic Code(s): Z86.79 - PERSONAL HISTORY OF OTHER DISEASES OF THE CIRCULATORY SYSTEM SNOMED Code(s): 336323132 (7) Hyperlipidemia Current Visit: Yes Status: Chronic Code(s): E78.5 - HYPERLIPIDEMIA, UNSPECIFIED SNOMED Code(s): 72961685 Plan: 1. Continue aspirin, statin, Plavix, beta elias therapy. Will increase metoprolol tartrate to 50 mg by mouth twice a day. 2. Removal of right IJ Cordis. 3. Encourage incentive spirometry 10 times every hour while awake. 4. Will monitor daily labs and chest x-rays. Electrolyte replacement per protocol. 5. Pain controlled current medication regimen. 6. Insulin management per primary care service. 7. GI prophylaxis with Protonix. DVT prophylaxis with subcu heparin, SCDs. 8. Discontinue Left pleural chest tube. 9. Lasix 20 mg IV 1 now. 10. Increase activity, ambulate in hallway. PT/OT/cardiac rehab following. 11. We will transfer the patient to 3 self cardiac care stepdown unit. 12. More recommendations to follow based on patient's clinical course. Time with Patient: Greater than 30
[2018-02-01 11:49] LABS: Glucose,Whole Blood 111 mg/dL (75-99)
[2018-02-01] MEDS: THIAMINE 100 MG TAB PO SCH ×2 (13:04→18:04)
[2018-02-01] MEDS: MULTIVITAMINS, THERA 1 EACH TAB PO SCH (13:04)
[2018-02-01 13:19] VITALS: BMI 31.5
[2018-02-01 16:57] LABS: Glucose,Whole Blood 146 mg/dL (75-99)
[2018-02-01] MEDS: LACTATED RINGERS 1,000 ML IV SCH (18:09)
[2018-02-01] MEDS: SENNOSIDES-DOCUSATE SODIUM 1 EACH TAB PO SCH (20:31)
[2018-02-01] MEDS: METOPROLOL TARTRATE 50 MG TAB PO SCH (20:31)
[2018-02-01 20:36] LABS: Glucose,Whole Blood 134 mg/dL (75-99)
[2018-02-02] MEDS: HYDROcodone/APAP 5-325MG 1 EACH TAB PO PRN (00:11)
[2018-02-02] MEDS: HEPARIN SODIUM,PORCINE 5,000 UNIT/ML 1 ML VIAL SQ SCH ×3 (05:19→21:15)
[2018-02-02] MEDS: KETOROLAC 30 MG/ML 1 ML VIAL IVP SCH ×4 (05:21→23:56)
--- NOTE | 2018-02-02 06:35 | XR ---
EXAMINATION TYPE: XR chest 2V DATE OF EXAM: 02/02/2018 COMPARISON: Chest x-ray from yesterday. HISTORY: Postoperative CABG progress study. TECHNIQUE: Frontal and lateral views of the chest are obtained. FINDINGS: Post-CABG changes with mediastinal clips and sternal wires is redemonstrated. There is int erval removal of right internal jugular [place]-Sergio catheter. There is interval removal of left-sided c hest tube. There is no suspicious new focal airspace opacity or pneumothorax seen. Persistent small l eft pleural effusion is seen best on lateral view with associated basilar atelectasis. The cardiac si lhouette size is stable and mildly enlarged. The osseous structures are intact. IMPRESSION: Interval removal of left-sided chest tube without sizable pneumothorax. There is persist ent mild cardiomegaly with small left pleural effusion and associated left basilar atelectasis and/or infiltrate.
[2018-02-02 07:19] LABS: Glucose,Whole Blood 110 mg/dL (75-99)
[2018-02-02] MEDS: INSULIN ASPART 100 UNIT/ML 1 ML 10 ML VIAL SQ SCH ×4 (07:33→23:55)
[2018-02-02 07:55] LABS: ALT 19 U/L (9-52); AST 19 U/L (14-36); Albumin 3.7 g/dL (3.5-5.0); Alkaline Phosphatase 58 U/L (38-126); Anion Gap 9 mmol/L; Blood Urea Nitrogen 13 mg/dL (7-17); Calcium 9.4 mg/dL (8.4-10.2); Carbon Dioxide 29 mmol/L (22-30); Chloride 104 mmol/L (98-107); Glucose 107 mg/dL (74-99); Potassium 4.5 mmol/L (3.5-5.1); Sodium 142 mmol/L (137-145); Total Bilirubin 0.6 mg/dL (0.2-1.3); Total Protein 6.4 g/dL (6.3-8.2)
[2018-02-02] MEDS: IPRATROPIUM-ALBUTEROL 3 ML NEB INHALATION SCH ×4 (07:56→19:24)
[2018-02-02 08:04] LABS: Basophils % (A) 0 %; Eosinophils # (A) 0.4 k/uL (0-0.7); Eosinophils % (A) 5 %; HCT 40.6 % (34.0-46.0); HGB 12.9 gm/dL (11.4-16.0); Lymphocytes # (A) 1.4 k/uL (1.0-4.8); Lymphocytes % (A) 16 %; MCHC 31.8 g/dL (31.0-37.0); MCV 94.3 fL (80.0-100.0); Mean Platelet Volume 7.5; Monocytes # (A) 0.5 k/uL (0-1.0); Monocytes % (A) 6 %; Neutrophils % (A) 71 %; Platelet Count 226 k/uL (150-450); RBC 4.31 m/uL (3.80-5.40); RDW 12.5 % (11.5-15.5); WBC 8.5 k/uL (3.8-10.6)
[2018-02-02] MEDS: ATORVASTATIN 40 MG TAB PO SCH (08:27)
[2018-02-02] MEDS: ASPIRIN 325 MG TAB PO SCH (08:27)
[2018-02-02] MEDS: PANTOPRAZOLE 40 MG TABLET PO SCH (08:27)
[2018-02-02] MEDS: CLOPIDOGREL 75 MG TAB PO SCH (08:28)
[2018-02-02] MEDS: METOPROLOL TARTRATE 50 MG TAB PO SCH ×2 (08:28→22:25)
--- NOTE | 2018-02-02 08:46 | P.PN ---
Subjective Progress Note Date: 02/02/18 Principal diagnosis: Coronary artery disease, status post coronary artery bypass grafting This a very pleasant 52-year-old female patient who follows with Dr. Svetlana garcia as her primary care physician. She has a history of hypertension, chronic bronchial asthma, hyperlipidemia, daily alcohol use of 2-3 drinks per day. She presented here to the emergency room on 01/30/2018 with complaints of chest tightness radiation radiating into her left jaw. She had subsequently undergone cardiac catheterization which revealed ostial diagonal stenosis of 99% , proximal LAD stenosis of 70%, mid RCA stenosis of 20-30%. She had subsequently undergone 2 vessel coronary artery bypass grafting yesterday. She is seen today in follow-up in the intensive care unit. She is currently sitting up in a chair at the bedside. She is awake and alert in no acute distress. Her pain is fairly well controlled. She is working well with the incentive spirometer. Chest x-ray shows atelectasis of the left lung base. Left pleural/mediastinal chest tube in place. She is maintaining good O2 saturations in the 90s on 3 L/m per nasal cannula. She has an IV of lactated Ringer's at 50 MLS per hour and currently on a insulin drip at 1 unit per hour. Cardiac output 6.2. Cardiac index is 3.5. PA pressure of 14/7 with a mean of 9 and right IJ Stephen-Sergio catheter in place. Heart hugger in place. White count 9.7. Hemoglobin 12.6. Platelets 209,000. Creatinine 0.57. The patient seen again today 02/01/2018 in follow-up in the intensive care unit. She is currently resting quite comfortably in bed. She is awake and alert in no acute distress. She is maintaining good O2 saturations in the upper 90s on room air. Chest x-ray shows left-sided chest tube without appreciable pneumothorax. There is a trace left effusion and some left basilar atelectasis. Right IJ in place. She is currently afebrile. White count 8.3. Hemoglobin 11.2. Creatinine 0.64. On 02/02/2018 patient seen in follow-up in the intensive care unit, she is awake and alert, sitting up in the chair, in no acute distress, room air, IVs have been hep-locked, this is postop day 3 status post coronary artery bypass grafting, today's chest x-ray has been reviewed by Dr. Gonzales, showed mild cardiomegaly with small left pleural effusion and associated atelectasis. Sinus rhythm on the monitor, lung sounds are clear, IS effort is 1750 today. Chest tubes were discontinued yesterday. Objective - Vital Signs Vital signs: Vital Signs Temp 97.9 F 02/02/18 04:00 Pulse 77 02/02/18 04:00 Resp 14 02/02/18 04:00 BP 132/96 02/02/18 04:00 Pulse Ox 95 02/02/18 04:00 Intake & Output 02/01/18 02/02/18 02/02/18 18:59 06:59 18:59 Intake Total 980 300 Output Total 1906 200 Balance -926 100 Weight 86 kg Intake: IV 44 LR 20 Pressure Bag 24 Oral 936 300 Output: Chest Tube Drainage 160 Left Lateral Chest 160 Urine 1746 200 Other: Voiding Method Indwelling Catheter Toilet ABP, PAP, CO, CI - Last Documented Arterial Blood Pressure 111/65 Pulmonary Artery Pressure 25/13 Cardiac Output 6.2 Cardiac Index 3.5 - Exam - Exam - Constitutional General appearance: Present: average body habitus, no acute distress, on room air. - EENT Eyes: Present: EOMI, PERRLA ENT: Present: hearing grossly normal Ears: bilateral: normal - Neck Details: Right IJ in place Neck: Present: normal ROM Carotids: bilateral: upstroke normal Thyroid: bilateral: normal size - Respiratory Details: Chest tube in place Respiratory: bilateral: clear - Cardiovascular Rhythm: regular Heart sounds: normal: S1, S2 - Gastrointestinal General gastrointestinal: Present: decreased bowel sounds - Integumentary Integumentary: Present: normal turgor - Neurologic Neurologic: Present: CNII-XII intact - Musculoskeletal Musculoskeletal: Present: generalized weakness - Psychiatric Psychiatric: Present: A&O x's 3, appropriate affect, intact judgment & insight - Labs CBC & Chem 7: 02/02/18 07:19 02/02/18 07:19 Labs: Abnormal Lab Results - Last 24 Hours (Table) 02/01/18 02/01/18 02/01/18 Range/Units 11:47 16:53 20:34 Glucose (74-99) mg/dL POC Glucose (mg/dL) 111 H 146 H 134 H (75-99) mg/dL 02/02/18 02/02/18 Range/Units 07:17 07:19 Glucose 107 H (74-99) mg/dL POC Glucose (mg/dL) 110 H (75-99) mg/dL Assessment and Plan Plan: #1 Coronary artery disease status post coronary artery bypass grafting 2. Postoperative day #3. #2 History of hypertension. #3 Hyperlipidemia. #4 History of asthma. #5 Daily alcohol use. Plan: Patient is doing well, today's chest x-ray was reviewed by Dr. Gonzales, shows small left-sided pleural effusion, and adjacent atelectasis. No distress, patient is on room air, lung sounds are clear, continue encouraging incentive spirometry use, deep breathing and coughing, ambulation. Continue nebulized bronchodilators I performed a history & physical examination of the patient and discussed their management with my nurse practitioner, Vinita Gordon. I reviewed the nurse practitioner's note and agree with the documented findings and plan of care. Lung sounds are positive for clear breath sounds. The findings and the impression was discussed with the patient. I attest to the documentation by the nurse practitioner. Time with Patient: Greater than 30
--- NOTE | 2018-02-02 09:49 | P.PN ---
Subjective Progress Note Date: 02/02/18 This is a 52-year-old female who is status post I to coronary bypass surgery with the ARMSTRONG graft to LAD and junk graft to the diagonal. Patient is sitting up in the chair and seems to be free of any significant chest pain. She was able to ablate last night. She is maintaining sinus rhythm. No arrhythmias are noted. Chest x-ray showed small left-sided pleural effusion. Left chest tube is still in place. Lungs show some diminished breath sounds at bases. Heart is regular. Overall patient seemed to be doing well. Lab work showed normal BUN/creatinine 02/02/2018: This patient is status post aorto coronary bypass surgery. Patient hemodynamically sweaty stable. Patient could not sleep well last night. Complains of being tired. Does not doesn't complain of much chest pain or shortness of breath. Chest x-ray showed evidence of persistent mild bradycardia megaly and small left pleural effusion associated with some eclectic phthisis. Last chest tube is removed. Overall patient condition seems to be stable. Her hemoglobin is 12.9. Electol lites are within normal limits. Renal function is normal. Patient waiting to be transferred to stepdown unit. Objective - Vital Signs Vital signs: Vital Signs Temp 97.9 F 02/02/18 04:00 Pulse 77 02/02/18 04:00 Resp 14 02/02/18 04:00 BP 132/96 02/02/18 04:00 Pulse Ox 95 02/02/18 04:00 Intake & Output 02/01/18 02/02/18 02/02/18 18:59 06:59 18:59 Intake Total 980 300 Output Total 1906 200 Balance -926 100 Weight 86 kg Intake: IV 44 LR 20 Pressure Bag 24 Oral 936 300 Output: Chest Tube Drainage 160 Left Lateral Chest 160 Urine 1746 200 Other: Voiding Method Indwelling Catheter Toilet # Voids 1 ABP, PAP, CO, CI - Last Documented Arterial Blood Pressure 111/65 Pulmonary Artery Pressure 25/13 Cardiac Output 6.2 Cardiac Index 3.5 - Exam GENERAL EXAM: Patient is alert and oriented and doesn't appear to be in any acute distress HEENT: Normocephalic. Normal reaction of pupils, equal size, normal range of extraocular motion. No erythema or exudates in the throat. NECK: No masses, no nuchal rigidity. CHEST: No chest wall deformity. LUNGS: Equal air entry with no crackles or wheeze. HEART: S1 and S2 normal ABDOMEN: No hepatosplenomegaly, normal bowel sounds, no guarding or rigidity. SKIN: No rashes CENTRAL NERVOUS SYSTEM: No focal deficits. EXTREMITIES: No cyanosis, clubbing or edema. - Labs CBC & Chem 7: 02/02/18 07:19 02/02/18 07:19 Labs: Abnormal Lab Results - Last 24 Hours (Table) 02/01/18 02/01/18 02/01/18 Range/Units 11:47 16:53 20:34 Glucose (74-99) mg/dL POC Glucose (mg/dL) 111 H 146 H 134 H (75-99) mg/dL 02/02/18 02/02/18 Range/Units 07:17 07:19 Glucose 107 H (74-99) mg/dL POC Glucose (mg/dL) 110 H (75-99) mg/dL Assessment and Plan (1) S/P CABG (coronary artery bypass graft) Current Visit: Yes Status: Acute Code(s): Z95.1 - PRESENCE OF AORTOCORONARY BYPASS GRAFT SNOMED Code(s): 865357903 (2) Coronary artery disease Current Visit: Yes Status: Chronic Code(s): I25.10 - ATHSCL HEART DISEASE OF [place] CORONARY ARTERY W/O ANG PCTRS SNOMED Code(s): 24589971 (3) History of hypertension Current Visit: Yes Status: Chronic Code(s): Z86.79 - PERSONAL HISTORY OF OTHER DISEASES OF THE CIRCULATORY SYSTEM SNOMED Code(s): 983349640 (4) Hyperlipidemia Current Visit: Yes Status: Chronic Code(s): E78.5 - HYPERLIPIDEMIA, UNSPECIFIED SNOMED Code(s): 46604986 Plan: Patient is hemodynamically stable. No arrhythmias. She is doing well except complaining of being fatigued. Waiting to be transferred to telemetry unit.
[2018-02-02] MEDS ORDERED: ACETAMINOPHEN TAB 500 MG TAB PO PRN (10:32)
--- NOTE | 2018-02-02 10:36 | P.PN ---
Subjective Progress Note Date: 02/02/18 Principal diagnosis: Symptomatic multivessel coronary artery disease, hypertension, hyperlipidemia, history of asthma, osteoarthritis and daily alcohol use, drinking 2-3 alcoholic beverages per day. POD #3 off-pump coronary artery bypass graft 2, left internal mammary artery to the left anterior descending coronary artery and jump Y left internal mammary artery graft to the first obtuse marginal coronary artery branch. Intraoperative transesophageal echocardiogram performed by anesthesia. Patient is currently sitting up to the bedside chair. She is in no acute distress. Currently denies any complaints of pain or shortness of breath. She remains hemodynamically stable. She reports she ambulated in the intensive care unit in all ways 3 times yesterday with standby assistance. Objective - Vital Signs Vital signs: Vital Signs Temp 97.9 F 02/02/18 04:00 Pulse 77 02/02/18 04:00 Resp 14 02/02/18 04:00 BP 132/96 02/02/18 04:00 Pulse Ox 95 02/02/18 04:00 Intake & Output 02/01/18 02/02/18 02/02/18 18:59 06:59 18:59 Intake Total 980 300 Output Total 1906 200 Balance -926 100 Weight 86 kg 81.1 kg Intake: IV 44 LR 20 Pressure Bag 24 Oral 936 300 Output: Chest Tube Drainage 160 Left Lateral Chest 160 Urine 1746 200 Other: Voiding Method Indwelling Catheter Toilet # Voids 1 ABP, PAP, CO, CI - Last Documented Arterial Blood Pressure 111/65 Pulmonary Artery Pressure 25/13 Cardiac Output 6.2 Cardiac Index 3.5 - Constitutional General appearance: Present: cooperative, no acute distress, obese - Respiratory Details: Lung sounds essentially clear throughout, diminished bilateral bases. Respirations are symmetrical and nonlabored. Oxygen saturation is on room air are 95%. She is achieving 1800 mL on her incentive spirometry. - Cardiovascular Details: Regular rhythm and rate. S1 and S2 present, negative for S3, gallop or murmur. Sternum is stable. Remote telemetry showing normal sinus rhythm heart rate 71. Heart hugger is in place and she is demonstrating appropriate use. Knee- high ELENITA hose and sequential compression devices in place to her bilateral lower extremities. No edema present. - Gastrointestinal Gastrointestinal Comment(s): Abdomen is soft, nontender and nondistended. Active bowel sounds to all 4 abdominal quadrants. Tolerating oral intake. Passing flatus. - Genitourinary Genitourinary Comment(s): Voiding clear yellow urine. - Integumentary Integumentary Comment(s): Skin is warm and dry. No clubbing or cyanosis present. Midline sternal incision is clean, dry and well approximated. No drainage or redness present. Gauze dressing in place to her sternal incision clean, dry and intact. - Neurologic Neurologic: Present: CNII-XII intact - Musculoskeletal Musculoskeletal: Present: gait normal, strength equal bilaterally - Psychiatric Psychiatric: Present: A&O x's 3, appropriate affect, intact judgment & insight - Allied health notes Allied health notes reviewed: nursing - Labs CBC & Chem 7: 02/02/18 07:19 02/02/18 07:19 Labs: Abnormal Lab Results - Last 24 Hours (Table) 02/01/18 02/01/18 02/01/18 Range/Units 11:47 16:53 20:34 Glucose (74-99) mg/dL POC Glucose (mg/dL) 111 H 146 H 134 H (75-99) mg/dL 02/02/18 02/02/18 Range/Units 07:17 07:19 Glucose 107 H (74-99) mg/dL POC Glucose (mg/dL) 110 H (75-99) mg/dL - Imaging and Cardiology Chest x-ray: report reviewed, image reviewed Assessment and Plan (1) Osteoarthritis Current Visit: Yes Status: Acute Code(s): M19.90 - UNSPECIFIED OSTEOARTHRITIS, UNSPECIFIED SITE SNOMED Code(s): 778979014 (2) S/P CABG (coronary artery bypass graft) Current Visit: Yes Status: Acute Code(s): Z95.1 - PRESENCE OF AORTOCORONARY BYPASS GRAFT SNOMED Code(s): 036486147 (3) Alcohol dependence, daily use Current Visit: Yes Status: Chronic Code(s): F10.20 - ALCOHOL DEPENDENCE, UNCOMPLICATED SNOMED Code(s): 137306883 (4) Asthma Current Visit: Yes Status: Chronic Code(s): J45.909 - UNSPECIFIED ASTHMA, UNCOMPLICATED SNOMED Code(s): 743137195 (5) Coronary artery disease Current Visit: Yes Status: Chronic Code(s): I25.10 - ATHSCL HEART DISEASE OF [place] CORONARY ARTERY W/O ANG PCTRS SNOMED Code(s): 54440474 (6) History of hypertension Current Visit: Yes Status: Chronic Code(s): Z86.79 - PERSONAL HISTORY OF OTHER DISEASES OF THE CIRCULATORY SYSTEM SNOMED Code(s): 922494163 (7) Hyperlipidemia Current Visit: Yes Status: Chronic Code(s): E78.5 - HYPERLIPIDEMIA, UNSPECIFIED SNOMED Code(s): 35606506 Plan: 1. Continue aspirin, statin, Plavix and beta elias. Will increase metoprolol tartrate as tolerated. 2. Pain controlled current medication regimen. 3. Encourage incentive spirometry 10 times every hour while awake. 4. Will monitor daily labs and chest x-rays. Electrolyte replacement per protocol. 5. Insulin management per primary care service. 6. GI prophylaxis with Protonix. DVT prophylaxis with subcu heparin, SCDs. 7. Increase activity, ambulate in hallway. PT/OT/cardiac rehab following. 8. We will transfer the patient to 3 self cardiac care stepdown unit when bed available. 9. More recommendations to follow based on patient's clinical course. Anticipate discharge home within the next 24 hours. Time with Patient: Greater than 30
[2018-02-02 12:07] LABS: Glucose,Whole Blood 84 mg/dL (75-99)
[2018-02-02] MEDS: THIAMINE 100 MG TAB PO SCH ×2 (13:02→18:28)
[2018-02-02] MEDS: MULTIVITAMINS, THERA 1 EACH TAB PO SCH (13:02)
[2018-02-02] MEDS: LORATADINE 10 MG TAB PO SCH (13:29)
--- NOTE | 2018-02-02 15:00 | P.PN ---
Subjective Progress Note Date: 02/02/18 This is a 52-year-old female with a known past medical history of symptomatic coronary disease, hypertension, asthma, hyperlipidemia, osteoarthritis and daily alcohol use of 2-3 drinks per day. Patient was hospitalized January 24 for chest pain and at that time she was found to have a positive stress test underwent heart catheterization which demonstrated ostial diagonal stenosis of 99%, proximal LAD stenosis after the diagonal of 70% and mid RCA stenosis of 20- 30%. she was evaluated by the cardiothoracic surgeon and decided to proceed with coronary artery bypass grafting. Patient is postop day #0 status post off- pump CABG 2. Patient currently in the ICU intubated and sedated. She is starting to wake up. She has 2 chest tubes. No evidence of distress. Vitals are stable. We have been consulted for medical management. 01/31/2018 patient was extubated yesterday evening. She may have chest tube removed today. She's been up and sitting at bedside chair. They're working on pain management. Pain is better controlled at this time. Patient also had some nausea now resolved with Zofran. Patient is belching. She is not passing gas this time bowel movement yet. Denies any shortness of breath On 02/01/2018 patient is currently resting in bed. Patient is alert and oriented 3. Patient has some complaints of mild pain. Per cardiothoracic team will remove chest tube. patient has been using incetive spirometer and ambulating. Patient denies shortness of breath cough. Patient denies nausea vomiting or diarrhea. Patient denies any urinary burning On 02/02/2018 patient is alert and oriented 3 in no apparent distress she was seen and examined in intensive care unit she is sitting up in a chair she is complaining of chest pain with movement and cough she has occasional cough otherwise no complaints there is no fever or chills no headache or dizziness no shortness of breath no nausea or vomiting no abdominal pain no diarrhea and no urinary symptoms Objective - Vital Signs Vital signs: Vital Signs Temp 97.9 F 02/02/18 04:00 Pulse 77 02/02/18 04:00 Resp 14 02/02/18 04:00 BP 132/96 02/02/18 04:00 Pulse Ox 95 02/02/18 04:00 Intake & Output 12/22/18 12/23/18 12/23/18 18:59 06:59 18:59 Intake Total 980 300 Output Total 1906 200 Balance -926 100 Weight 86 kg 81.1 kg Intake: IV 44 LR 20 Pressure Bag 24 Oral 936 300 Output: Chest Tube Drainage 160 Left Lateral Chest 160 Urine 1746 200 Other: Voiding Method Indwelling Catheter Toilet # Voids 1 ABP, PAP, CO, CI - Last Documented Arterial Blood Pressure 111/65 Pulmonary Artery Pressure 25/13 Cardiac Output 6.2 Cardiac Index 3.5 - Exam Head normocephalic and atraumatic Neck supple no JVD no goiter Lungs clear to auscultation bilaterally no wheezing or crackles Heart regular rate and rhythm S1-S2, no rub or gallop Abdomen is soft nontender nondistended positive bowel sounds no hepatosplenomegaly Extremities no edema no cyanosis or clubbing Neuro alert and orientated to 3 - Labs CBC & Chem 7: 02/02/18 07:19 02/02/18 07:19 Labs: Abnormal Lab Results - Last 24 Hours (Table) 02/01/18 02/01/18 02/02/18 Range/Units 16:53 20:34 07:17 Glucose (74-99) mg/dL POC Glucose (mg/dL) 146 H 134 H 110 H (75-99) mg/dL 02/02/18 Range/Units 07:19 Glucose 107 H (74-99) mg/dL POC Glucose (mg/dL) (75-99) mg/dL Assessment and Plan Plan: 1. Symptomatic coronary artery disease status CABG 2 vessels. Postop day #3 patient will be transferred out of the intensive care unit today 2. Essential hypertension 3. History of asthma 4. History of hyperlipidemia continue statin 5. Daily alcohol use of 2-3 drinks daily. GI prophylaxis protonix and DVT prophylaxis subcu heparin
[2018-02-02 17:19] LABS: Glucose,Whole Blood 93 mg/dL (75-99)
[2018-02-02 20:54] LABS: Glucose,Whole Blood 126 mg/dL (75-99)
[2018-02-02] MEDS: LISINOPRIL 2.5 MG TAB PO SCH (21:14)
[2018-02-02] MEDS: SENNOSIDES-DOCUSATE SODIUM 1 EACH TAB PO SCH (21:16)
[2018-02-03] MEDS: INSULIN ASPART 100 UNIT/ML 1 ML 10 ML VIAL SQ SCH ×3 (00:20→11:47)
[2018-02-03] MEDS: HEPARIN SODIUM,PORCINE 5,000 UNIT/ML 1 ML VIAL SQ SCH ×2 (06:04→11:47)
[2018-02-03] MEDS: PANTOPRAZOLE 40 MG TABLET PO SCH (06:04)
[2018-02-03] MEDS: KETOROLAC 30 MG/ML 1 ML VIAL IVP SCH ×2 (06:05→11:44)
[2018-02-03 06:19] LABS: Glucose,Whole Blood 100 mg/dL (75-99)
[2018-02-03 07:20] LABS: Basophils % (A) 1 %; Eosinophils # (A) 0.5 k/uL (0-0.7); Eosinophils % (A) 7 %; HCT 42.3 % (34.0-46.0); HGB 13.6 gm/dL (11.4-16.0); Lymphocytes % (A) 24 %; MCH 30.1 pg (25.0-35.0); MCV 94.1 fL (80.0-100.0); Mean Platelet Volume 8.2; Monocytes # (A) 0.5 k/uL (0-1.0); Monocytes % (A) 6 %; Neutrophils % (A) 61 %; Platelet Count 286 k/uL (150-450); RDW 12.4 % (11.5-15.5); WBC 8.2 k/uL (3.8-10.6)
[2018-02-03 07:53] LABS: Anion Gap 9 mmol/L; Blood Urea Nitrogen 14 mg/dL (7-17); Calcium 9.8 mg/dL (8.4-10.2); Carbon Dioxide 25 mmol/L (22-30); Chloride 107 mmol/L (98-107); Glucose 102 mg/dL (74-99); Magnesium 1.8 mg/dL (1.6-2.3); Phosphorus 4.3 mg/dL (2.5-4.5); Potassium 4.7 mmol/L (3.5-5.1); Sodium 141 mmol/L (137-145)
--- NOTE | 2018-02-03 08:16 | XR ---
EXAMINATION TYPE: XR chest 2V DATE OF EXAM: 02/03/2018 COMPARISON: Chest x-ray from yesterday and older studies HISTORY: Post open cardiac surgery. TECHNIQUE: Frontal and lateral views of the chest are obtained. FINDINGS: Post CABG changes with mediastinal clips and sternal wires is redemonstrated. There are ti ny bilateral pleural effusions on lateral view with blunting of bilateral posterior costophrenic angl es. No suspicious focal airspace opacity or pneumothorax is seen bilaterally. The cardiac silhouette size is since upper limits of normal currently. The osseous structures are intact. IMPRESSION: Tiny bilateral pleural effusions. No suspicious focal infiltrate.
[2018-02-03] MEDS: IPRATROPIUM-ALBUTEROL 3 ML NEB INHALATION SCH (08:17)
[2018-02-03 08:43] VITALS: RESP 17
[2018-02-03] MEDS: CLOPIDOGREL 75 MG TAB PO SCH (08:52)
[2018-02-03] MEDS: LORATADINE 10 MG TAB PO SCH (08:52)
[2018-02-03] MEDS: ASPIRIN 325 MG TAB PO SCH (08:52)
[2018-02-03] MEDS: LISINOPRIL 2.5 MG TAB PO SCH (08:52)
[2018-02-03] MEDS: ATORVASTATIN 40 MG TAB PO SCH (08:52)
[2018-02-03] MEDS ORDERED: METOPROLOL TARTRATE 25 MG TAB PO SCH (09:00)
--- NOTE | 2018-02-03 10:32 | P.PN ---
Subjective Progress Note Date: 02/03/18 This is a 52-year-old female with a known past medical history of symptomatic coronary disease, hypertension, asthma, hyperlipidemia, osteoarthritis and daily alcohol use of 2-3 drinks per day. Patient was hospitalized January 24 for chest pain and at that time she was found to have a positive stress test underwent heart catheterization which demonstrated ostial diagonal stenosis of 99%, proximal LAD stenosis after the diagonal of 70% and mid RCA stenosis of 20- 30%. she was evaluated by the cardiothoracic surgeon and decided to proceed with coronary artery bypass grafting. Patient is postop day #0 status post off- pump CABG 2. Patient currently in the ICU intubated and sedated. She is starting to wake up. She has 2 chest tubes. No evidence of distress. Vitals are stable. We have been consulted for medical management. 01/31/2018 patient was extubated yesterday evening. She may have chest tube removed today. She's been up and sitting at bedside chair. They're working on pain management. Pain is better controlled at this time. Patient also had some nausea now resolved with Zofran. Patient is belching. She is not passing gas this time bowel movement yet. Denies any shortness of breath On 02/01/2018 patient is currently resting in bed. Patient is alert and oriented 3. Patient has some complaints of mild pain. Per cardiothoracic team will remove chest tube. patient has been using incetive spirometer and ambulating. Patient denies shortness of breath cough. Patient denies nausea vomiting or diarrhea. Patient denies any urinary burning On 02/02/2018 patient is alert and oriented 3 in no apparent distress she was seen and examined in intensive care unit she is sitting up in a chair she is complaining of chest pain with movement and cough she has occasional cough otherwise no complaints there is no fever or chills no headache or dizziness no shortness of breath no nausea or vomiting no abdominal pain no diarrhea and no urinary symptoms 02/03/2018 patient seen on selective. Denies any chest pain or shortness of breath. Her pain is controlled with current pain medication. She possibly will be discharged later this afternoon. Reports having a bowel movement. Denies any difficulty urinating. Objective - Vital Signs Vital signs: Vital Signs Temp 97.5 F L 02/03/18 08:00 Pulse 100 02/03/18 08:28 Resp 17 02/03/18 08:00 BP 135/83 02/03/18 08:00 Pulse Ox 95 02/03/18 08:00 Intake & Output 02/02/18 02/03/18 02/03/18 18:59 06:59 18:59 Intake Total 240 390 Output Total 200 800 500 Balance -200 -560 -110 Weight 81.1 kg 80.2 kg Intake: IV 10 Invasive Line 1 10 Oral 240 380 Output: Urine 200 800 500 Other: Voiding Method Toilet Toilet # Voids 1 0 # Bowel Movements 1 ABP, PAP, CO, CI - Last Documented Arterial Blood Pressure 111/65 Pulmonary Artery Pressure 25/13 Cardiac Output 6.2 Cardiac Index 3.5 - Exam Head normocephalic Neck supple Lungs clear to auscultation bilaterally no wheezing or crackles Heart regular rate and rhythm S1-S2, no rub or gallop Abdomen is soft nontender nondistended positive bowel sounds no hepatosplenomegaly Extremities no edema Neuro alert and orientated to 3 - Labs CBC & Chem 7: 02/03/18 06:05 02/03/18 06:05 Labs: Abnormal Lab Results - Last 24 Hours (Table) 02/02/18 02/03/18 02/03/18 Range/Units 20:51 06:05 06:10 Glucose 102 H (74-99) mg/dL POC Glucose (mg/dL) 126 H 100 H (75-99) mg/dL Assessment and Plan Assessment: 1. Symptomatic coronary artery disease status CABG 2 vessels. Postop day #4 2. Essential hypertension 3. History of asthma 4. History of hyperlipidemia continue statin 5. Daily alcohol use of 2-3 drinks daily. GI prophylaxis protonix and DVT prophylaxis subcu heparin Anticipating discharge later today Patient to follow up with Dr. Mota in 1 week I performed an examination of the patient and discussed their management with the physician Hvac Mechanical Engineer. I have reviewed the Physician Hvac Mechanical Engineer's notes and agree with the documented findings and plan of care
[2018-02-03] MEDS ORDERED: FUROSEMIDE 40 MG TAB PO STA (10:36)
[2018-02-03 11:22] LABS: Glucose,Whole Blood 100 mg/dL (75-99)
[2018-02-03 11:34] VITALS: BP 119/92; PULSE 83; TEMP 97.2
[2018-02-03] MEDS: MULTIVITAMINS, THERA 1 EACH TAB PO SCH (11:44)
[2018-02-03] MEDS: THIAMINE 100 MG TAB PO SCH (11:44)
--- NOTE | 2018-02-03 12:05 | P.DS ---
Providers Date of admission: 01/30/18 06:52 Expected date of discharge: 02/03/18 Attending physician: Jose Beavers Consults: 01/30/18 12:58 Consult Physician Routine Consulting Provider: Mickey Gonzales Consult Reason/Comments: Transit Mixer Operator Consult: post cardiac surgery Do you want consulting provider notified?: Yes Consult Physician Routine Consulting Provider: Luan Mota Consult Reason/Comments: medical managment Do you want consulting provider notified?: Yes Consult Physician Routine Consulting Provider: Gaetano Elizabeth Consult Reason/Comments: Nuclear Station Operator Consult: post cardiac surgery Do you want consulting provider notified?: Yes Primary care physician: Luan Mota - Discharge Diagnosis(es) (1) Osteoarthritis Current Visit: Yes Status: Acute (2) S/P CABG (coronary artery bypass graft) Current Visit: Yes Status: Acute (3) Alcohol dependence, daily use Current Visit: Yes Status: Chronic (4) Asthma Current Visit: Yes Status: Chronic (5) Coronary artery disease Current Visit: Yes Status: Chronic (6) History of hypertension Current Visit: Yes Status: Chronic (7) Hyperlipidemia Current Visit: Yes Status: Chronic Hospital Course: FINAL DIAGNOSIS: 1. Symptomatic multivessel coronary artery disease 2. Hypertension 3. Hyperlipidemia 4. History of asthma 5. Osteoarthritis 6. Daily alcohol use, drinking 2-3 alcoholic beverages per day PRINCIPAL PROCEDURE: 1. Off pump coronary artery bypass graft 2, left internal mammary artery to the left anterior descending coronary artery and jump Y left internal mammary artery graft to the first obtuse marginal coronary artery branch. 2. Intraoperative transesophageal echocardiogram performed by anesthesia. HISTORY OF PRESENT ILLNESS: This is a 52-year-old female patient who is followed by Dr. Mota on an outpatient basis. She has a past medical history of hypertension, hyperlipidemia, history of asthma, osteoarthritis and daily alcohol use drinking 2-3 alcoholic beverages per day. 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 She subsequently had presented to the emergency department here at [facility] with the above- mentioned complaints, a 12-lead EKG was completed which demonstrated normal sinus rhythm. She also had negative troponins. She was subsequently seen by Dr. Elizabeth from cardiology associates for further cardiac evaluation and workup. A stress echocardiogram was completed demonstrating possible anterior lateral wall ischemia. A heart catheterization was completed which demonstrated an ostial diagonal stenosis of 99%, proximal left anterior descending coronary artery stenosis after the diagonal of 70%, and a 20-30% stenosis to her mid right coronary artery. Also during heart catheterization a left ventriculogram was completed which showed her to have normal left ventricular function. Due to her above-mentioned symptoms, stress echocardiogram and cardiac catheterization results a consult was placed to Dr. Jose Beavers from cardiothoracic surgery. The patient was seen and evaluated by Dr. Beavers who reviewed the cardiac catheterization results with the patient and an elective myocardial revascularization surgery was recommended. HOSPITAL COURSE: The patient was admitted to the hospital and after obtaining consent was taken the operating room where Dr. Jose Beavers performed an elective off-pump coronary artery bypass graft 2, with placement of her left internal mammary artery to left anterior descending coronary artery and a jump Y left internal mammary artery graft to the first obtuse marginal coronary artery branch. Also during the procedure an intraoperative transesophageal echocardiogram was performed by anesthesia. Upon completion of her surgery the patient was transferred to the cardiovascular intensive care unit where she was recovered, monitored hemodynamically and where she progressed cardiac rehabilitation phase 1. She was extubated, all lines, tubes and supportive drips were discontinued when appropriate and she was transferred to [address] [place] [address] cardiac stepdown unit for further rehabilitation needs. Her option has been weaned off and she is maintaining good oxygen saturations on room air, she continues to work with physical, occupational therapy and cardiac rehabilitation , she has been tolerating an oral diet, her pain is well controlled and is ready to be discharged home with [facility] care on postoperative day # 4. She has received verbal and written instructions regarding her medications, activity restrictions, signs and symptoms requiring physician notification and her follow-up appointments. COMPLICATIONS: There were no postoperative complications. CONSULTATIONS: 1. Dr. Elizabeth for cardiology management. 2. Dr. Gonzales for pulmonary and ventilator management. 3. Dr. Mota for medical management. DISCHARGE INSTRUCTIONS: 1. No driving for 4 weeks, or until physician gives their ok. 2. The patient should sleep in their own bed, no medical bed needed. 3. Stairs are not an issue. If the bedroom is upstairs, it is advised that the patient go up at night and down in the morning for the first week. Go slowly, using handrail and take 1 step at a time. 4. ELENITA hose are to be worn for 30 days or until physician discontinues. 5. Heart hugger is to be worn 100% of the time until physician discontinues.( except when showering) 6. No lifting, pushing, or pulling more than 10 pounds for 12 weeks. The physician will advise of any restriction changes. 7. The patient is expected to continue the prescribed walking program. 8. Continue pain control per as needed orders. 9. Continue with incentive spirometry and splinting/heart hugger until otherwise directed by the physician. 10. Must shower daily using liquid antibacterial soap and a separate white washcloth for each individual incision. 11. Routine sternal incision care, no ointments, lotions or powders on the incisions. 12. Please notify surgeon/nurse practitioner for temperature greater than 101F or purulent drainage from incisions 13. Prescriptions for first 30 days given per cardiac surgery service. After 30 days, all prescription refills obtained through cardiology/primary care physician. 14. A red arm and has been placed on this patient it should be worn for 30 days post surgery and will be removed by the cardiothoracic surgeons. If an ER visit is necessary, please make sure the number on the red arm band is called. HOME HEALTH SERVICES TO PROVIDE: RN SKILLED HOME CARE SERVICES FOR POST-OP SURGICAL PATIENTS WITH THE FOLLOWING: Coronary Artery Bypass Surgery (CABG), Mitral Valve Replacement/ Repair ( MVR), Aortic Valve Replacement/Repair (AVR) RN TO CONTINUE EDUCATION FROM ``ROAD TO A HEALTH HEART PATIENT EDUCATION MANUAL" (GIVEN TO PATIENT IN THE HOSPITAL) MEDICATION RECONCILIATION WITH EDUCATION NEEDED ON FIRST HOME VISIT EMPHASIZE IMPORTANCE OF WEARING BREAST SUPPORT/HEART HUGGER ENCOURAGE USE OF INCENTIVE SPIROMETER 10 X EVERY HOUR WHILE AWAKE ENCOURAGE UTILIZATION OF LOWER EXTREMITY COMPRESSION STOCKINGS/ELENITA HOSE and ELEVATE LEGS ABOVE LEVEL OF HEART WHILE AT REST. ENCOURAGE AMBULATION 3-5x/day INCREASING TOLERATES, WHILE AVOID EXTREMES IN TEMPERATURE FREQUENCY: RN TO OPEN THE PATIENT WITHIN 24 HOURS OF DISCHARGE FROM THE HOSPITAL WITH TELEHEALTH INSTALLED AT [facility] RN TO VISIT 2-3 X A WEEK FOR 4 WEEKS ESTABLISHED BY PATIENT NEEDS. LABORATORY: CBC, CMP TO BE DRAWN ON THE THIRD DAY HOME, 02/06/2018 (RAN STAT) FAX RESULTS TO [phone]. TELEHEALTH PARAMETERS: WEIGHT: NOTIFY MD OF WEIGHT GAIN OF 2 LBS IN 24 HOURS OR 5 LBS IN ONE WEEK HR: NOTIFY MD OF HR <55 BPM OR HR>100 BPM BP: NOTIFY MD IF BP <90/55 OR BP>140/100 O2 SAT: NOTIFY MD IF PO2<93% ON ROOM AIR SEND TELEHEALTH REPORT TO PROCESS DESIGNER AND CARDIOVASCULAR SURGEON THE FIRST WEEK OF CARE AND THEN BI-WEEKLY. PLEASE ADDITIONALLY COMMUNICATE ANY ABNORMALS AND NEW FINDINGS TO THE SURGEONS OFFICE. Plan - Discharge Summary Discharge Rx Participant: Yes New Discharge Prescriptions: New Acetaminophen Tab [Tylenol] 500 mg PO Q6HR PRN tab PRN Reason: Fever And/ Or Pain Aspirin 325 mg PO DAILY tab Clopidogrel [Plavix] 75 mg PO DAILY #30 tab Lisinopril [Zestril] 2.5 mg PO DAILY #30 tab Metoprolol Tartrate [Lopressor] 50 mg PO BID #120 tab Multivitamin/Iron/Folic Acid [Centrum Adults Tablet] 1 each PO DAILY #30 tablet Pantoprazole [Protonix] 40 mg PO AC-BRKFST #[address] Haynes-Docusate Sodium [Senokot-S] 2 each PO HS #60 tab Thiamine [Vitamin B-1] 100 mg PO BID@1200,1700 tab Continue Fexofenadine HCl 180 mg PO DAILY Fluticasone Propionate [Flovent Hfa 44 mcg] 2 puff INHALATION RT-DAILY Atorvastatin [Lipitor] 40 mg PO DAILY 30 Days #30 tab Discontinued amLODIPine [Norvasc] 5 mg PO DAILY 30 Days #30 tab Aspirin 81 mg PO DAILY #30 chew Metoprolol Tartrate [Lopressor] 25 mg PO BID 30 Days #60 tab Mupirocin 2% Oint [Bactroban 2% Oint] 1 applic NASAL BID Discharge Medication List Fexofenadine HCl 180 mg PO DAILY 09/20/16 [History] Fluticasone Propionate [Flovent Hfa 44 mcg] 2 puff INHALATION RT-DAILY 01/22/18 [History] Acetaminophen Tab [Tylenol] 500 mg PO Q6HR PRN tab 02/03/18 [Rx] Aspirin 325 mg PO DAILY tab 02/03/18 [Rx] Atorvastatin [Lipitor] 40 mg PO DAILY 30 Days #30 tab 02/03/18 [Rx] Clopidogrel [Plavix] 75 mg PO DAILY #30 tab 02/03/18 [Rx] Lisinopril [Zestril] 2.5 mg PO DAILY #30 tab 02/03/18 [Rx] Metoprolol Tartrate [Lopressor] 50 mg PO BID #120 tab 02/03/18 [Rx] Multivitamin/Iron/Folic Acid [Centrum Adults Tablet] 1 each PO DAILY #30 tablet 02/03/18 [Rx] Pantoprazole [Protonix] 40 mg PO AC-BRKFST #30 tablet.dr 02/03/18 [Rx] Sennosides-Docusate Sodium [Senokot-S] 2 each PO HS #60 tab 02/03/18 [Rx] Thiamine [Vitamin B-1] 100 mg PO BID@1200,1700 tab 02/03/18 [Rx] Follow up Appointment(s)/Referral(s): Gaetano Elizabeth MD [STAFF PHYSICIAN] - 02/17/18 3:15 pm Jose Beavers MD [STAFF PHYSICIAN] - 02/27/18 1:15 pm Mickey Gonzales DO [Doctor of Osteopathic Medicine] - 03/04/18 10:15 am Luan Mota MD [Primary Care Provider] - 1 Week Luigi Gr NPC [Nurse Practitioner] - 1 Week Ambulatory/Diagnostic Orders: Complete Blood Count w/diff [LAB.AMB] Time Frame: 02/06/18, Facility: [facility], Location: Laboratory Main [facility] Comprehensive Metabolic Panel [LAB.AMB] Time Frame: 02/06/18, Facility: [facility], Location: Laboratory Main Hospital Discharge Disposition: HOME WITH HOME HEALTH SERVICES
--- NOTE | 2018-02-03 15:06 | P.PN ---
Subjective Progress Note Date: 02/03/18 This is a 52-year-old female who is status post I to coronary bypass surgery with the ARMSTRONG graft to LAD and junk graft to the diagonal. Patient is sitting up in the chair and seems to be free of any significant chest pain. She was able to ablate last night. She is maintaining sinus rhythm. No arrhythmias are noted. Chest x-ray showed small left-sided pleural effusion. Left chest tube is still in place. Lungs show some diminished breath sounds at bases. Heart is regular. Overall patient seemed to be doing well. Lab work showed normal BUN/creatinine 02/02/2018: This patient is status post aorto coronary bypass surgery. Patient hemodynamically sweaty stable. Patient could not sleep well last night. Complains of being tired. Does not doesn't complain of much chest pain or shortness of breath. Chest x-ray showed evidence of persistent mild bradycardia megaly and small left pleural effusion associated with some eclectic phthisis. Last chest tube is removed. Overall patient condition seems to be stable. Her hemoglobin is 12.9. Electol lites are within normal limits. Renal function is normal. Patient waiting to be transferred to stepdown unit. 02/03/2018: This patient is status post aorto coronary bypass surgery. Patient seemed to be doing well today. She was able to sleep better and seems to be feeling slightly stronger. No arrhythmias. Lungs are clear. Heart is regular. She is eating better. Tolerating activity. Patient is being discharged home. Follow-up with Dr. Elizabeth . Objective - Vital Signs Vital signs: Vital Signs Temp 97.2 F L 02/03/18 11:33 Pulse 83 02/03/18 12:00 Resp 17 02/03/18 12:00 BP 119/92 02/03/18 11:33 Pulse Ox 95 02/03/18 08:00 Intake & Output 02/02/18 02/03/18 02/03/18 18:59 06:59 18:59 Intake Total 240 640 Output Total 200 800 800 Balance -200 -560 -160 Weight 81.1 kg 80.2 kg Intake: IV 20 Invasive Line 1 20 Oral 240 620 Output: Urine 200 800 800 Other: Voiding Method Toilet Toilet # Voids 1 0 # Bowel Movements 1 ABP, PAP, CO, CI - Last Documented Arterial Blood Pressure 111/65 Pulmonary Artery Pressure 25/13 Cardiac Output 6.2 Cardiac Index 3.5 - Exam GENERAL EXAM: Patient is alert and oriented and doesn't appear to be in any acute distress HEENT: Normocephalic. Normal reaction of pupils, equal size, normal range of extraocular motion. No erythema or exudates in the throat. NECK: No masses, no nuchal rigidity. CHEST: No chest wall deformity. LUNGS: Equal air entry with no crackles or wheeze. HEART: S1 and S2 normal ABDOMEN: No hepatosplenomegaly, normal bowel sounds, no guarding or rigidity. SKIN: No rashes CENTRAL NERVOUS SYSTEM: No focal deficits. EXTREMITIES: No cyanosis, clubbing or edema. - Labs CBC & Chem 7: 02/03/18 06:05 02/03/18 06:05 Labs: Abnormal Lab Results - Last 24 Hours (Table) 02/02/18 02/03/18 02/03/18 Range/Units 20:51 06:05 06:10 Glucose 102 H (74-99) mg/dL POC Glucose (mg/dL) 126 H 100 H (75-99) mg/dL 02/03/18 Range/Units 11:09 Glucose (74-99) mg/dL POC Glucose (mg/dL) 100 H (75-99) mg/dL Assessment and Plan (1) S/P CABG (coronary artery bypass graft) Current Visit: Yes Status: Acute Code(s): Z95.1 - PRESENCE OF AORTOCORONARY BYPASS GRAFT SNOMED Code(s): 384163056 (2) Coronary artery disease Current Visit: Yes Status: Chronic Code(s): I25.10 - ATHSCL HEART DISEASE OF [place] CORONARY ARTERY W/O ANG PCTRS SNOMED Code(s): 90874607 (3) History of hypertension Current Visit: Yes Status: Chronic Code(s): Z86.79 - PERSONAL HISTORY OF OTHER DISEASES OF THE CIRCULATORY SYSTEM SNOMED Code(s): 400891563 (4) Hyperlipidemia Current Visit: Yes Status: Chronic Code(s): E78.5 - HYPERLIPIDEMIA, UNSPECIFIED SNOMED Code(s): 40453004 Plan: Patient is critically stable. Tolerating activity. Patient will be discharged and have follow-up with the Dr. Elizabeth
[2018-02-03] MEDS ORDERED: METOPROLOL TARTRATE 50 MG TAB PO SCH (21:00)
== END 2018-02-03 14:35 | disposition home health service (06) | DRG 236 ==
LOC: 2ORMAIN 06:52 → 2SICU 13:15 → UNDODISIN 14:09 → 3SCARD 02-03 03:04
PROVIDERS: ADMIT Thoracic Surgery (Cardiothoracic Vascular Surgery); ATTEND Thoracic Surgery (Cardiothoracic Vascular Surgery)
PROC: 02100A3 Bypass Coronary Artery, One Artery from Coronary Artery with Autologous Arterial Tissue, Open Approach (ICD-10-PCS; 2018-01-30)
PROC: 03B10ZZ Excision of Left Internal Mammary Artery, Open Approach (ICD-10-PCS; 2018-01-30)
PROC: B24BZZ4 Ultrasonography of Heart with Aorta, Transesophageal (ICD-10-PCS; 2018-01-30)
PROC: 02100Z9 Bypass Coronary Artery, One Artery from Left Internal Mammary, Open Approach (ICD-10-PCS; principal; 2018-01-30 09:30)
DX: I25.10 Atherosclerotic heart disease of native coronary artery without angina pectoris (principal); J98.11 Atelectasis; J90 Pleural effusion, not elsewhere classified; E78.5 Hyperlipidemia, unspecified; I25.84 Coronary atherosclerosis due to calcified coronary lesion; I10 Essential (primary) hypertension; K57.90 Diverticulosis of intestine, part unspecified, without perforation or abscess without bleeding; L30.9 Dermatitis, unspecified; G43.909 Migraine, unspecified, not intractable, without status migrainosus; J45.909 Unspecified asthma, uncomplicated; M19.90 Unspecified osteoarthritis, unspecified site; Z86.19 Personal history of other infectious and parasitic diseases; Z82.3 Family history of stroke; Z82.69 Family history of other diseases of the musculoskeletal system and connective tissue; F10.20 Alcohol dependence, uncomplicated; Z79.82 Long term (current) use of aspirin; Z79.51 Long term (current) use of inhaled steroids; Z79.899 Other long term (current) drug therapy; Z88.1 Allergy status to other antibiotic agents; Z88.0 Allergy status to penicillin
CPT/HCPCS: 71045; 71046; 80048; 80053; 81025; 82330; 82805; 83735; 84100; 85025; 85027; 85610; 85730; 86850; 86891; 86900; 86901; 86920; 94002; 94640

== ENCOUNTER → 2018-05-08 | Outpatient (CLI) | payer BC ==
[2018-05-08 11:20] LABS: Albumin 4.3 g/dL (3.80-4.90); Albumin/Globulin Ratio 2.05 (1.60-3.17); Anion Gap 8.7 mmol/L (4.00-12.00); Calcium 9.4 mg/dL (8.7-10.3); Carbon Dioxide 26.3 mmol/L (21.6-31.8); Globulin 2.1 g/dL (1.6-3.3); LDL Cholesterol,Calculated 61.8 mg/dL (0.0-131.0); Potassium 4.1 mmol/L (3.5-5.5); Total Bilirubin 0.6 mg/dL (0.2-1.2); Total Protein 6.4 g/dL (6.2-8.2); VLDL Calculation 22.2 mg/dL (5.00-40.00)
== END ==
LOC: LABWHC1 07:35
PROVIDERS: ATTEND Internal Medicine Interventional Cardiology
DX: E78.2 Mixed hyperlipidemia (principal)
CPT/HCPCS: 36415; 80053; 80061

== ENCOUNTER 2018-05-15 07:50 | Inpatient (IN) | payer BC ==
--- NOTE | 2018-05-15 08:25 | ED ---
General Adult HPI - General Chief complaint: Chest Pain Stated complaint: lt sided chest pain Time Seen by Provider: 05/15/18 07:56 Source: patient, RN notes reviewed, old records reviewed Mode of arrival: ambulatory Limitations: no limitations - History of Present Illness Initial comments: 52 -year-old female presented for evaluation of left-sided chest pain. Patient is complaining of pain under her left breast and left lateral side which began yesterday at approximately 9:30 PM. Denies central chest pain. Denies dyspnea or diaphoresis. Denies abdominal pain nausea or vomiting. Patient is status post two-vessel bypass in January 2018. She has been doing well since the surgery with no issues. She denies fever or cough. - Related Data Home Medications Medication Instructions Recorded Confirmed Fexofenadine HCl 180 mg PO DAILY 09/20/16 05/15/18 Fluticasone Propionate [Flovent 2 puff INHALATION RT-DAILY 01/22/18 05/15/18 Hfa 44 mcg] Multivitamin/Iron/Folic Acid 1 tab PO DAILY 05/15/18 05/15/18 [Centrum Adults Tablet] Thiamine [Vitamin B-1] 100 mg PO DAILY 05/15/18 05/15/18 Previous Rx's Medication Instructions Recorded Aspirin 325 mg PO DAILY tab 02/03/18 Atorvastatin [Lipitor] 40 mg PO DAILY 30 Days #30 tab 02/03/18 Clopidogrel [Plavix] 75 mg PO DAILY #30 tab 02/03/18 Lisinopril [Zestril] 2.5 mg PO DAILY #30 tab 02/03/18 Metoprolol Tartrate [Lopressor] 50 mg PO BID #120 tab 02/03/18 Pantoprazole [Protonix] 40 mg PO AC-BRKFST #30 tablet. 02/03/18 Allergies Allergy/AdvReac Type Severity Reaction Status Date / Time amoxicillin AdvReac Rash/Hives Verified 05/15/18 10:04 cefaclor [From Ceclor] AdvReac Rash/Hives Verified 05/15/18 10:04 Review of Systems ROS Statement: Those systems with pertinent positive or pertinent negative responses have been documented in the HPI. ROS Other: All systems not noted in ROS Statement are negative. Past Medical History Past Medical History: Asthma, Hyperlipidemia, Hypertension, Osteoarthritis (OA), Skin Disorder Additional Past Medical History / Comment(s): diverticulosis, eczema, migraines, shingles x2 last time was 5-7 years ago. in past was on bp meds but dr took her off it several years ago History of Any Multi-Drug Resistant Organisms: None Reported Past Surgical History: Heart Catheterization, Hernia Repair, Orthopedic Surgery, Tonsillectomy Additional Past Surgical History / Comment(s): ORIF Right ankle, colonoscopy, "hernia repair as " Past Anesthesia/Blood Transfusion Reactions: No Reported Reaction Past Psychological History: No Psychological Hx Reported Smoking Status: Never smoker Past Alcohol Use History: None Reported Past Drug Use History: None Reported - Past Family History Mother Family Medical History: CVA/TIA Additional Family Medical History / Comment(s): tia Father Additional Family Medical History / Comment(s): back sx General Exam Limitations: no limitations General appearance: alert, in no apparent distress Head exam: Present: atraumatic, normocephalic Eye exam: Present: normal appearance, PERRL, EOMI ENT exam: Present: normal exam Neck exam: Present: normal inspection. Absent: tenderness, meningismus Respiratory exam: Present: normal lung sounds bilaterally. Absent: respiratory distress, wheezes Cardiovascular Exam: Present: normal rhythm, tachycardia GI/Abdominal exam: Present: soft. Absent: distended, tenderness, guarding Extremities exam: Present: normal inspection, normal capillary refill. Absent: pedal edema, calf tenderness Neurological exam: Present: alert, oriented X3, CN II-XII intact. Absent: motor sensory deficit Psychiatric exam: Present: normal affect, normal mood Skin exam: Present: warm, dry, intact. Absent: cyanosis, diaphoretic Course Vital Signs 05/15/18 07:52 Temperature 98.0 F Pulse Rate 108 H Respiratory 18 Rate Blood Pressure 132/92 O2 Sat by Pulse 97 Oximetry EKG Findings - EKG Comments: EKG Findings:: EKG: Normal sinus rhythm, left atrial enlargement, rate of 96, CT interval 136, QRS duration 80, QTc 442, no ST segment elevation Medical Decision Making - Medical Decision Making 52-year-old female presenting with left-sided chest pain. Pain is pleuritic, worse with deep inspiration. Patient is 3 months status post open heart surgery with 2 vessel bypass. Denies any central chest pain, no associated vomiting, diaphoresis. No significant dyspnea. Chest x-rays obtained, negative for acute cardiac pulmonary disease, EKG is normal sinus with no ST segment elevation. Baudilio jasmine's laboratory testing reveals normal CBC, normal CMP, negative initial troponin. CT angiogram is performed with concern for PE in the setting of this pleuritic chest pain, there is no large central pulmonary embolism. There is some limitation of the study and the left lung base secondary to artifact. There is small pericardial effusion and nonunion of sternotomy. Patient will be kept in observation, chest pain rule out, echo will be obtained. Case discussed with admitting physician. - Lab Data Result diagrams: 05/15/18 08:14 05/15/18 08:14 Lab Results 05/15/18 05/15/18 05/15/18 Range/Units 08:14 08:14 08:14 WBC 9.2 (3.8-10.6) k/uL RBC 4.81 (3.80-5.40) m/uL Hgb 14.5 (11.4-16.0) gm/dL Hct 43.1 (34.0-46.0) % MCV 89.6 (80.0-100.0) fL MCH 30.2 (25.0-35.0) pg MCHC 33.7 (31.0-37.0) g/dL RDW 14.5 (11.5-15.5) % Plt Count 275 (150-450) k/uL Neutrophils % 71 % Lymphocytes % 15 % Monocytes % 7 % Eosinophils % 5 % Basophils % 0 % Neutrophils # 6.5 (1.3-7.7) k/uL Lymphocytes # 1.4 (1.0-4.8) k/uL Monocytes # 0.7 (0-1.0) k/uL Eosinophils # 0.5 (0-0.7) k/uL Basophils # 0.0 (0-0.2) k/uL PT (9.0-12.0) sec INR (<1.2) APTT (22.0-30.0) sec Sodium 140 (137-145) mmol/L Potassium 4.8 (3.5-5.1) mmol/L Chloride 103 (98-107) mmol/L Carbon Dioxide 26 (22-30) mmol/L Anion Gap 11 mmol/L BUN 12 (7-17) mg/dL Creatinine 0.72 (0.52-1.04) mg/dL Est GFR (CKD-EPI)AfAm >90 (>60 ml/min/1.73 sqM) Est GFR (CKD-EPI)NonAf >90 (>60 ml/min/1.73 sqM) Glucose 119 H (74-99) mg/dL Calcium 9.4 (8.4-10.2) mg/dL Magnesium 1.6 (1.6-2.3) mg/dL Total Bilirubin 0.7 (0.2-1.3) mg/dL AST 26 (14-36) U/L ALT 39 (9-52) U/L Alkaline Phosphatase 94 (38-126) U/L Creatine Kinase 56 (30-135) U/L CK-MB (CK-2) 1.2 (0.0-2.4) ng/mL Troponin I <0.012 (0.000-0.034) ng/mL NT-Pro-B Natriuret Pep pg/mL Total Protein 7.0 (6.3-8.2) g/dL Albumin 4.2 (3.5-5.0) g/dL 05/15/18 05/15/18 Range/Units 08:14 08:14 WBC (3.8-10.6) k/uL RBC (3.80-5.40) m/uL Hgb (11.4-16.0) gm/dL Hct (34.0-46.0) % MCV (80.0-100.0) fL MCH (25.0-35.0) pg MCHC (31.0-37.0) g/dL RDW (11.5-15.5) % Plt Count (150-450) k/uL Neutrophils % % Lymphocytes % % Monocytes % % Eosinophils % % Basophils % % Neutrophils # (1.3-7.7) k/uL Lymphocytes # (1.0-4.8) k/uL Monocytes # (0-1.0) k/uL Eosinophils # (0-0.7) k/uL Basophils # (0-0.2) k/uL PT 10.0 (9.0-12.0) sec INR 0.9 (<1.2) APTT 25.0 (22.0-30.0) sec Sodium (137-145) mmol/L Potassium (3.5-5.1) mmol/L Chloride (98-107) mmol/L Carbon Dioxide (22-30) mmol/L Anion Gap mmol/L BUN (7-17) mg/dL Creatinine (0.52-1.04) mg/dL Est GFR (CKD-EPI)AfAm (>60 ml/min/1.73 sqM) Est GFR (CKD-EPI)NonAf (>60 ml/min/1.73 sqM) Glucose (74-99) mg/dL Calcium (8.4-10.2) mg/dL Magnesium (1.6-2.3) mg/dL Total Bilirubin (0.2-1.3) mg/dL AST (14-36) U/L ALT (9-52) U/L Alkaline Phosphatase (38-126) U/L Creatine Kinase (30-135) U/L CK-MB (CK-2) (0.0-2.4) ng/mL Troponin I (0.000-0.034) ng/mL NT-Pro-B Natriuret Pep 193 pg/mL Total Protein (6.3-8.2) g/dL Albumin (3.5-5.0) g/dL Disposition Clinical Impression: Chest pain, S/P CABG (coronary artery bypass graft) Disposition: ADMITTED IP TO THIS HOSP Condition: Stable Is patient prescribed a controlled substance at d/c from ED?: No Referrals: Luan Mota MD [Primary Care Provider] - 1-2 days Decision to Admit Reason: Admit from EC Decision Date: 05/15/18 Decision Time: 11:06
--- NOTE | 2018-05-15 08:32 | XR ---
EXAMINATION TYPE: XR chest 2V DATE OF EXAM: 05/15/2018 COMPARISON: Prior chest x-ray 02/03/2018 HISTORY: Chest pain TECHNIQUE: Frontal and lateral views of the chest are obtained. FINDINGS: Patient is post median sternotomy. No evident airspace disease, pneumothorax, or pleural e ffusion. There are overlying cardiac leads. There is hyperinflation. IMPRESSION: No acute cardiopulmonary process.
[2018-05-15 08:41] LABS: Basophils % (A) 0 %; Eosinophils # (A) 0.5 k/uL (0-0.7); Eosinophils % (A) 5 %; HCT 43.1 % (34.0-46.0); HGB 14.5 gm/dL (11.4-16.0); Lymphocytes # (A) 1.4 k/uL (1.0-4.8); Lymphocytes % (A) 15 %; MCH 30.2 pg (25.0-35.0); MCHC 33.7 g/dL (31.0-37.0); MCV 89.6 fL (80.0-100.0); Monocytes # (A) 0.7 k/uL (0-1.0); Monocytes % (A) 7 %; Neutrophils # (A) 6.5 k/uL (1.3-7.7); Neutrophils % (A) 71 %; Platelet Count 275 k/uL (150-450); RBC 4.81 m/uL (3.80-5.40); RDW 14.5 % (11.5-15.5); WBC 9.2 k/uL (3.8-10.6)
[2018-05-15 08:47] LABS: INR 0.9 (<1.2)
[2018-05-15 08:49] LABS: ALT 39 U/L (9-52); AST 26 U/L (14-36); Albumin 4.2 g/dL (3.5-5.0); Alkaline Phosphatase 94 U/L (38-126); Anion Gap 11 mmol/L; Blood Urea Nitrogen 12 mg/dL (7-17); Calcium 9.4 mg/dL (8.4-10.2); Carbon Dioxide 26 mmol/L (22-30); Chloride 103 mmol/L (98-107); Creatine Kinase 56 U/L (30-135); Glucose 119 mg/dL (74-99); Magnesium 1.6 mg/dL (1.6-2.3); Potassium 4.8 mmol/L (3.5-5.1); Sodium 140 mmol/L (137-145); Total Bilirubin 0.7 mg/dL (0.2-1.3)
[2018-05-15 09:17] LABS: Creatine Kinase MB 1.2 ng/mL (0.0-2.4); Troponin I <0.012 ng/mL (0.000-0.034)
[2018-05-15] MEDS ORDERED: SODIUM CHLORIDE 0.9% 1,000 ML IV ONE (09:22)
--- NOTE | 2018-05-15 09:54 | CT ---
EXAMINATION TYPE: CT angio chest DATE OF EXAM: 05/15/2018 COMPARISON: Radiograph same day HISTORY: 52-year-old female Chest pain, double bypass in January TECHNIQUE: Contiguous axial scanning of the chest performed with IV Contrast, patient injected with 1 00 mL of Isovue 370. Coronal/sagittal MIP reconstructions performed. CT DLP: 338.7 mGycm Automated exposure control for dose reduction was used. FINDINGS: Median sternotomy wires are present with post-CABG changes. Heart normal size with small pericardial effusion. Ascending aorta aneurysmal at 4.2 cm. Conventional branching anatomy. Satisfactory opacification of the pulmonary arterial system. Prominent motion artifact involving the left mid and lower lung limiting assessment for pulmonary emboli along distal segmental and subsegmen benigno branches of the lower lobe and lingula. No pulmonary embolus seen elsewhere in the lungs. No flat tening of the interventricular septum reflux of contrast into the hepatic veins. No thoracic lymphadenopathy. There is some residual soft tissue thickening in the anterior mediastinum, substernal region. A trace left pleural effusion is present with strandy atelectasis at the left base. No consolidation or pleural effusion. Small hiatal hernia. 1.7 cm nodularity of the right adrenal gland. Left-sided colonic diverticulosis. Bones: The patient's sternotomy remains nonunited. No significant presternal soft tissue thickening. There i s slight widening of the sternotomy at the level of the manubrium measuring up to 9 mm wide and some patchy lucency which is in the mid sternal body, coronal image 58. IMPRESSION: 1. PROMINENT MOTION ARTIFACT IN THE LEFT MID AND LOWER LUNG LIMITING ASSESSMENT OF THE DISTAL SEGMENT AL AND SUBSEGMENTAL BRANCHES OF THE LINGULA AND LEFT LOWER LOBE. MANY OF THESE BRANCHES ARE ESSENTIAL LY NONDIAGNOSTIC. OTHERWISE, NO PULMONARY EMBOLUS SEEN ELSEWHERE . 2. POST-CABG CHANGES. THERE IS A SMALL PERICARDIAL EFFUSION AND EDEMA/SOFT TISSUE THICKENING IN THE S UBSTERNAL REGION. THE PATIENT'S STERNOTOMY REMAINS NONUNITED. ALSO, THERE IS SLIGHT WIDENING OF THE S TERNOTOMY MARGINS AT THE LEVEL OF THE MANUBRIUM AND SOME PATCHY OSTEOLYSIS AT THE MIDSTERNAL BODY. CO NSIDER DELAYED UNION. EXCLUDE UNDERLYING INFECTION THESE CHANGES APPEAR MORE PROMINENT THAN EXPECT ED THIS FAR OUT FROM SURGERY. 3. TRACE LEFT PLEURAL EFFUSION. 4. ANEURYSMAL ASCENDING AORTA 4.2 CM. 5. SMALL HIATAL HERNIA. 1.7 CM NODULARITY RIGHT ADRENAL GLAND STATISTICALLY REPRESENTS A BENIGN ADREN AL ADENOMA. A ONE-YEAR FOLLOW-UP CAN BE PERFORMED.
[2018-05-15] MEDS ORDERED: MORPHINE SULFATE 4 MG/ML SYRINGE IV PRN (11:07)
[2018-05-15] MEDS ORDERED: NALOXONE 0.4 MG/ML 1 ML VIAL IV PRN (11:07)
[2018-05-15] MEDS ORDERED: ACETAMINOPHEN TAB 325 MG TAB PO PRN (11:07)
--- NOTE | 2018-05-15 14:42 | P.HPIM ---
History of Present Illness H&P Date: 05/15/18 This is a 52-year-old female patient who presents to the ER with complaints of chest pain. Patient reports that chest pain started last night and was under left breast area. Patient states that pain was consistent. Patient describes pain as a dull ache. Patient denies any associated shortness of breath. Patient does report that her shoulder has been in pain but this is been ongoing since March and patient is following with orthopedic services. Patient denies nausea vomiting or diaphoresis with chest pain. Patient recently underwent on a artery bypass graft surgery 2 in January 2018. Additional medical history includes asthma, hyperlipidemia, hypertension, osteoarthritis and diverticulosis. Chest x-ray completed showing no acute cardiopulmonary process. CT of chest completed showing no pulmonary embolism. Post CABG changes. There is small pericardial effusion and edema soft tissue thickening at the substernal region. The patient's sternotomy remains non-united. Also t here is slight widening of the sternotomy margins level of the manubrium and some patchy ostial lysis at the midsternal body. Consider delayed union. Exclude underlying infection as these changes appear more prominent than expected this far from surgery. Trace left pleural effusion. Aneurysmal a scending aorta 4.2 cm. Small hiatal hernia. 1.7 cm nodularity right adrenal gland statistically represents benign adrenal adenoma 1 year follow-up can be performed. EKG completed showing normal sinus rhythm. Initial troponin negative. Cardiology services have been consulted. Cardiothoracic surgery also consulted. At this time patient states chest pain has improved. Patient denies shortness of breath. Patient denies nausea vomiting or diarrhea. Patient denies any urinary burning or frequency. Review of Systems Please refer to HPI otherwise unremarkable Past Medical History Past Medical History: Asthma, Hyperlipidemia, Hypertension, Osteoarthritis (OA), Skin Disorder Additional Past Medical History / Comment(s): diverticulosis, eczema, migraines, shingles x2 last time was 5-7 years ago. in past was on bp meds but took her off it several years ago History of Any Multi-Drug Resistant Organisms: None Reported Past Surgical History: Heart Catheterization, Hernia Repair, Orthopedic Surgery, Tonsillectomy Additional Past Surgical History / Comment(s): ORIF Right ankle, colonoscopy, "hernia repair as infant" Past Anesthesia/Blood Transfusion Reactions: No Reported Reaction Past Psychological History: No Psychological Hx Reported Smoking Status: Never smoker Past Alcohol Use History: None Reported Past Drug Use History: None Reported - Past Family History Mother Family Medical History: CVA/TIA Additional Family Medical History / Comment(s): tia Father Additional Family Medical History / Comment(s): back sx Medications and Allergies Home Medications Medication Instructions Recorded Confirmed Type Fexofenadine HCl 180 mg PO DAILY 09/20/16 05/15/18 History Fluticasone Propionate [Flovent 2 puff INHALATION RT-DAILY 01/22/18 05/15/18 History Hfa 44 mcg] Aspirin 325 mg PO DAILY tab 02/03/18 05/15/18 Rx Atorvastatin [Lipitor] 40 mg PO DAILY 30 Days #30 tab 02/03/18 05/15/18 Rx Clopidogrel [Plavix] 75 mg PO DAILY #30 tab 02/03/18 05/15/18 Rx Lisinopril [Zestril] 2.5 mg PO DAILY #30 tab 02/03/18 05/15/18 Rx Metoprolol Tartrate [Lopressor] 50 mg PO BID #120 tab 02/03/18 05/15/18 Rx Pantoprazole [Protonix] 40 mg PO AC-BRKFST #30 tablet. 02/03/18 05/15/18 Rx Multivitamin/Iron/Folic Acid 1 tab PO DAILY 05/15/18 05/15/18 History [Centrum Adults Tablet] Thiamine [Vitamin B-1] 100 mg PO DAILY 05/15/18 05/15/18 History Allergies Allergy/AdvReac Type Severity Reaction Status Date / Time amoxicillin AdvReac Rash/Hives Verified 05/15/18 10:04 cefaclor [From Ceclor] AdvReac Rash/Hives Verified 05/15/18 10:04 Physical Exam Vitals: Vital Signs Temp Pulse Resp BP Pulse Ox 05/15/18 07:52 98.0 F 108 H 18 132/92 97 Intake and Output 05/14/18 05/15/18 05/15/18 22:59 06:59 14:59 Other: Weight 70.76 kg Head normocephalic Neck supple Lungs clear to auscultation bilaterally no wheezing or crackles Heart regular rate and rhythm S1-S2, no rub or gallop. Midline chest incision healing. No signs of redness or infection Abdomen is soft nontender nondistended positive bowel sounds no hepatosplenomegaly Extremities no edema Neuro alert and orientated to 3 Results CBC & Chem 7: 05/15/18 08:14 05/15/18 08:14 Labs: Abnormal Lab Results - Last 24 Hours (Table) 05/15/18 Range/Units 08:14 Glucose 119 H (74-99) mg/dL Assessment and Plan Assessment: 1. Chest pain. Chest x-ray performed showing no acute cardiopulmonary process. Initial troponin negative. CTA performed showing small pericardial effusion and widening of the sternotomy margins. Cardiology and cardiothoracic surgery has been consulted. 2-D echo ordered 2. Recent coronary artery bypass graft surgery. Patient had two-vessel in January 2018. Cardiothoracic surgery has been consulted 3. History of hyperlipidemia 4. History of essential hypertension 5. History of asthma no exacerbation at this time 6. History of diverticulosis DVT prophylaxis SCDs until evaluated by cardiothoracic surgery. Protonix for GI prophylaxis Time with Patient: Greater than 30 (Greater than 60% of the total time spent in counseling and coordination of care. I performed an examination of the patient and discussed their management with the Nurse Practitioner. I have reviewed the Nurse Practitioner's notes and agree with the documented findings and plan of care)
--- NOTE | 2018-05-15 15:32 | P.GSCN ---
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 Mota on an outpatient basis. She has a previous medical history of multivessel coronary artery disease status post off-pump CABG 2 on 01/30/2018, hypertension, hyperlipidemia, asthma, and osteoarthritis. She has followed up with all her postoperative appointments and has had a relatively uneventful recovery from open heart surgery, she attended cardiac rehab, and has returned to work. Apparently last night she was sitting up watching TV and experienced chest pain under her left breast area which she described as a dull ache. She stated it was worse with laying down and taking a deep breath, and was relieved with sitting straight up. She also reports she's had increasing pain in her left shoulder and in fact does have an appointment with an orthopedist next Saturday for evaluation. She did not take any medication for the pain, and denies any other symptomatology. She did not sleep well last night and since the pain was still present this morning she presented to [facility] emergency room for evaluation and treatment. She did have a chest x-ray which was unremarkable. Lab work was drawn which was also unremarkable. EKG demonstrated normal sinus rhythm with no ischemic changes. 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 The patient was admitted, consultations were placed for cardiology as well as cardiothoracic surgery for recommendations. Review of Systems Review of systems was completed and was negative except as noted in the HPI Past Medical History Past Medical History: Asthma, Coronary Artery Disease (CAD), Hyperlipidemia, Hypertension, Osteoarthritis (OA), Skin Disorder Additional Past Medical History / Comment(s): diverticulosis, eczema, migraines, shingles x2 last time was 5-7 years ago. in past was on bp meds but took her off it several years ago History of Any Multi-Drug Resistant Organisms: None Reported Past Surgical History: Coronary Bypass/CABG, Heart Catheterization, Hernia Repair, Orthopedic Surgery, Tonsillectomy Additional Past Surgical History / Comment(s): ORIF Right ankle, colonoscopy, "hernia repair as infant", off-pump CABG 2 on 01/30/2018 Past Anesthesia/Blood Transfusion Reactions: No Reported Reaction Past Psychological History: No Psychological Hx Reported Smoking Status: Never smoker Past Alcohol Use History: None Reported Past Drug Use History: None Reported - Past Family History Mother Family Medical History: CVA/TIA Additional Family Medical History / Comment(s): tia Father Additional Family Medical History / Comment(s): back sx Medications and Allergies Home Medications Medication Instructions Recorded Confirmed Type Fexofenadine HCl 180 mg PO DAILY 09/20/16 05/15/18 History Fluticasone Propionate [Flovent 2 puff INHALATION RT-DAILY 01/22/18 05/15/18 History Hfa 44 mcg] Aspirin 325 mg PO DAILY tab 02/03/18 05/15/18 Rx Atorvastatin [Lipitor] 40 mg PO DAILY 30 Days #30 tab 02/03/18 05/15/18 Rx Clopidogrel [Plavix] 75 mg PO DAILY #30 tab 02/03/18 05/15/18 Rx Lisinopril [Zestril] 2.5 mg PO DAILY #30 tab 02/03/18 05/15/18 Rx Metoprolol Tartrate [Lopressor] 50 mg PO BID #120 tab 02/03/18 05/15/18 Rx Pantoprazole [Protonix] 40 mg PO AC-BRKFST #30 tablet.dr 02/03/18 05/15/18 Rx Multivitamin/Iron/Folic Acid 1 tab PO DAILY 05/15/18 05/15/18 History [Centrum Adults Tablet] Thiamine [Vitamin B-1] 100 mg PO DAILY 05/15/18 05/15/18 History Allergies Allergy/AdvReac Type Severity Reaction Status Date / Time amoxicillin AdvReac Rash/Hives Verified 05/15/18 10:04 cefaclor [From Ceclor] AdvReac Rash/Hives Verified 05/15/18 10:04 Surgical - Exam Vital Signs Temp Pulse Resp BP Pulse Ox 98.0 F 108 H 18 132/92 97 05/15/18 07:52 05/15/18 07:52 05/15/18 07:52 05/15/18 07:52 05/15/18 07:52 - General well developed, well nourished, no distress - Eyes PERRL, normal ocular movement - ENT no hearing loss - Neck no masses, no bruits, trachea midline - Respiratory Lungs sounds clear bilaterally. Respirations even, nonlabored. Currently on room air with oxygen saturation 92%. Strong cough. - Cardiovascular S1, S2 present. Regular rate and rhythm, sinus rhythm on telemetry. Sternum stable. Palpable peripheral pulses bilaterally. No edema present. No calf pain or tenderness noted. - Abdomen Abdomen: soft, non tender, bowel sounds - Genitourinary Deferred - Rectum Deferred - Integumentary Skin is warm and dry with evidence of good perfusion. Anterior chest incision well healed without any drainage. no rash, no growths - Neurologic normal coordination, normal sensation - Musculoskeletal normal posture - Psychiatric oriented to time, oriented to person, oriented to place, speech is normal, memory intact Results - Labs 05/15/18 08:14 05/15/18 08:14 Abnormal Lab Results - Last 24 Hours (Table) 05/15/18 Range/Units 08:14 Glucose 119 H (74-99) mg/dL Diabetes panel 05/15/18 Range/Units 08:14 Sodium 140 (137-145) mmol/L Potassium 4.8 (3.5-5.1) mmol/L Chloride 103 (98-107) mmol/L Carbon Dioxide 26 (22-30) mmol/L BUN 12 (7-17) mg/dL Creatinine 0.72 (0.52-1.04) mg/dL Glucose 119 H (74-99) mg/dL Calcium 9.4 (8.4-10.2) mg/dL AST 26 (14-36) U/L ALT 39 (9-52) U/L Alkaline Phosphatase 94 (38-126) U/L Total Protein 7.0 (6.3-8.2) g/dL Albumin 4.2 (3.5-5.0) g/dL Calcium panel 05/15/18 Range/Units 08:14 Calcium 9.4 (8.4-10.2) mg/dL Albumin 4.2 (3.5-5.0) g/dL Pituitary panel 05/15/18 Range/Units 08:14 Sodium 140 (137-145) mmol/L Potassium 4.8 (3.5-5.1) mmol/L Chloride 103 (98-107) mmol/L Carbon Dioxide 26 (22-30) mmol/L BUN 12 (7-17) mg/dL Creatinine 0.72 (0.52-1.04) mg/dL Glucose 119 H (74-99) mg/dL Calcium 9.4 (8.4-10.2) mg/dL Adrenal panel 05/15/18 Range/Units 08:14 Sodium 140 (137-145) mmol/L Potassium 4.8 (3.5-5.1) mmol/L Chloride 103 (98-107) mmol/L Carbon Dioxide 26 (22-30) mmol/L BUN 12 (7-17) mg/dL Creatinine 0.72 (0.52-1.04) mg/dL Glucose 119 H (74-99) mg/dL Calcium 9.4 (8.4-10.2) mg/dL Total Bilirubin 0.7 (0.2-1.3) mg/dL AST 26 (14-36) U/L ALT 39 (9-52) U/L Alkaline Phosphatase 94 (38-126) U/L Total Protein 7.0 (6.3-8.2) g/dL Albumin 4.2 (3.5-5.0) g/dL - Imaging Chest x-ray: report reviewed, image reviewed CT scan - chest: report reviewed, image reviewed EKG: image reviewed Assessment and Plan Assessment: 1. 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 Chest pain. EKG daily next number negative troponin. 3. Multivessel coronary artery disease status post off-pump CABG 2 on 01/28/2018 4. History of hypertension 5. History of hyperlipidemia 6. History of asthma 7. History of osteoarthritis Plan: The patient was seen and examined at the bedside. Chart/diagnostics reviewed. The patient is in no acute distress. Echocardiogram was ordered to evaluate pericardial effusion. Patient's sternal wires appeared to be intact. We recommend continuing medical therapy with aspirin, statin, beta elias therapy. Continued medical management per primary care service and cardiology. Will discuss the case and review the films in detail with Dr. Mcgregor, further re commendations to be made. Thank you Dr. Mota for this consult. Please call us with any questions. Time with Patient: Greater than 30
--- NOTE | 2018-05-15 18:46 | ECHOF ---
Referral Reason:CP MEASUREMENTS -------- HEIGHT: 165.1 cm WEIGHT: 74.8 kg BP: RVIDd: 3.0 cm (< 3.3) IVSd: 1.0 cm (0.6 - 1.1) LVIDd: 4.6 cm (3.9 - 5.3) LVPWd: 1.2 cm (0.6 - 1.1) IVSs: 1.4 cm LVIDs: 3.5 cm LVPWs: 1.4 cm LA Diam: 2.6 cm (2.7 - 3.8) Ao Diam: 3.4 cm (2.0 - 3.7) AV Cusp: 2.2 cm (1.5 - 2.6) LA Diam: 3.0 cm (2.7 - 3.8) MV EXCURSION: 18.048 mm (> 18.000) MV EF SLOPE: 107 mm/s (70 - 150) EPSS: 0.2 cm MV E Nash: 0.63 m/s MV DecT: 201 ms MV A Nash: 0.67 m/s MV E/A Ratio: 0.93 AR PHT: 348 ms RAP: 5.00 mmHg RVSP: 24.03 mmHg FINDINGS -------- Sinus rhythm. This was a technically good study. LV size, wall thickness and systolic function are normal, with an EF greater than 55%. The left farzana tricular size is normal. The right ventricle is normal in size. The left atrial size is normal. The right atrial size is normal. There is mild aortic valve sclerosis. Trace to mild aortic regurgitation. Mild mitral annular calcification present. Mild mitral regurgitation is present. Mild tricuspid regurgitation present. There is no evidence of pulmonary hypertension. The right v entricular systolic pressure, as measured by Doppler, is 24.03mmHg. There is no pulmonic regurgitation present. The aortic root size is normal. There is no pericardial effusion. CONCLUSIONS -------- 1. LV size, wall thickness and systolic function are normal, with an EF greater than 55%. 2. The left ventricular size is normal. 3. The right ventricle is normal in size. 4. The left atrial size is normal. 5. The right atrial size is normal. 6. There is mild aortic valve sclerosis. 7. Trace to mild aortic regurgitation. 8. Mild mitral annular calcification present. 9. Mild mitral regurgitation is present. 10. There is no evidence of pulmonary hypertension. 11. The right ventricular systolic pressure, as measured by Doppler, is 24.03mmHg. 12. There is no pulmonic regurgitation present. 13. The aortic root size is normal. 14. There is no pericardial effusion. [facility]: Aria Naranjo RDCS
[2018-05-15] MEDS: METOPROLOL TARTRATE 50 MG TAB PO SCH (20:34)
[2018-05-16 06:23] LABS: Basophils % (A) 0 %; Eosinophils # (A) 0.4 k/uL (0-0.7); Eosinophils % (A) 5 %; HCT 40.3 % (34.0-46.0); HGB 13.3 gm/dL (11.4-16.0); Lymphocytes # (A) 1.9 k/uL (1.0-4.8); Lymphocytes % (A) 23 %; MCH 29.2 pg (25.0-35.0); MCHC 33.2 g/dL (31.0-37.0); Mean Platelet Volume 9.4; Monocytes # (A) 0.8 k/uL (0-1.0); Monocytes % (A) 9 %; Neutrophils # (A) 5.1 k/uL (1.3-7.7); Neutrophils % (A) 61 %; Platelet Count 244 k/uL (150-450); RBC 4.58 m/uL (3.80-5.40); RDW 14.7 % (11.5-15.5); WBC 8.4 k/uL (3.8-10.6)
[2018-05-16 06:45] LABS: ALT 33 U/L (9-52); AST 20 U/L (14-36); Albumin 3.6 g/dL (3.5-5.0); Alkaline Phosphatase 80 U/L (38-126); Anion Gap 7 mmol/L; Blood Urea Nitrogen 12 mg/dL (7-17); Calcium 9.2 mg/dL (8.4-10.2); Carbon Dioxide 24 mmol/L (22-30); Chloride 107 mmol/L (98-107); Glucose 97 mg/dL (74-99); Potassium 4.3 mmol/L (3.5-5.1); Sodium 138 mmol/L (137-145); Total Bilirubin 0.7 mg/dL (0.2-1.3); Total Protein 6.3 g/dL (6.3-8.2)
[2018-05-16] MEDS ORDERED: PANTOPRAZOLE 40 MG TABLET PO SCH (07:30)
[2018-05-16 07:57] VITALS: RESP 16
[2018-05-16] MEDS ORDERED: FLUTICASONE 44 MCG INHALER INHALATION SCH (08:00)
[2018-05-16] MEDS: METOPROLOL TARTRATE 50 MG TAB PO SCH (08:05)
--- NOTE | 2018-05-16 08:37 | P.PN ---
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 Previous medical history of multivessel coronary artery disease status p ost off-pump CABG 2 on 01/30/2018, hypertension, hyperlipidemia, asthma, and osteoarthritis The patient is currently sitting up in bed in no acute distress. States she did not sleep very well last night, feels a little anxious although she believes is just from being in the hospital. Pain is little better, has taken no pain medications since admission to the floor, denies any shortness of breath. Patient wants to go home. Objective - Vital Signs Vital signs: Vital Signs Temp 97.8 F 05/16/18 07:56 Pulse 81 05/16/18 07:56 Resp 16 05/16/18 07:56 BP 125/88 05/16/18 07:56 Pulse Ox 96 05/16/18 07:56 Intake & Output 05/15/18 05/16/18 05/16/18 18:59 06:59 18:59 Intake Total 420 Balance 420 Weight 70.76 kg 71.1 kg Intake: Oral 420 Other: Voiding Method Toilet # Voids 1 2 - Constitutional General appearance: Present: cooperative, no acute distress - Respiratory Details: Lungs sounds clear bilaterally. Respirations even, nonlabored. Currently on room air with oxygen saturation 96%. Strong cough. - Cardiovascular Details: S1, S2 present. Regular rate and rhythm, sinus rhythm on telemetry. Sternum stable. Palpable peripheral pulses bilaterally. No edema present. No calf pain or tenderness noted. - Gastrointestinal Gastrointestinal Comment(s): Abdomen soft, nontender, nondistended. Active bowel sounds 4 quadrants. Tolerating diet. - Genitourinary Genitourinary Comment(s): Continues to void. - Integumentary Integumentary Comment(s): Skin is warm and dry with evidence of good perfusion. Well-healed anterior chest wall incision. - Neurologic Neurologic: Present: CNII-XII intact - Musculoskeletal Musculoskeletal: Present: gait normal, strength equal bilaterally - Psychiatric Psychiatric: Present: A&O x's 3, appropriate affect, intact judgment & insight - Allied health notes Allied health notes reviewed: nursing - Labs CBC & Chem 7: 05/16/18 05:48 05/16/18 05:48 Labs: Abnormal Lab Results - Last 24 Hours (Table) 04/04/19 Range/Units 08:14 Glucose 119 H (74-99) mg/dL - Imaging and Cardiology Echocardiogram reviewed Assessment and Plan Assessment: 1. 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 Chest pain, atypical. 3. Multivessel coronary artery disease status post off-pump CABG 2 on 01/28/2018 4. History of hypertension 5. History of hyperlipidemia 6. History of asthma 7. History of osteoarthritis Plan: 1. Continue medical therapy with aspirin, statin, beta elias. 2. Computed tomography scan and echo reviewed with Dr. Mcgregor. No surgical intervention planned. 3. Patient may be discharged to home from our standpoint. 4. Medical management per primary and cardiology. 5. Please contact us with any questions. Time with Patient: Greater than 30
[2018-05-16] MEDS ORDERED: THIAMINE 100 MG TAB PO SCH (09:00)
[2018-05-16] MEDS ORDERED: ATORVASTATIN 40 MG TAB PO SCH (09:00)
[2018-05-16] MEDS ORDERED: ASPIRIN 325 MG TAB PO SCH (09:00)
[2018-05-16] MEDS ORDERED: LORATADINE 10 MG TAB PO SCH (09:00)
[2018-05-16] MEDS ORDERED: CLOPIDOGREL 75 MG TAB PO SCH (09:00)
[2018-05-16] MEDS ORDERED: LISINOPRIL 2.5 MG TAB PO SCH (09:00)
[2018-05-16 11:33] VITALS: BP 119/77; PULSE 73; TEMP 97.7
--- NOTE | 2018-05-16 11:42 | P.CRDCN ---
History of Present Illness History of present illness: This is Dr. Farrar dictating a consult on this patient The patient was interviewed and examined by me IMPRESSION / ASSESSMENT: Patient presented with atypical chest discomfort pleuritic in nature under the left breast with normal cardiac enzymes. Baseline ECG is abnormal No pericardial effusion on 2-D echo. Computed tomography scan report noted PLAN: From a cardiac standpoint a repeat troponin may be appropriate but her chest discomfort is very atypical and appears pleuritic in nature her 2-D echo is normal there is no pericardial effusion of any significance HPI Patient presented with severe discomfort under the left breast that radiated to was sent to the chest and then all over the chest. She stated it was worse when she took a deep breath. No fever chills no nausea vomiting. No dizziness lightheadedness no palpitations ROS: No fever chills or rigors, no cough, phlegm or expectoration, no nausea, vomiting or diarrhea, no hematuria, dysuria, no musculoskeletal complaints, no strokes or seizures, no skin lesions. EXAMINATION: Blood pressure 124/92 mmHg, afebrile 98.4F pulse rate in the 80s normal respirations Breath sounds are clear no rhonchi no crackles no rub Heart sounds are normal normal S1 normal S2 no rub Abdomen soft nontender External days warm no edema REVIEW OF LABS, ECG & MEDICAL DATA Hemoglobin 13.3 Normal electrolytes normal renal function Past Medical History Past Medical History: Asthma, Coronary Artery Disease (CAD), Hyperlipidemia, Hypertension, Osteoarthritis (OA), Skin Disorder Additional Past Medical History / Comment(s): diverticulosis, eczema, migraines, shingles x2 last time was 5-7 years ago. in past was on bp meds but dr took her off it several years ago History of Any Multi-Drug Resistant Organisms: None Reported Past Surgical History: Coronary Bypass/CABG, Heart Catheterization, Hernia Repair, Orthopedic Surgery, Tonsillectomy Additional Past Surgical History / Comment(s): ORIF Right ankle, colonoscopy, "hernia repair as ", off-pump CABG 2 on 01/30/2018 Past Anesthesia/Blood Transfusion Reactions: No Reported Reaction Past Psychological History: No Psychological Hx Reported Smoking Status: Never smoker Past Alcohol Use History: None Reported Past Drug Use History: None Reported - Past Family History Mother Family Medical History: CVA/TIA Additional Family Medical History / Comment(s): tia Father Additional Family Medical History / Comment(s): back sx Medications and Allergies Home Medications Medication Instructions Recorded Confirmed Type Fexofenadine HCl 180 mg PO DAILY 09/20/16 05/15/18 History Fluticasone Propionate [Flovent 2 puff INHALATION RT-DAILY 01/22/18 05/15/18 History Hfa 44 mcg] Aspirin 325 mg PO DAILY tab 02/03/18 05/15/18 Rx Atorvastatin [Lipitor] 40 mg PO DAILY 30 Days #30 tab 02/03/18 05/15/18 Rx Clopidogrel [Plavix] 75 mg PO DAILY #30 tab 02/03/18 05/15/18 Rx Lisinopril [Zestril] 2.5 mg PO DAILY #30 tab 02/03/18 05/15/18 Rx Metoprolol Tartrate [Lopressor] 50 mg PO BID #120 tab 02/03/18 05/15/18 Rx Pantoprazole [Protonix] 40 mg PO AC-BRKFST #30 tablet. 02/03/18 05/15/18 Rx Multivitamin/Iron/Folic Acid 1 tab PO DAILY 05/15/18 05/15/18 History [Centrum Adults Tablet] Thiamine [Vitamin B-1] 100 mg PO DAILY 05/15/18 05/15/18 History Allergies Allergy/AdvReac Type Severity Reaction Status Date / Time amoxicillin AdvReac Rash/Hives Verified 05/15/18 10:04 cefaclor [From Ceclor] AdvReac Rash/Hives Verified 05/15/18 10:04 Physical Exam Vitals: Vital Signs Temp Pulse Resp BP Pulse Ox 05/16/18 11:33 97.7 F 73 16 119/77 97 05/16/18 07:56 97.8 F 81 16 125/88 96 05/16/18 04:00 98.4 F 82 18 124/92 97 05/16/18 00:00 98.5 F 78 16 106/80 95 05/15/18 20:00 99.2 F 83 18 135/84 100 05/15/18 15:54 81 20 116/82 97 05/15/18 14:51 96.7 F L 82 20 128/96 92 L Intake and Output 05/15/18 05/16/18 05/16/18 22:59 06:59 14:59 Intake Total 420 118 Balance 420 118 Intake: Oral 420 118 Other: Voiding Method Toilet Toilet # Voids 1 2 Weight 71.1 kg Results 05/16/18 05:48 05/16/18 05:48 Cardiac Enzymes 05/16/18 Range/Units 05:48 AST 20 (14-36) U/L CBC 05/16/18 Range/Units 05:48 WBC 8.4 (3.8-10.6) k/uL RBC 4.58 (3.80-5.40) m/uL Hgb 13.3 (11.4-16.0) gm/dL Hct 40.3 (34.0-46.0) % Plt Count 244 (150-450) k/uL Comprehensive Metabolic Panel 05/16/18 Range/Units 05:48 Sodium 138 (137-145) mmol/L Potassium 4.3 (3.5-5.1) mmol/L Chloride 107 (98-107) mmol/L Carbon Dioxide 24 (22-30) mmol/L BUN 12 (7-17) mg/dL Creatinine 0.69 (0.52-1.04) mg/dL Glucose 97 (74-99) mg/dL Calcium 9.2 (8.4-10.2) mg/dL AST 20 (14-36) U/L ALT 33 (9-52) U/L Alkaline Phosphatase 80 (38-126) U/L Total Protein 6.3 (6.3-8.2) g/dL Albumin 3.6 (3.5-5.0) g/dL Current Medications Generic Name Dose Route Start Last Admin Trade Name Freq PRN Reason Stop Dose Admin Acetaminophen 650 mg 05/15/18 11:07 Tylenol Tab PO Q6HR PRN Mild Pain or Fever > 100.5 Aspirin 325 mg 05/16/18 09:00 05/16/18 08:05 Aspirin PO 325 mg DAILY ARSENIO Administration Atorvastatin Calcium 40 mg 05/16/18 09:00 05/16/18 08:05 Lipitor PO 40 mg DAILY ARSENIO Administration Clopidogrel Bisulfate 75 mg 05/16/18 09:00 05/16/18 08:05 Plavix PO 75 mg DAILY ARSENIO Administration Fluticasone Propionate 2 puff 05/16/18 08:00 05/16/18 08:52 Flovent 44 Mcg Inhaler INHALATION Not Given RT-DAILY ARSENIO Lisinopril 2.5 mg 05/16/18 09:00 05/16/18 08:05 Zestril PO 2.5 mg DAILY ARSENIO Administration Loratadine 10 mg 05/16/18 09:00 05/16/18 08:05 Claritin PO 10 mg DAILY ARSENIO Administration Metoprolol Tartrate 50 mg 05/15/18 21:00 05/16/18 08:05 Lopressor PO 50 mg BID ARSENIO Administration Morphine Sulfate 4 mg 05/15/18 11:07 Morphine Sulfate (Inj) IV Q4HR PRN Severe Pain Multivitamins 1 each 05/16/18 12:00 Theragran PO DAILY@1200 [facility] Naloxone HCl 0.2 mg 05/15/18 11:07 Narcan IV Q2M PRN Opioid Reversal Pantoprazole Sodium 40 mg 05/16/18 07:30 05/16/18 06:07 Protonix PO Not Given AC-BRKFST [facility] Thiamine HCl 100 mg 05/16/18 09:00 05/16/18 08:04 Vitamin B-1 PO 100 mg DAILY ARSENIO Administration Intake and Output 05/15/18 05/16/18 05/16/18 22:59 06:59 14:59 Intake Total 420 118 Balance 420 118 Intake: Oral 420 118 Other: Voiding Method Toilet Toilet # Voids 1 2 Weight 71.1 kg 05/16/18 05:48 05/16/18 05:48
[2018-05-16] MEDS ORDERED: MULTIVITAMINS, THERA 1 EACH TAB PO SCH (12:00)
--- NOTE | 2018-05-16 13:21 | P.DS ---
Providers Date of admission: 05/15/18 11:07 Expected date of discharge: 05/16/18 Attending physician: Luan Mota Consults: 05/15/18 11:08 Consult Physician Routine Consulting Provider: Fernandez Mooney Consult Reason/Comments: Chest pain, pericardial effusion Do you want consulting provider notified?: Yes 05/15/18 13:46 Consult Physician Routine Consulting Provider: Diana Mcgregor Consult Reason/Comments: Recent open heart, CTA result Do you want consulting provider notified?: Yes Primary care physician: Luan [facility]vet[facility] Course: Discharge diagnosis 1. Chest pain. Chest x-ray performed showing no acute cardiopulmonary process. Initial troponin negative. CTA performed showing small pericardial effusion and widening of the sternotomy margins. Cardiology and cardiothoracic surgery has been consulted. 2-D echo completed showing an EF of greater than 55%. Per cardiology at the second troponin was ordered but patient refused. Patient has been cleared for discharge from cardiology standpoint. 2. Recent coronary artery bypass graft surgery. Patient had two-vessel in January 2018. Per cardiothoracic surgery continue medical therapy with aspirin and beta elias. Computed tomography scan was reviewed. Patient has been cleared for discharge from cardiothoracic standpoint 3. History of hyperlipidemia 4. History of essential hypertension 5. History of asthma no exacerbation at this time 6. History of diverticulosis Hospital course This is a 52-year-old female patient who presents to the ER with complaints of chest pain. Patient reports that chest pain started last night and was under left breast area. Patient states that pain was consistent. Patient describes pain as a dull ache. Patient denies any associated shortness of breath. Patient does report that her shoulder has been in pain but this is been ongoing since March and patient is following with orthopedic services. Patient denies nausea vomiting or diaphoresis with chest pain. Patient recently underwent on a artery bypass graft surgery 2 in January 2018. Additional medical history includes asthma, hyperlipidemia, hypertension, osteoarthritis and diverticulosis. Chest x-ray completed showing no acute cardiopulmonary process. CT of chest completed showing no pulmonary embolism. Post CABG changes. There is small pericardial effusion and edema soft tissue thickening at the substernal region. The patient's sternotomy remains non-united. Also there is slight widening of the sternotomy margins level of the manubrium and some patchy ostial lysis at the midsternal body. Consider delayed union. Exclude underlying infection as these changes appear more prominent than expected this far from surgery. Trace left pleural effusion. Aneurysmal ascending aorta 4.2 cm. Small hiatal hernia. 1.7 cm nodularity right adrenal gland statistically represents benign adrenal adenoma 1 year follow-up can be pe rformed. EKG completed showing normal sinus rhythm. Initial troponin negative. Cardiology services have been consulted. Cardiothoracic surgery also consulted. At this time patient states chest pain has improved. Patient denies shortness of breath. Patient denies nausea vomiting or diarrhea. Patient denies any urinary burning or frequency. On 05/16/2018 patient is alert and oriented 3. Patient states that she is very difficult home. Patient has refused second troponin. Patient has been cleared for discharge from cardiology and cardiothoracic standpoint. At this time patient denies chest pain or shortness breath. Patient denies nausea vomiting or diarrhea. Patient denies any urinary burning or frequency I performed an examination of the patient and discussed their management with the Nurse Practitioner. I have reviewed the Nurse Practitioner's notes and agree with the documented findings and plan of care Patient Condition at Discharge: Stable Plan - Discharge Summary New Discharge Prescriptions: Continue Fexofenadine HCl 180 mg PO DAILY Fluticasone Propionate [Flovent Hfa 44 mcg] 2 puff INHALATION RT-DAILY Aspirin 325 mg PO DAILY tab Clopidogrel [Plavix] 75 mg PO DAILY #30 tab Lisinopril [Zestril] 2.5 mg PO DAILY #30 tab Metoprolol Tartrate [Lopressor] 50 mg PO BID #120 tab Pantoprazole [Protonix] 40 mg PO AC-BRKFST #30 tablet. Atorvastatin [Lipitor] 40 mg PO DAILY 30 Days #30 tab Thiamine [Vitamin B-1] 100 mg PO DAILY Multivitamin/Iron/Folic Acid [Centrum Adults Tablet] 1 tab PO DAILY Discharge Medication List Fexofenadine HCl 180 mg PO DAILY 09/20/16 [History] Fluticasone Propionate [Flovent Hfa 44 mcg] 2 puff INHALATION RT-DAILY 01/22/18 [History] Aspirin 325 mg PO DAILY tab 02/03/18 [Rx] Atorvastatin [Lipitor] 40 mg PO DAILY 30 Days #30 tab 02/03/18 [Rx] Clopidogrel [Plavix] 75 mg PO DAILY #30 tab 02/03/18 [Rx] Lisinopril [Zestril] 2.5 mg PO DAILY #30 tab 02/03/18 [Rx] Metoprolol Tartrate [Lopressor] 50 mg PO BID #120 tab 02/03/18 [Rx] Pantoprazole [Protonix] 40 mg PO AC-BRKFST #30 tablet.dr 02/03/18 [Rx] Multivitamin/Iron/Folic Acid [Centrum Adults Tablet] 1 tab PO DAILY 05/15/18 [History] Thiamine [Vitamin B-1] 100 mg PO DAILY 05/15/18 [History] Follow up Appointment(s)/Referral(s): Luan Mota MD [Primary Care Provider] - 1-2 days Attila Farrar MD [STAFF PHYSICIAN] - 1 Week Patient Instructions/Handouts: Pericardial Effusion (DC) Discharge Disposition: HOME SELF-CARE
== END 2018-05-16 14:07 | disposition home or self-care (01) | DRG 313 ==
LOC: EC 07:50 → 3SCARD 11:07
PROVIDERS: ADMIT Internal Medicine; ATTEND Internal Medicine
DX: R07.89 Other chest pain (principal); I31.3 Pericardial effusion (noninflammatory); T81.32XA Disruption of internal operation (surgical) wound, not elsewhere classified, initial encounter; I71.2 Thoracic aortic aneurysm, without rupture; I25.10 Atherosclerotic heart disease of native coronary artery without angina pectoris; M25.512 Pain in left shoulder; E78.5 Hyperlipidemia, unspecified; I10 Essential (primary) hypertension; J45.909 Unspecified asthma, uncomplicated; K57.90 Diverticulosis of intestine, part unspecified, without perforation or abscess without bleeding; M19.90 Unspecified osteoarthritis, unspecified site; K44.9 Diaphragmatic hernia without obstruction or gangrene; G43.909 Migraine, unspecified, not intractable, without status migrainosus; D35.00 Benign neoplasm of unspecified adrenal gland; L30.9 Dermatitis, unspecified; Z79.82 Long term (current) use of aspirin; Z79.02 Long term (current) use of antithrombotics/antiplatelets; Z79.51 Long term (current) use of inhaled steroids; Z79.899 Other long term (current) drug therapy; Z95.1 Presence of aortocoronary bypass graft; Z88.1 Allergy status to other antibiotic agents; Z88.0 Allergy status to penicillin; Z86.19 Personal history of other infectious and parasitic diseases
CPT/HCPCS: 36415; 71046; 71275; 80053; 82550; 82553; 83735; 83880; 84484; 85025; 85610; 85730; 93005; 93306; 99285

== ENCOUNTER 2018-08-26 08:47 | Day surgery (SDC) | payer BC ==
[2018-08-22 14:41] VITALS: BMI 23.9
--- NOTE | 2018-08-25 12:14 | HP ---
HISTORY AND PHYSICAL CHIEF COMPLAINT: Left shoulder pain and stiffness. 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 She has tried therapy and medications with increasing pain and stiffness. PAST MEDICAL HISTORY: Significant for asthma, hypercholesterolemia, heart disease and hypertension. PAST SURGICAL HISTORY: Significant for coronary artery bypass grafting, ankle surgery, foot surgery, and tonsillectomy. CURRENT MEDICATIONS: 1. Aspirin. 2. Fexofenadine. 3. Flovent. 4. Lipitor. 5. Metoprolol. 6. Plavix. 7. Protonix. 8. Zestril. She notes allergies to CEFACLOR and AMOXICILLIN. FAMILY HISTORY: Significant for rheumatoid arthritis and cancer. SOCIAL HISTORY: Significant for social alcohol use. REVIEW OF SYSTEMS: A 16-point review of systems otherwise reviewed and is noncontributory. PHYSICAL EXAMINATION: On examination, the patient is approximately 5 foot 5, 154 pounds of mesomorphic habitus. HEENT exam is nonfocal. Neck is supple. On examination of her left shoulder, she is tender about the anterior subacromial space. She has moderate subacromial crepitus. Active range of motion, forward elevation 95 degrees. Passively I am able to forward elevate her 95 degrees. External rotation with arm at sides 10 degrees, internal rotation is to L4. Motor strength is 5/5 for abduction and external rotation. Impingement test and Neer tests are positive. Her distal neurovascular appears intact in the left upper extremity. IMPRESSION: Left shoulder adhesive capsulitis. RECOMMENDATIONS: I talked to the patient at length regarding her condition along with treatment options. At this point, she remains quite symptomatic despite adequate conservative measures. After thorough discussion, she opts to proceed with manipulation under anesthesia. We will have her start a Medrol Dosepak directly after this procedure. We will also reinstitute formal therapy. Risks and benefits were discussed at length in layman's terms. MMODL / IJN: [id number] /
[~2018-08-26 08:47] MED LIST changes: -ALBUMIN HUMAN 25% 50 ML IV ONE; -ASPIRIN 325 MG TAB PO ONE; -ATORVASTATIN 10 MG TAB PO ONE; -CALCIUM CHLORIDE 100 MG/ML 10 ML SYRINGE IV ONE; -CARDIOPLEGIC SOLN (K+ 16 MEQ/L 1,000 ML with SODIUM BICARB (1 MEQ/ML) 20 ML, LIDOCAINE ... PERFUSION ONE; -CHLORHEXIDINE GLUCONATE 15 ML CUP MUCOUS MEM ONE; -CLEVIDIPINE BUTYRATE 25 MG in EMPTY BAG 1 BAG IV ONE; -DILTIAZEM 50 MG in SODIUM CHLORIDE 0.9% 40 ML IV ONE; -HEPARIN SODIUM 1,000 UN/ML (10ML VL) IV ONE; -HEPARIN SODIUM,PORCINE 5,000 UNIT in SODIUM CHLORIDE 0.9% 500 ML 500 ML IV ONE; -INSULIN REGULAR 100 UNIT in SODIUM CHLORIDE 0.9% 100 ML IV ONE; -LACTATED RINGERS 1,000 ML IV ONE; +LIDOCAINE 1% 20 ML VIAL (10MG/ML) FOR IV START INTRADERMA PRN; -MAGNESIUM SULFATE MG 500 MG/ML IV ONE; -MANNITOL 25% 12.5 GM/50 ML VIAL IV ONE; -METOPROLOL TARTRATE 12.5 MG TAB PO ONE; -MIDAZOLAM (PF) 2 MG/2 ML VIAL IV PRN; -NITROGLYCERIN-D5W PMX 25 MG/250 ML BTL IV ONE; -NITROGLYCERIN-D5W PMX 50 MG in DEXTROSE/WATER 1 250ML.BAG IV ONE; -NOREPINEPHRINE 4 MG in SODIUM CHLORIDE 0.9% 250 ML IV ONE; -PAPAVERINE 360 MG in SODIUM CHLORIDE 0.9% 90 ML IV ONE; -PHENYLEPHRINE 40 MG in SODIUM CHLORIDE 0.9% 250 ML IV ONE; -PHENYLEPHRINE-0.9% NACL SYG 1 MG/10 ML SYRINGE IV ONE; -PROPOFOL 1,000 MG/100 ML VIAL IV ONE; -PROTAMINE SULFATE 10 MG/ML 25 ML VIAL IV ONE; -PROTAMINE SULFATE 250 MG in EMPTY BAG 1 BAG IV ONE; +Pre Op ABX Message 1 EACH MISC MISCELLANE ONE; -SODIUM BICARB 8.4% 50 ML SYR (1 MEQ/ML) IV ONE; -SODIUM CHLORIDE 0.9% 1,000 ML IV ONE; -TRANEXAMIC ACID 2,000 MG in SODIUM CHLORIDE 0.9% 180 ML IV ONE; -ceFAZolin 1,000 MG in SODIUM CHLORIDE 0.9% IRRIGATIO 1,000 ML IRRIGATION ONE; -ceFAZolin 2,000 MG in SODIUM CHLORIDE 0.9% 30 ML IVPB ONE; -ceFAZolin IN SWFI 2 GM/20 ML SYRINGE IVP ONE; -fentaNYL (PF) 50 MCG/ML 2 ML AMP IVP PRN
[2018-08-26 09:11] VITALS: TEMP 97.7
[2018-08-26] MEDS ORDERED: fentaNYL (PF) 50 MCG/ML 2 ML AMP ONE (10:15)
[2018-08-26] MEDS ORDERED: PROPOFOL 10 MG/ML 20 ML VIAL IV ONE (10:15)
[2018-08-26] MEDS ORDERED: MIDAZOLAM 2 MG/2 ML VIAL ONE (10:15)
--- NOTE | 2018-08-26 10:28 | P.OP ---
Date of Procedure: 08/26/18 Preoperative Diagnosis: Left shoulder adhesive capsulitis Postoperative Diagnosis: Same Procedure(s) Performed: Manipulation under anesthesia left shoulder Anesthesia: MAC Surgeon: Boris Barnes Estimated Blood Loss (ml): 0 Pathology: none sent Condition: stable Disposition: PACU Indications for Procedure: The patient's a 52-year-old female who presents with progressive left shoulder pain and stiffness secondary to adhesive capsulitis despite conservative measures. A discussion of the risks and benefits of manipulation under anesthesia was made with patient. She opted to proceed. Risks of this procedure to include fracture, dislocation, tendon rupture, possible recurrence of stiffness and need for subsequent procedures was discussed. Informed consent was obtained. Operative Findings: Significant adhesions Description of Procedure: The patient was brought to the recovery room, and after induction of IV sedation the shoulder was then gently manipulated first with the arm at her side obtaining full external rotation. Significant adhesions were encountered. I then obtained full forward elevation. Again there were significant adhesions. I felt I had adequate release at this point. The patient was then monitored until fully awake. No consultations were incurred. There was no blood loss.
[2018-08-26 10:49] VITALS: RESP 16
[2018-08-26] MEDS ORDERED: ONDANSETRON 4 MG/2 ML VIAL IVP ONE (11:21)
[2018-08-26 11:34] VITALS: BP 95/52; PULSE 62
== END 2018-08-26 12:07 | disposition home or self-care (01) ==
LOC: OR 08:47
PROVIDERS: ATTEND Orthopaedic Surgery
DX: M75.02 Adhesive capsulitis of left shoulder (principal); J45.909 Unspecified asthma, uncomplicated; E78.00 Pure hypercholesterolemia, unspecified; I25.10 Atherosclerotic heart disease of native coronary artery without angina pectoris; I11.9 Hypertensive heart disease without heart failure; E78.5 Hyperlipidemia, unspecified; K21.9 Gastro-esophageal reflux disease without esophagitis; Z95.1 Presence of aortocoronary bypass graft; Z79.02 Long term (current) use of antithrombotics/antiplatelets; Z79.82 Long term (current) use of aspirin; Z79.899 Other long term (current) drug therapy; Z88.1 Allergy status to other antibiotic agents; Z88.0 Allergy status to penicillin
CPT/HCPCS: 23700; J2250; J2405; J3010; J2704

== ENCOUNTER → 2018-11-21 | Outpatient (CLI) | payer BC ==
[2018-11-21 11:49] LABS: African American GFR (CKD) 84.6 (60.0-200.0); Albumin 4.1 g/dL (3.80-4.90); Albumin/Globulin Ratio 2.05 (1.60-3.17); Anion Gap 8.2 mmol/L (4.00-12.00); BUN/Creat Ratio 14.44 Ratio (12.00-20.00); Calcium 9.2 mg/dL (8.7-10.3); Carbon Dioxide 28.8 mmol/L (21.6-31.8); Chol/HDL Ratio 2.38; LDL Cholesterol,Calculated 53.8 mg/dL (0.0-131.0); Potassium 4.3 mmol/L (3.5-5.5); Total Bilirubin 0.7 mg/dL (0.2-1.2); Total Protein 6.1 g/dL (6.2-8.2); VLDL Calculation 19.2 mg/dL (5.00-40.00)
== END | disposition home or self-care (01) ==
LOC: LABWHC1 07:33
PROVIDERS: ATTEND Internal Medicine Interventional Cardiology
DX: E78.2 Mixed hyperlipidemia (principal)
CPT/HCPCS: 36415; 80053; 80061

== ENCOUNTER → 2019-07-02 | Outpatient (CLI) | payer BC ==
--- NOTE | 2019-07-02 10:03 | CT ---
EXAMINATION TYPE: CT angio chest DATE OF EXAM: 07/02/2019 COMPARISON: 05/15/2018 HISTORY: Follow up aneurysm. No complaints at time of scan. CT DLP: 392.2 mGycm. Automated Exposure Control for Dose Reduction was Utilized. CONTRAST: CTA scan of the thorax is performed with IV Contrast, patient injected with 100 mL of Isovue 370, pul monary embolism protocol. MIP Images are created on CT scanner and reviewed. FINDINGS: LUNGS: The lungs are grossly clear, there is no concerning parenchymal mass or nodule identified. M inimal multifocal linear scarring. There is no pleural effusion or pneumothorax seen. The tracheobro nchial tree is patent. MEDIASTINUM: The ascending thoracic aorta measures up to 4.1 cm on coronal series 402 image 33, mildl y dilated and similar measurement to the prior. Aortic root is not enlarged measuring 3.4 cm. Proxima l thoracic aorta is also not enlarged measuring 2.2 cm and descending thoracic aorta measures 2.1 cm distally. Conventional three-vessel branch. Aortic arch is seen. No dissection is seen in the visuali zed portions of the thoracic aorta. Postsurgical change of the known coronary artery bypass grafting. There is satisfactory enhancement of the pulmonary artery and its branches, there is no CT evidence f or pulmonary embolism. There are no greater than 1 cm hilar or mediastinal lymph nodes. No cardiom egaly. Nearly resolved pericardial effusion. Minimal residual strand-like density in the superior ant erior mediastinum most commonly relates to residual thymic tissue. This is unchanged from the prior. OTHER: There is a very small hiatal hernia. There is slight thickening of the right adrenal gland sim ilar to the prior, likely on the basis of adrenal gland hyperplasia. Minimal degenerative change of t he spine. Sternotomy is again nonunited. IMPRESSION: 1. No progression in size of the mildly dilated thoracic aorta, with caliber just above criteria for aneurysmal dilatation. 2. Near complete resolution of the previously seen pericardial effusion. 3. Stability and appearance of the right adrenal gland thickening in comparison to 05/15/2018.
== END | disposition home or self-care (01) ==
LOC: RADCTMAIN 08:47
PROVIDERS: ATTEND Internal Medicine Interventional Cardiology
DX: I71.2 Thoracic aortic aneurysm, without rupture (principal)
CPT/HCPCS: 71275; Q9967

== ENCOUNTER → 2019-12-01 | Outpatient (CLI) | payer BC ==
[2019-12-01 14:56] LABS: African American GFR (CKD) 96.9 (60.0-200.0); Albumin/Globulin Ratio 1.82 (1.60-3.17); Anion Gap 7.6 mmol/L (4.00-12.00); BUN/Creat Ratio 18.75 Ratio (12.00-20.00); Calcium 9.2 mg/dL (8.7-10.3); Carbon Dioxide 27.4 mmol/L (21.6-31.8); Chol/HDL Ratio 2.68; Globulin 2.2 g/dL (1.6-3.3); Non-African American GFR(CKD) 83.6 (60.0-200.0); Potassium 4.5 mmol/L (3.5-5.5); Total Bilirubin 0.6 mg/dL (0.2-1.2); Total Protein 6.2 g/dL (6.2-8.2)
== END | disposition home or self-care (01) ==
LOC: LABWHC1 07:47
PROVIDERS: ATTEND Nurse Practitioner Adult Health
DX: I10 Essential (primary) hypertension (principal); E78.2 Mixed hyperlipidemia
CPT/HCPCS: 36415; 80053; 80061

== ENCOUNTER → 2020-05-09 | Outpatient (CLI) | payer BC ==
[2020-05-09 17:20] LABS: African American GFR (CKD) 96.9 (60.0-200.0); Albumin 4.4 g/dL (3.80-4.90); Albumin/Globulin Ratio 2.1 (1.60-3.17); Anion Gap 5.9 mmol/L (4.00-12.00); Calcium 9.2 mg/dL (8.7-10.3); Carbon Dioxide 28.1 mmol/L (21.6-31.8); Chol/HDL Ratio 2.71; Globulin 2.1 g/dL (1.6-3.3); LDL Cholesterol,Calculated 81.6 mg/dL (0.0-131.0); Non-African American GFR(CKD) 83.6 (60.0-200.0); Potassium 4.5 mmol/L (3.5-5.5); Total Bilirubin 0.7 mg/dL (0.3-1.2); Total Protein 6.5 g/dL (6.2-8.2); VLDL Calculation 19.4 mg/dL (5.00-40.00)
== END | disposition home or self-care (01) ==
LOC: LABWHC1 08:10
PROVIDERS: ATTEND Internal Medicine Interventional Cardiology
DX: E78.2 Mixed hyperlipidemia (principal)
CPT/HCPCS: 36415; 80053; 80061

== ENCOUNTER → 2020-05-11 | Outpatient (CLI) | payer BC ==
--- NOTE | 2020-05-13 11:04 | MM ---
Reason for exam: screening (asymptomatic). Last mammogram was performed 1 year and 1 month ago. History: Patient is postmenopausal and is nulliparous. Took hormonal contraceptives for 15 years. Physical Findings: A clinical breast exam by your physician is recommended on an annual basis and results should be correlated with mammographic findings. MG 3D Screening Mammo W/Cad Bilateral CC and MLO view(s) were taken. Prior study comparison: April 01, 2019, bilateral MG 3d screening mammo w/cad. February 16, 2017, bilateral MG screening mammo w CAD. The breast tissue is extremely dense which could obscure a lesion on mammography. No significant changes when compared with prior studies. ASSESSMENT: Benign, BI-RAD 2 RECOMMENDATION: Routine screening mammogram of both breasts in 1 year.
== END | disposition home or self-care (01) ==
LOC: RADMAMWWP 12:33
PROVIDERS: ATTEND Internal Medicine
DX: Z12.31 Encounter for screening mammogram for malignant neoplasm of breast (principal); Z78.0 Asymptomatic menopausal state
CPT/HCPCS: 77063; 77067

== ENCOUNTER → 2020-06-27 | Outpatient (CLI) | payer BC ==
[2020-06-27 16:05] LABS: Chol/HDL Ratio 2.37
== END | disposition home or self-care (01) ==
LOC: LABWHC1 08:05
PROVIDERS: ATTEND Nurse Practitioner Adult Health
DX: E78.2 Mixed hyperlipidemia (principal)
CPT/HCPCS: 36415; 80061; 84450; 84460

== ENCOUNTER → 2021-05-12 | Outpatient (CLI) | payer BC ==
--- NOTE | 2021-05-15 10:50 | MM ---
Reason for exam: screening (asymptomatic). Last mammogram was performed 1 year ago. History: Patient is postmenopausal and is nulliparous. Took hormonal contraceptives for 15 years. Physical Findings: A clinical breast exam by your physician is recommended on an annual basis and results should be correlated with mammographic findings. MG 3D Screening Mammo W/Cad Bilateral CC and MLO view(s) were taken. Prior study comparison: May 11, 2020, bilateral MG 3d screening mammo w/cad. April 01, 2019, bilateral MG 3d screening mammo w/cad. The breast tissue is heterogeneously dense. This may lower the sensitivity of mammography. There is chronic nodularity in the left breast. There is no discrete abnormality. ASSESSMENT: Negative, BI-RAD 1 RECOMMENDATION: Routine screening mammogram of both breasts in 1 year.
== END | disposition home or self-care (01) ==
LOC: RADMAMWWP 07:52
PROVIDERS: ATTEND Internal Medicine
DX: Z12.31 Encounter for screening mammogram for malignant neoplasm of breast (principal); Z78.0 Asymptomatic menopausal state
CPT/HCPCS: 77063; 77067

== ENCOUNTER → 2021-05-31 | Outpatient (CLI) | payer BC ==
--- NOTE | 2021-05-31 08:40 | BD ---
EXAMINATION TYPE: Axial Bone Density DATE OF EXAM: 05/31/2021 COMPARISON: NONE CLINICAL HISTORY: 55 years year old Female. ICD-10 CODE: Z78.0 Post Menopausal Height: 64.2 IN Weight: 177 LBS RISK FACTORS HISTORY OF: Family History of Osteoporosis: YES MOTHER Active: YES Postmenopausal woman: AGE 51 MEDICATIONS: Additional Medications: HEART MEDS, CHOLESTEROL MEDS, ALLERGY MEDS, EXAM MEASUREMENTS: Bone mineral densitometry was performed using the [employer]tr[employer] System. Bone mineral density as measured about the Lumbar spine is: ----- L1-L4(G/cm2): 1.018 T Score Values are as follows: ----- L1: -1.3 ----- L2: -2.2 ----- L3: -1.1 ----- L4: -1.1 ----- L1-L4: -1.3 Bone mineral density BASELINE Bone mineral density about the R hip (g/cm2): 0.886 Bone mineral density about the L hip (g/cm2): 0.881 T Score values are as follows: -----R Neck: -1.1 -----L Neck: -1.1 -----R Total: -0.6 -----L Total: 0.0 Bone mineral density BASELINE FRAX%s: The graph provided illustrates a 5.9 chance for a major osteoporotic fx and a 0.3 chance for the hips probability for fx in 10 years time. IMPRESSION: Osteopenia lumbar spine NOTE: T-SCORE=SD OF THE YOUNG ADULT MEAN.
== END | disposition home or self-care (01) ==
LOC: RADBDWWP 07:57
PROVIDERS: ATTEND Internal Medicine
DX: M85.89 Other specified disorders of bone density and structure, multiple sites (principal); Z78.0 Asymptomatic menopausal state
CPT/HCPCS: 77080

== ENCOUNTER → 2022-05-14 | Outpatient (CLI) | payer BC ==
--- NOTE | 2022-05-15 08:36 | MM ---
Reason for Exam: Screening (asymptomatic). Last screening mammogram was performed 12 month(s) ago. Patient History: Menarche at age 11. Patient has no children. Postmenopausal. Hormonal Contraceptives for 15 years until age 40. Risk Values: Danii 5 year model risk: 1.5%. NCI Lifetime model risk: 9.7%. Prior Study Comparison: 04/01/2019 Bilateral Screening Mammogram, [facility]. 05/11/2020 Bilateral Screening Mammogram, [facility]. 05/12/2021 Bilateral Screening Mammogram, [facility]. Tissue Density: The breast tissue is heterogeneously dense. This may lower the sensitivity of mammography. Findings: Analyzed By CAD. There is no suspicious group of microcalcifications or new suspicious mass in either breast. Overall Assessment: Benign, BI-RAD 2 Management: Screening Mammogram of both breasts in 1 year. A clinical breast exam by your physician is recommended on an annual basis and results should be correlated with mammographic findings. Electronically signed and approved by: Aleksandr Paul M.D. Radiologis
== END | disposition home or self-care (01) ==
LOC: RADMAMWWP 09:57
PROVIDERS: ATTEND Obstetrics & Gynecology
DX: Z12.31 Encounter for screening mammogram for malignant neoplasm of breast (principal); Z78.0 Asymptomatic menopausal state
CPT/HCPCS: 77063; 77067

== ENCOUNTER → 2022-12-21 | Outpatient (CLI) | payer BC ==
--- NOTE | 2022-12-21 15:36 | CT ---
EXAMINATION TYPE: CT angio chest DATE OF EXAM: 12/21/2022 3:24 PM COMPARISON: 07/02/2019 HISTORY: f/u thoracic aneurysm CT DLP: 880 mGycm Automated exposure control for dose reduction was used. CONTRAST: CTA scan of the thorax is performed with IV Contrast, patient injected with 100 mL of Isovue 370, pul monary embolism protocol. 3-D postprocessing was performed.. FINDINGS: There is no suspicious lung mass or nodule. There is no abnormal airspace/consolidative density or abnormal interstitial density. There is no pleural effusion, pleural thickening or pneumothorax. There is stable aneurysmal dilatation of the ascending thoracic aorta which measures 4.[address] dimension. There is no mediastinal, hilar or axillary adenopathy. Limited scanning through the upper abdomen reveals no gross abnormality. Incidental note is made of a small hiatal hernia. No focal osseous lesions are seen. IMPRESSION: 1. Stable 4.2 cm ascending thoracic aorta fusiform aneurysm. 2. No acute cardiopulmonary disease. 3. Small hiatal hernia.
== END | disposition home or self-care (01) ==
LOC: RADCTMAIN 14:36
PROVIDERS: ATTEND Internal Medicine Interventional Cardiology
DX: K44.9 Diaphragmatic hernia without obstruction or gangrene (principal); I71.21 Aneurysm of the ascending aorta, without rupture
CPT/HCPCS: 71275; Q9967

== ENCOUNTER → 2023-01-01 | Outpatient (CLI) | payer BC ==
[2023-01-01 18:30] LABS: ALT 31 U/L (8-44); AST 27 U/L (13-35); Chol/HDL Ratio 2.66 Ratio; LDL Cholesterol,Calculated 59.8 mg/dL (0.0-131.0); VLDL Calculation 19.44 mg/dL (5.00-40.00)
== END | disposition home or self-care (01) ==
LOC: LABWHC1 08:09
PROVIDERS: ATTEND Internal Medicine Interventional Cardiology
DX: E78.2 Mixed hyperlipidemia (principal)
CPT/HCPCS: 36415; 80061; 84450; 84460

== ENCOUNTER → 2023-05-16 | Outpatient (CLI) | payer BC ==
--- NOTE | 2023-05-16 13:10 | MM ---
Reason for Exam: Screening (asymptomatic). Last screening mammogram was performed 12 month(s) ago. Patient History: Menarche at age 11. Patient has no children. Postmenopausal. Hormonal Contraceptives for 15 years until age 40. Risk Values: Danii 5 year model risk: 1.6%. NCI Lifetime model risk: 9.5%. Prior Study Comparison: 05/11/2020 Bilateral Screening Mammogram, [facility]. 05/12/2021 Bilateral Screening Mammogram, [facility]. 05/14/2022 Bilateral MG 3D screening mammo w/cad, [facility]. Tissue Density: The breasts are heterogeneously dense, which may obscure small masses. Findings: Analyzed By CAD. There is no suspicious group of microcalcifications or new suspicious mass in either breast. Overall Assessment: Negative, BI-RAD 1 Management: Screening Mammogram of both breasts in 1 year. . Patient should continue monthly self-breast exams. A clinical breast exam by your physician is recommended on an annual basis. This exam should not preclude additional follow-up of suspicious palpable abnormalities. Note on Danii scores and lifetime risk: 1. A Danii score greater than 3% is considered moderate risk. If this is the case, consider specialist referral to assess eligibility for a risk reducing agent. 2. If overall lifetime risk for the development of breast cancer is 20% or higher, the patient may qualify for future screening with alternating mammogram and breast MRI. Electronically signed and approved by: Aleksandr Paul M.D. Radiologis
== END | disposition home or self-care (01) ==
LOC: RADMAMWWP 09:30
PROVIDERS: ATTEND Internal Medicine
DX: Z12.31 Encounter for screening mammogram for malignant neoplasm of breast (principal); Z78.0 Asymptomatic menopausal state
CPT/HCPCS: 77063; 77067

== ENCOUNTER → 2023-07-17 | Outpatient (CLI) | payer BC ==
[2023-07-17 16:44] LABS: ALT 23 U/L (8-44); AST 23 U/L (13-35); Albumin 4.4 g/dL (3.8-4.9); Albumin/Globulin Ratio 1.91 Ratio (1.60-3.17); Alkaline Phosphatase 90 U/L (41-126); Blood Urea Nitrogen 13.2 mg/dL (9.0-27.0); Calcium 9.8 mg/dL (8.7-10.3); Carbon Dioxide 24.1 mmol/L (21.6-31.8); Chloride 103 mmol/L (96-109); Chol/HDL Ratio 2.01 Ratio; Globulin 2.3 g/dL (1.6-3.3); Glucose 108 mg/dL (70-110); LDL Cholesterol,Calculated 46.6 mg/dL (0.0-131.0); Potassium 4.5 mmol/L (3.5-5.5); Sodium 141 mmol/L (135-145); Total Bilirubin 0.7 mg/dL (0.3-1.2); Total Protein 6.7 g/dL (6.2-8.2); VLDL Calculation 15.84 mg/dL (5.00-40.00)
== END | disposition home or self-care (01) ==
LOC: LABWHC1 09:14
PROVIDERS: ATTEND Nurse Practitioner Adult Health
DX: E78.2 Mixed hyperlipidemia (principal)
CPT/HCPCS: 36415; 80053; 80061

== ENCOUNTER → 2023-12-25 | Outpatient (CLI) | payer BC ==
[2023-12-25 15:54] LABS: ALT 21 U/L (8-44); AST 25 U/L (13-35); Chol/HDL Ratio 2.14 Ratio; LDL Cholesterol,Calculated 48.8 mg/dL (0.0-131.0); VLDL Calculation 13.48 mg/dL (5.00-40.00)
== END | disposition home or self-care (01) ==
LOC: LABWHC1 08:23
PROVIDERS: ATTEND Internal Medicine Interventional Cardiology
DX: E78.2 Mixed hyperlipidemia (principal)
CPT/HCPCS: 36415; 80061; 84450; 84460

== ENCOUNTER → 2024-06-01 | Outpatient (CLI) | payer BC ==
--- NOTE | 2024-06-01 08:37 | MM ---
Reason for Exam: Screening (asymptomatic). Last screening mammogram was performed 12 month(s) ago. Patient History: Menarche at age 11. Patient has no children. Postmenopausal. Hormonal Contraceptives for 15 years until age 40. Risk Values: Danii 5 year model risk: 1.6%. NCI Lifetime model risk: 9.3%. Prior Study Comparison: 05/12/2021 Bilateral Screening Mammogram, [facility]. 05/14/2022 Bilateral MG 3D screening mammo w/cad, [facility]. 05/16/2023 Bilateral MG 3D screening mammo w/cad, [facility]. Tissue Density: There are scattered areas of fibroglandular density. Findings: Analyzed By CAD. There is no suspicious group of microcalcifications or new suspicious mass in either breast. Overall Assessment: Negative, BI-RAD 1 Management: Screening Mammogram of both breasts in 1 year. . Patient should continue monthly self-breast exams. A clinical breast exam by your physician is recommended on an annual basis. This exam should not preclude additional follow-up of suspicious palpable abnormalities. Note on Danii scores and lifetime risk: 1. A Danii score greater than 3% is considered moderate risk. If this is the case, consider specialist referral to assess eligibility for a risk reducing agent. 2. If overall lifetime risk for the development of breast cancer is 20% or higher, the patient may qualify for future screening with alternating mammogram and breast MRI. [facility], , 06/01/2024 8:34 AM. Electronically signed and approved by: Aleksandr Paul M.D. Radiologis
--- NOTE | 2024-06-01 12:52 | BD ---
EXAMINATION TYPE: Axial Bone Density DATE OF EXAM: 06/01/2024 CLINICAL HISTORY: 58 years old Female. ICD-10 CODE: M85.88 DISORDER OF BONE , Additional History: Height: 64.25 Weight: 169.1 FRAX RISK QUESTIONS: Alcohol (3 or more units per day): yes Family History (Parent hip fracture): no Glucocorticoids (More than 3mos): no (Ex: prednisone, prednisolone, methylprednisolone, dexamethasone, and hydrocortisone). History of Fracture in Adulthood: ankle, toe, Secondary Osteoporosis: 1. Type 1 Diabetes: no 2. Hyperthyroidism: no 3. Menopause before 45: no 4. Malnutrition: no 5. Chronic liver disease: no Rheumatoid Arthritis: no Current Tobacco Use: no RISK FACTORS HISTORY OF: Hip Fracture (Right/Left): no Spine Fracture: no History of Wrist Fracture: no Surgery to Spine/Hip(right/left)/Wrist (right/left): no MEDICATIONS: Thyroid Medications:Levothyroxine How Long: past 2 years Osteoporosis Medications: no EXAM MEASUREMENTS: Bone mineral densitometry was performed using the [facility] [facility]. Bone mineral density as measured about the Lumbar spine is: ----- L1-L4(G/cm2): 1.026 T Score Values are as follows: ----- L1: -1.6 ----- L2: -2.0 ----- L3: -1.2 ----- L4: -0.6 ----- L1-L4: -1.3 Z Score Values are as follows: ----- L1: -0.9 ----- L2: -1.3 ----- L3: -0.6 ----- L4: 0.1 ----- L1-L4: -0.6 Bone mineral density has: increased 0.8 % since study of: 05/31/2021 Bone mineral density about the R hip (g/cm2): 0.911 Bone mineral density about the L hip (g/cm2): 0.991 T Score values are as follows: -----R Neck: -1.3 -----L Neck: -1.4 -----R Total: -0.8 -----L Total: -0.1 Z Score values are as follows: -----R Neck: -0.4 -----L Neck: -0.5 -----R Total: -0.2 -----L Total: 0.4 Bone mineral density has: decreased -1.7 % since study of: 05/31/2021 FRAX%s: The graph provided illustrates a 15.2% chance for a major osteoporotic fx and a 1.6% chance f or the hips probability for fx in 10 years time. IMPRESSION: Osteopenia (T Score between -2.5 and -1). There is slightly increased risk of fracture and the patient may be considered for treatment. Re-Screen 2-5 years. NOTE: T-SCORE=SD OF THE YOUNG ADULT MEAN. [facility], , 06/01/2024 12:50 PM
== END | disposition home or self-care (01) ==
LOC: RADBDWWP 08:01
PROVIDERS: ATTEND Internal Medicine
DX: Z12.31 Encounter for screening mammogram for malignant neoplasm of breast (principal); R92.323 Mammographic fibroglandular density, bilateral breasts; Z92.0 Personal history of contraception; M85.89 Other specified disorders of bone density and structure, multiple sites; Z78.0 Asymptomatic menopausal state
CPT/HCPCS: 77063; 77067; 77080

== ENCOUNTER → 2024-06-24 | Outpatient (CLI) | payer BC ==
[2024-06-24 15:25] LABS: ALT 28 U/L (8-44); AST 30 U/L (13-35); Albumin 4.2 g/dL (3.8-4.9); Albumin/Globulin Ratio 1.91 Ratio (1.60-3.17); Alkaline Phosphatase 90 U/L (41-126); Blood Urea Nitrogen 11.2 mg/dL (9.0-27.0); Calcium 9.4 mg/dL (8.7-10.3); Chloride 104 mmol/L (96-109); Globulin 2.2 g/dL (1.6-3.3); Glucose 101 mg/dL (70-110); LDL Cholesterol,Calculated 51.4 mg/dL (0.0-131.0); Potassium 4.2 mmol/L (3.5-5.5); Sodium 140 mmol/L (135-145); Total Bilirubin 0.6 mg/dL (0.3-1.2); Total Protein 6.4 g/dL (6.2-8.2); VLDL Calculation 14.12 mg/dL (5.00-40.00)
== END | disposition home or self-care (01) ==
LOC: LABWHC1 09:16
PROVIDERS: ATTEND Internal Medicine Interventional Cardiology
DX: I10 Essential (primary) hypertension (principal); E78.2 Mixed hyperlipidemia
CPT/HCPCS: 36415; 80053; 80061